=== PATIENT | female | born 1960 | race Caucasian/White ===

== ENCOUNTER 2017-06-03 11:47 | Inpatient (IN) | payer OTHER ==
[~2017-06-03] VITALS: Ht 154.9 cm; Wt 67.0 kg
[~2017-06-03 11:47] MED LIST: AMOX1TAB43 PO; BND25 PO; CETI10TA10 PO; FURO20TA PO; LEVO150T9 PO; LXP10 PO; NRN300 PO; ZVRO EXT
--- NOTE | 2017-06-03 12:41 | EMERGENCY ROOM VISIT NOTE ---
History Report prepared by Ganesh: Rachael Lewis Under the Supervision of: Dr. Pastor Ricks M.D. First contact with patient: 11:59 Chief Complaint: ABNORMAL LABS Stated Complaint: LOW BLOOD COUNT-NEED A TRANFUSION History of Present Illness The patient is a 57 year old female who presents to the Emergency Room with complaints of a low blood count. The patient reports that she was seen yesterday and was told that she had a low blood count, is anemic, and needs a transfusion. She states that she has an appointment in [address] Abdalla. She also states that she has hemorrhoids. The patient has been dizzy and light headed for a couple of months and states that she gets to the point that she can barely walk. She has also had shortness of breath and intermittent chest pain. She states that the last time she had chest pain was 2 weeks ago when she was walking. She describes the chest pain as being tight and only lasting for a few minutes. She also reports that she had black stool 1 month ago as well as bloody stool over 1 month ago. The patient admits that she has been drinking a 4 -pack of beer about every other day. She denies having abdominal pain and fevers. She also states that she does not have heart disease and that she does not take Ibuprofen or Naprosyn. She also states that she has a large hemorrhoid which she has had for some time. Source of History: patient Onset: yesterday Position: other (global) Quality: other (low blood count) Timing: constant Associated Symptoms: + chest pain, + SOB, + melena, + hematochezia, No fevers, No abdominal pain Note: additional symptoms: dizziness and light-headedness Review of Systems See HPI for pertinent positives & negatives. A total of 10 systems reviewed and were otherwise negative. Past Medical & Surgical Medical Problems: (1) Alcohol abuse (2) Anxiety (3) Benign hypertension (4) GI bleed (5) History of alcohol abuse (6) Hypothyroidism Family History No pertinent family history Social History Smoking Status: Current Every Day Smoker Alcohol Use: heavy Marital Status: Housing Status: lives with family Occupation Status: unemployed Current/Historical Medications Scheduled Furosemide (Lasix), 1 TAB PO DAILY Gabapentin (Neurontin), 300 MG PO TID Levothyroxine Sodium (Levothyroxine Sodium), 1 TAB PO DAILY Potassium Chloride (Micro-K Ext Rel), Unknown Dose PO DAILY Allergies Coded Allergies: No Known Allergies (Unverified , 06/03/17) Physical Exam Vital Signs Date Time Temp Pulse Resp B/P (MAP) Pulse Ox O2 Delivery O2 Flow Rate FiO2 06/03/17 15:05 81 135/83 99 Room Air 06/03/17 13:30 82 18 139/80 100 Room Air 06/03/17 13:14 72 06/03/17 11:54 36.8 81 17 138/76 100 Room Air Physical Exam Constitutional: Vital signs reviewed. Eyes: Pupils are equal round reactive to light. Conjunctiva are noninjected. ENT: Pharynx is clear without erythema or exudate. Mucous membranes are moist. Neck supple without meningeal signs. Respiratory: Clear to auscultation bilaterally. Breath sounds are equal bilaterally. Cardiovascular: Regular rate and rhythm. No rubs or gallops. GI: Soft, nondistended and nontender. Bowel sounds are present. Musculoskeletal: No peripheral edema. No lower extremity tenderness. Integumentary: No cyanosis. Pale. Rectal: Guaiac positive, brown stool, 2 by 4 cm mass at the 11 o'clock position above the anus with tenderness. No bleeding or thrombosis. Neurological: The patient is awake and alert. No focal deficits. Psychiatric: Normal affect. Medical Decision & Procedures ER Provider Diagnostic Interpretation: X-ray results as stated below per interpretation by me and the radiologist: CHEST ONE VIEW PORTABLE CLINICAL HISTORY: sob eval for pnea dyspnea COMPARISON STUDY: 10/02/2015 FINDINGS: The bones soft tissues and hemidiaphragms are normal. The cardiomediastinal silhouette is normal. The lungs are clear. The pulmonary vasculature is normal. IMPRESSION: Negative chest. Electronically signed by: Kirby Starr M.D. 06/03/2017 12:38 PM Dictated Date/Time: 06/03/2017 12:38 PM Laboratory Results 06/03/17 12:47 Red Blood Count 3.64, Mean Corpuscular Volume 63.5, Mean Corpuscular Hemoglobin 16.5, Mean Corpuscular Hemoglobin Concent 26.0, Neutrophils (%) (Auto) 70.2, Lymphocytes (%) (Auto) 17.1, Monocytes (%) (Auto) 12.3, Eosinophils (%) (Auto) 0.0, Basophils (%) (Auto) 0.4, Neutrophils # (Auto) 1.89, Lymphocytes # (Auto) 0.46, Monocytes # (Auto) 0.33, Eosinophils # (Auto) 0.00, Basophils # (Auto) 0.01 06/03/17 12:47 Test 06/03/17 12:47 06/03/17 13:00 White Blood Count 2.69 K/uL (4.8-10.8) Red Blood Count 3.64 M/uL (4.2-5.4) Hemoglobin 6.0 g/dL (12.0-16.0) Hematocrit 23.1 % (37-47) Mean Corpuscular Volume 63.5 fL (80-100) Mean Corpuscular Hemoglobin 16.5 pg (25-34) Mean Corpuscular Hemoglobin Concent 26.0 g/dl (32-36) Platelet Count 99 K/uL (130-400) Neutrophils (%) (Auto) 70.2 % Lymphocytes (%) (Auto) 17.1 % Monocytes (%) (Auto) 12.3 % Eosinophils (%) (Auto) 0.0 % Basophils (%) (Auto) 0.4 % Neutrophils # (Auto) 1.89 K/uL (1.4-6.5) Lymphocytes # (Auto) 0.46 K/uL (1.2-3.4) Monocytes # (Auto) 0.33 K/uL (0.11-0.59) Eosinophils # (Auto) 0.00 K/uL (0-0.5) Basophils # (Auto) 0.01 K/uL (0-0.2) RDW Standard Deviation 47.7 fL (36.4-46.3) RDW Coefficient of Variation 20.3 % (11.5-14.5) Immature Granulocyte % (Auto) 0.0 % Immature Granulocyte # (Auto) 0.00 K/uL (0.00-0.02) Platelet Estimate DECREASED Hypochromasia PRESENT Microcytosis PRESENT Prothrombin Time 14.6 SECONDS (9.0-12.0) Prothromb Time International Ratio 1.3 (0.9-1.1) Activated Partial Thromboplast Time 23.8 SECONDS (21.0-31.0) Partial Thromboplastin Ratio 0.9 Anion Gap 8.0 mmol/L (3-11) Est Creatinine Clear Calc Drug Dose 91.4 ml/min Estimated GFR () 117.9 Estimated GFR (Non- 101.7 BUN/Creatinine Ratio 16.4 (10-20) Calcium Level 9.5 mg/dl (8.5-10.1) Total Bilirubin 0.9 mg/dl (0.2-1) Direct Bilirubin 0.3 mg/dl (0-0.2) Aspartate Amino Transf (AST/SGOT) 30 U/L (15-37) Alanine Aminotransferase (ALT/SGPT) 24 U/L (12-78) Alkaline Phosphatase 93 U/L (45-117) Total Protein 7.4 gm/dl (6.4-8.2) Albumin 3.3 gm/dl (3.4-5.0) Lipase 183 U/L (73-393) Bedside Troponin I < 0.030 ng/ml (0-0.045) Laboratory results as reviewed by me. ECG Indication: weakness Rate (beats per minute): 76 Rhythm: normal sinus Findings: no acute ischemic change, no ectopy ED Course 1210: The patient was evaluated in room A12. A complete history and physical exam was performed. 1300: I obtained written and verbal consent for blood transfusion; discussed test results with patient. 1345: The blood bank says they cannot get blood for her for another 3-4 hours due to multiple antibodies requiring obtaining the blood from [place]. 1406: I spoke with Dr. Haley of [facility]. We discussed the patient and her results. 1430: I let her know about the delay for the blood products. 1442: I talked to Dr. Haley again and let him know that the blood won't be here until tomorrow morning. 1500: The patient will be further evaluated by Dr. Haley. Medical Decision This is a 57-year-old female presents with shortness breath, chest pain and anemia. Differential diagnosis includes severe anemia, GI bleed, coronary artery disease, pneumonia, kidney disease. I did perform a limited focused review of portions of the patient's old chart on the electronic medical record. The patient has had no recent pertinent visits to this hospital. Blood Pressure Screening: Patient was found to have an elevated blood pressure and was referred to their primary doctor for recheck and further treatment. Medication Reconciliation: I attest that I have personally reviewed the patient' s current medication list. I did evaluate the patient as noted above. I did perform a rectal examination on the patient. She has guaiac positive brown stool but no gross blood. There is a mass superior to her anus which looks like a hemorrhoid but appears to be an odd position for a hemorrhoid. It is tender to touch but without thrombosis or bleeding. She states she has had that for a very long time and is scheduled to see her doctor for it. This was the reason she had blood work drawn yesterday. IV access was established. The patient was placed on a continuous alarm security or surveillance monitor. I did order and personally review the patient's 12-lead EKG and chest x-ray as described above. I did order and review the patient's blood work as noted in the electronic medical record. She is pancytopenic which she has been in the past. Her hemoglobin, however, is 6 today. I did order 2 units of packed RBCs for transfusion. I did obtain written and oral consent for the transfusion after discussing risks and benefits with the patient. Unfortunately the blood bank states that because of her antibodies blood with have to be obtained from the [place] and that she would not be able to get the blood till tomorrow morning. She will be hospitalized for further evaluation and transfusion. I did discuss case with the hospitalist and caser up. Consults Time Called: 1330 Consulting Physician: Dr. Tera Brannon Returned Call: [phone] Haley of [facility]. We discussed the patient and her results. The patient will be further evaluated by Dr. Haley. Additional Consults: Time Called: 1440 Consulted Physician: Dr. Haely Returned Call: [phone] Additional Comments: I talked to Dr. Haley again and let him know that the blood won't be here until tomorrow morning. Impression Primary Impression: Severe anemia Additional Impressions: GI bleed Pancytopenia Acute chest pain Scribe Attestation The scribe's documentation has been prepared under my direct and personally reviewed by me in its entirety. I confirm that the note above accurately reflects all work, treatment, procedures, and medical decision making performed by me. Departure Information Dispostion Being Evaluated By Hospitalist Referrals Nina Abdalla D.O. (PCP) Patient Instructions My [facility] Problem Qualifiers Additional Impressions: GI bleed GI bleed type/associated pathology: unspecified gastrointestinal hemorrhage type Qualified Codes: K92.2 - Gastrointestinal hemorrhage, unspecified
[2017-06-03 13:29] LABS: INR 1.3 (0.9-1.1); PARTIAL THROMBOPLASTIN RATIO 0.9; PROTHROMBIN TIME (PATIENT) 14.6 SECONDS (9.0-12.0)
[2017-06-03 13:40] LABS: HEMATOCRIT 23.1 % (37-47); MEAN CELL VOLUME 63.5 fL (80-100); MEAN CORPUSCULAR HEMOGLOBIN 16.5 pg (25-34); PLATELET COUNT 99 K/uL (130-400); RED BLOOD COUNT 3.64 M/uL (4.2-5.4); WHITE BLOOD COUNT 2.69 K/uL (4.8-10.8)
[2017-06-03 13:42] LABS: BASO % 0.4 %; BASO ABS # 0.01 K/uL (0-0.2); BUN/CREATININE RATIO 16.4 (10-20); CALCIUM 9.5 mg/dl (8.5-10.1); COMPLETE YES; CREATININE 0.59 mg/dl (0.60-1.20); HYPOCHROMIA PRESENT; LYMPH % 17.1 %; LYMPH ABS # 0.46 K/uL (1.2-3.4); MICROCYTOSIS PRESENT; MONO % 12.3 %; NEUT % 70.2 %; PLT ESTIMATE DECREASED; POTASSIUM 3.6 mmol/L (3.5-5.1)
[2017-06-03] MEDS ORDERED: POTA10CA28 PO (13:54)
[2017-06-03] MEDS ORDERED: LEVO100T7 PO (13:54)
[2017-06-03] MEDS ORDERED: GABA-113 PO (13:54)
[2017-06-03] MEDS ORDERED: OCTREOTIDE IV BOLUS & DRIP IV STA (14:46)
[2017-06-03] MEDS ORDERED: MoRPHine SULFATE 2 MG/ML CARP IV STA (14:56)
[2017-06-03] MEDS ORDERED: ALUMINUM/MAGNESIUM/SIMETH (MAALOX MAX) 30 ML UDC PO PRN (15:00)
[2017-06-03] MEDS ORDERED: MAGNESIUM HYDROXIDE SUSP 30 ML UDC PO PRN (15:00)
[2017-06-03] MEDS ORDERED: ONDANSETRON INJ 2 MG/ML 2 ML VIAL IV PRN (15:00)
[2017-06-03] MEDS ORDERED: GABAPENTIN 600 MG TAB PO SCH ×2 (15:00→16:30)
[2017-06-03] MEDS ORDERED: LORAZEPAM 2 MG/ML 1 ML VIAL IV PRN (15:00)
[2017-06-03 16:00] VITALS: BP 127/68; PULSE 80; TEMP 36.9; O2SAT 100; Ht 154.9 cm; Wt 67.0 kg
[2017-06-03] MEDS ORDERED: OCTREOTIDE ACETATE INJ 100 MCG in SYRINGE 9 ML IV SCH (16:10)
[2017-06-03] MEDS ORDERED: OCTREOTIDE ACETATE INJ 500 MCG in NSS 100ML IV SCH (16:15)
[2017-06-03] MEDS ORDERED: PANTOprazole INJ 80 MG in DEXTROSE 5% 100ML IV SCH (16:15)
[2017-06-03] MEDS ORDERED: PANTOprazole INJ 40 MG in DEXTROSE 5% 100ML IV SCH (16:30)
[2017-06-03] MEDS ORDERED: MULTI-VITAMIN INFUSION INJ 10 ML, THIAMINE HCL INJ 100 MG, FoLIC ACID INJ 1 MG in SODIU... IV ONE (16:30)
[2017-06-03] MEDS: SODIUM CHLORIDE 0.9% 1000ML 1,000 ML IV SCH (16:33)
--- NOTE | 2017-06-03 16:46 | Gastrointestinal Consultation ---
Gastrointestinal Consultation Date of Consultation: Jun 03, 2017 Attending Physician: Martin Haley Consulting Physician: Rosie Barrera Reason for Consultation: Anemia History of Present Illness Patient is a 57 year old female w PMHx of ETOH abuse, anxiety, HTN, hypothyroidism who was referred to ED after her outpt labs showed significant anemia Hgb of 5. Repeat CBC in ED: WBC 2.69, H/H 6/23, Plt 99. PT/INR 14.6/1.3. CMP, including LFTs and Lipase normal. Pt denies any dizziness, light headedness , CP, SOB. May feels slightly tired. Though on ED H&P it was noted she was feeling dizzy, light headed, can barely walk, also having intermittent SOB, CP. She denies any n/v, abd pain. Had issues w dark colored stools up to 4 months ago but not recently. She is c/o mass on perineal area that's bleeding on daily basis. This mass has been present x 1 year, and is irritated by end of day causing some bright red bleeding notable on underwear. She denies any vaginal or rectal bleeding. She had been prescribed hemorrhoidal cream to the mass w/o relief of the discomfort, or bleeding. Past Medical/Surgical History Medical Problems: (1) Acute chest pain Status: Acute (2) Pancytopenia Status: Acute (3) Severe anemia Status: Acute Past Medical History: See above Family History No pertinent family history Social History Smoking Status: Current Some Day Smoker Alcohol Use: heavy Drug Use: none Marital Status: Housing Status: lives with family Occupation Status: unemployed Allergies Coded Allergies: No Known Allergies (Unverified , 06/03/17) Current Medications Home Meds and Scripts Medications Dose Route/Sig Max Daily Dose Days Date Category Micro-K Ext Rel (Potassium Chloride) 10 Meq Capcr Unknown Dose PO DAILY 06/03/17 Reported Neurontin (Gabapentin) 300 Mg Cap 300 Mg PO TID 06/03/17 Reported Levothyroxine Sodium 100 Mcg Tab 1 Tab PO DAILY 06/03/17 Reported Lasix (Furosemide) 20 Mg Tab 1 Tab PO DAILY 10/02/15 Rx Review of Systems Constitutional: No fever, No chills Respiratory: + dyspnea on exertion, No cough Cardiac: No chest pain Abdomen: No pain, No nausea, No vomiting Endo: + fatigue Skin: + see HPI Physical Exam Date Time Temp Pulse Resp B/P (MAP) Pulse Ox O2 Delivery O2 Flow Rate FiO2 06/03/17 16:00 36.9 80 15 127/68 100 Room Air 06/03/17 15:40 81 18 135/83 99 06/03/17 15:05 81 135/83 99 Room Air 06/03/17 13:30 82 18 139/80 100 Room Air 06/03/17 13:14 72 06/03/17 11:54 36.8 81 17 138/76 100 Room Air General Appearance: WD/WN, no apparent distress Eyes: normal inspection, PERRL, EOMI Neck: supple, no JVD, trachea midline Respiratory/Chest: normal breath sounds, no respiratory distress, no accessory muscle use Cardiovascular: regular rate, rhythm, no gallop, no murmur Abdomen: normal bowel sounds, non tender, soft Extremities: normal inspection, no pedal edema, no calf tenderness Neurologic/Psych: alert, normal mood/affect, oriented x 3 Skin: normal color, no jaundice, no rash, + pertinent finding (Perineal area w firm and tender mass; doesn't appear like an abscess (no erythema, warmth), no discharge or blood noted. ) Laboratory Results Last 24 Hours Test 06/03/17 12:47 06/03/17 13:00 White Blood Count 2.69 K/uL Red Blood Count 3.64 M/uL Hemoglobin 6.0 g/dL Hematocrit 23.1 % Mean Corpuscular Volume 63.5 fL Mean Corpuscular Hemoglobin 16.5 pg Mean Corpuscular Hemoglobin Concent 26.0 g/dl Platelet Count 99 K/uL Neutrophils (%) (Auto) 70.2 % Lymphocytes (%) (Auto) 17.1 % Monocytes (%) (Auto) 12.3 % Eosinophils (%) (Auto) 0.0 % Basophils (%) (Auto) 0.4 % Neutrophils # (Auto) 1.89 K/uL Lymphocytes # (Auto) 0.46 K/uL Monocytes # (Auto) 0.33 K/uL Eosinophils # (Auto) 0.00 K/uL Basophils # (Auto) 0.01 K/uL RDW Standard Deviation 47.7 fL RDW Coefficient of Variation 20.3 % Immature Granulocyte % (Auto) 0.0 % Immature Granulocyte # (Auto) 0.00 K/uL Platelet Estimate DECREASED Hypochromasia PRESENT Microcytosis PRESENT Prothrombin Time 14.6 SECONDS Prothromb Time International Ratio 1.3 Activated Partial Thromboplast Time 23.8 SECONDS Partial Thromboplastin Ratio 0.9 Sodium Level 142 mmol/L Potassium Level 3.6 mmol/L Chloride Level 109 mmol/L Carbon Dioxide Level 25 mmol/L Anion Gap 8.0 mmol/L Blood Urea Nitrogen 10 mg/dl Creatinine 0.59 mg/dl Est Creatinine Clear Calc Drug Dose 91.4 ml/min Estimated GFR () 117.9 Estimated GFR (Non- 101.7 BUN/Creatinine Ratio 16.4 Random Glucose 108 mg/dl Calcium Level 9.5 mg/dl Total Bilirubin 0.9 mg/dl Direct Bilirubin 0.3 mg/dl Aspartate Amino Transf (AST/SGOT) 30 U/L Alanine Aminotransferase (ALT/SGPT) 24 U/L Alkaline Phosphatase 93 U/L Total Protein 7.4 gm/dl Albumin 3.3 gm/dl Lipase 183 U/L Bedside Troponin I < 0.030 ng/ml Impression Patient is a 57 year old female currently seen for significant anemia (H/H 05/14) . She is w hx of ETOH cirrhosis (MELD 9), previous EGDs showed Grade I-II esophageal varices, Fariba Rao tear. Last EGD done in 2012. Colonoscopy in 2012 showed TA and TVA polyps w/o high grade dysplasia. She is currently w/o s/s of active GI bleeding though had been c/o perineal mass x 1 year that's irritating, tender and bleeding on daily basis. Plan - Ok for PPI IV BID - NPO after midnight for EGD eval tomorrow; she will need repeat colonoscopy though w currently how irritated perineal mass is will avoid bowel prep for colonoscopy. Will plan for outpt colonoscopy - Monitor H/H and transfuse prn - [employer] consulted for perineal mass eval.
--- NOTE | 2017-06-03 17:16 | History and Physical ---
History & Physical Date & Time of Service: Jun 03, 2017 at 17:04 Chief Complaint: Gi Bleed, Severe Anemia Primary Care Physician: Nina Abdalla D.O. History of Present Illness Source: patient, clinic records, hospital records This is a 57 year old female with a PMH of alcohol abuse, hx. of liver cirrhosis and esophageal varices, pancytopenia, hypothyroidism, depression presents to the ER after being sent by her primary care doctor - she had blood work done as an outpatient and was noted to have severe anemia. She states that she has had weakness/shortness of breath for a few weeks. She mentions that she has had dark stools a month ago, and has also vomiting with blood about two months ago, but nothing unusual since then. Currently denies fevers/chills, chest pain or shortness of breath, no nausea/vomiting/diarrhea. Painful perineal mass - unsure of when this began. Past Medical/Surgical History Medical Problems: (1) Alcohol abuse Status: Resolved (2) Anxiety Status: Chronic (3) Benign hypertension Status: Chronic (4) GI bleed Status: Resolved (5) History of alcohol abuse Status: Chronic (6) Hypothyroidism Status: Chronic Family History No pertinent family history Social History Smoking Status: Current Some Day Smoker Drug Use: none Marital Status: Occupational Status: unemployed Immunizations History of Influenza Vaccine: No Influenza Vaccine Date: Feb 01, 2012 History of Tetanus Vaccine?: Yes History of Pneumococcal: No History of Hepatitis B Vaccine: Unknown Multi-Drug Resistant Organisms History of MDRO: Yes Type of MDRO: MRSA Allergies Coded Allergies: No Known Allergies (Unverified , 06/03/17) Home Medications Scheduled Furosemide (Lasix), 1 TAB PO DAILY Gabapentin (Neurontin), 300 MG PO TID Levothyroxine Sodium (Levothyroxine Sodium), 1 TAB PO DAILY Potassium Chloride (Micro-K Ext Rel), Unknown Dose PO DAILY Review of Systems Constitutional: No fever, No chills, No sweats, No weakness, No fatigue Respiratory: No cough, No sputum, No wheezing, No shortness of breath, No dyspnea on exertion, No dyspnea at rest, No hemoptysis Cardiovascular: No chest pain, No edema, No palpitations Abdomen: + GI bleeding (dark stools), No pain, No nausea, No vomiting, No diarrhea, No constipation Musculoskeletal: No joint pain, No muscle pain Genitourinary - Female: No dysuria, No urinary frequency, No urinary urgency, No urinary incontinence, No urinary retention, No hematuria Neurologic: No memory loss, No weakness, No numbness/tingling, No balance problems Psychiatric: + substance abuse (ETOH), No depression symptoms (controlled with medications), No anxiety, No insomnia Endocrine: No fatigue Hematologic / Lymphatic: + abnormal bleeding/bruising (dark stools, hx. of vomiting bright blood) Allergic / Immunologic: No environmental allergies, No seasonal allergies Physical Exam Vital Signs Date Time Temp Pulse Resp B/P (MAP) Pulse Ox O2 Delivery O2 Flow Rate FiO2 06/03/17 16:00 36.9 80 15 127/68 100 Room Air 06/03/17 15:40 81 18 135/83 99 06/03/17 15:05 81 135/83 99 Room Air 06/03/17 13:30 82 18 139/80 100 Room Air 06/03/17 13:14 72 06/03/17 11:54 36.8 81 17 138/76 100 Room Air General Appearance: no apparent distress Head: normocephalic, atraumatic Eyes: normal inspection ENT: hearing grossly normal Respiratory/Chest: lungs clear, normal breath sounds, no respiratory distress, no accessory muscle use Cardiovascular: regular rate, rhythm, no edema, no murmur Abdomen/GI: normal bowel sounds, non tender, soft, + pertinent finding (+ perineal mass) Extremities/Musculoskelatal: no calf tenderness, normal capillary refill, no pedal edema Neurologic/Psych: no motor/sensory deficits, alert, normal mood/affect Diagnostics Laboratory Results Results Past 24 Hours Test 06/03/17 12:47 06/03/17 13:00 Range/Units White Blood Count 2.69 4.8-10.8 K/uL Red Blood Count 3.64 4.2-5.4 M/uL Hemoglobin 6.0 12.0-16.0 g/dL Hematocrit 23.1 37-47 % Mean Corpuscular Volume 63.5 80-100 fL Mean Corpuscular Hemoglobin 16.5 25-34 pg Mean Corpuscular Hemoglobin Concent 26.0 32-36 g/dl Platelet Count 99 130-400 K/uL Neutrophils (%) (Auto) 70.2 % Lymphocytes (%) (Auto) 17.1 % Monocytes (%) (Auto) 12.3 % Eosinophils (%) (Auto) 0.0 % Basophils (%) (Auto) 0.4 % Neutrophils # (Auto) 1.89 1.4-6.5 K/uL Lymphocytes # (Auto) 0.46 1.2-3.4 K/uL Monocytes # (Auto) 0.33 0.11-0.59 K/uL Eosinophils # (Auto) 0.00 0-0.5 K/uL Basophils # (Auto) 0.01 0-0.2 K/uL RDW Standard Deviation 47.7 36.4-46.3 fL RDW Coefficient of Variation 20.3 11.5-14.5 % Immature Granulocyte % (Auto) 0.0 % Immature Granulocyte # (Auto) 0.00 0.00-0.02 K/uL Platelet Estimate DECREASED Hypochromasia PRESENT Microcytosis PRESENT Prothrombin Time 14.6 9.0-12.0 SECONDS Prothromb Time International Ratio 1.3 0.9-1.1 Activated Partial Thromboplast Time 23.8 21.0-31.0 SECONDS Partial Thromboplastin Ratio 0.9 Sodium Level 142 136-145 mmol/L Potassium Level 3.6 3.5-5.1 mmol/L Chloride Level 109 98-107 mmol/L Carbon Dioxide Level 25 21-32 mmol/L Anion Gap 8.0 3-11 mmol/L Blood Urea Nitrogen 10 7-18 mg/dl Creatinine 0.59 0.60-1.20 mg/dl Est Creatinine Clear Calc Drug Dose 91.4 ml/min Estimated GFR () 117.9 Estimated GFR (Non- 101.7 BUN/Creatinine Ratio 16.4 10-20 Random Glucose 108 70-99 mg/dl Calcium Level 9.5 8.5-10.1 mg/dl Total Bilirubin 0.9 0.2-1 mg/dl Direct Bilirubin 0.3 0-0.2 mg/dl Aspartate Amino Transf (AST/SGOT) 30 15-37 U/L Alanine Aminotransferase (ALT/SGPT) 24 12-78 U/L Alkaline Phosphatase 93 45-117 U/L Total Protein 7.4 6.4-8.2 gm/dl Albumin 3.3 3.4-5.0 gm/dl Lipase 183 73-393 U/L Bedside Troponin I < 0.030 0-0.045 ng/ml Diagnostic Radiology CHEST ONE VIEW PORTABLE CLINICAL HISTORY: sob eval for pnea dyspnea COMPARISON STUDY: 10/02/2015 FINDINGS: The bones soft tissues and hemidiaphragms are normal. The cardiomediastinal silhouette is normal. The lungs are clear. The pulmonary vasculature is normal. IMPRESSION: Negative chest. EKG Normal sinus rhythm Normal ECG Impression Assessment and Plan This is a 57 year old female with a PMH of alcohol abuse, hx. of liver cirrhosis and esophageal varices, pancytopenia, hypothyroidism, depression sent to the ER for severe anemia Severe Anemia Hgb on admission = 6.0 requires blood from [place], which will arrive in AM (06/04) type and crossed, will transfuse two units when available possibly from an upper GI bleed source hx. of esophageal varices, unsure if she ever had an EGD done in the past initially started on Protonix and Sandostatin drips - stopped and now on PPI BID as per GI consulted GI for further input likely EGD in AM (06/04); colonoscopy as outpatient Perineal Mass no hemorrhoids, no abscess consulted trading assistant for further input EtOH abuse last drink was yesterday (06/02) does not admit to a drinking problem, though records indicate early cirrhosis will put in for gabapentin withdrawal protocol one day of banana bag, then switch to multivitamin, folic acid, thiamine check Mag and replace if needed Hypothyroidism continue Synthroid DVT ppx SCDs FULL CODE Advanced Directives Existing Living Will: No Existing Power of Insulator Apprentice: No VTE Prophylaxis VTE Risk Assessment Done? Y/N: Yes Risk Level: Moderate
[2017-06-03] MEDS: PANTOprazole INJ 40 MG in SYRINGE 0 ML IV SCH (17:41)
[2017-06-03] MEDS ORDERED: MoRPHine SULFATE 2 MG/ML CARP IV SCH (17:45)
[2017-06-03 19:01] VITALS: BP 123/73; PULSE 91; TEMP 37; O2SAT 95
[2017-06-03 20:00] VITALS: O2SAT 95
[2017-06-03] MEDS ORDERED: GABAPENTIN 300 MG CAP PO SCH (21:00)
[2017-06-03] MEDS: GABAPENTIN 600MG Q6H DOSE PO SCH (21:03)
[2017-06-03] MEDS: MoRPHine SULFATE 2 MG/ML CARP IV PRN (21:08)
[2017-06-03 23:32] VITALS: BP 108/72; PULSE 81; TEMP 37.1; O2SAT 96
[2017-06-03 23:59] VITALS: O2SAT 96
[2017-06-04] VITALS (18 sets, daily range): BP systolic 95–129; BP diastolic 60–79; PULSE 66–82; TEMP 36.6–37.3; O2SAT 94–100
[2017-06-04] MEDS: MoRPHine SULFATE 2 MG/ML CARP IV PRN ×6 (01:14→22:40)
[2017-06-04] MEDS: SODIUM CHLORIDE 0.9% 1000ML 1,000 ML IV SCH ×2 (01:15→18:35)
[2017-06-04] MEDS: GABAPENTIN 600MG Q6H DOSE PO SCH (05:19)
[2017-06-04] MEDS: LEVOTHYROXINE 100 MCG TAB PO SCH (05:20)
[2017-06-04] MEDS: PANTOprazole INJ 40 MG in SYRINGE 0 ML IV SCH (07:50)
[2017-06-04] MEDS: POTASSIUM CHLORIDE 20 MEQ TABCR PO SCH (07:51)
[2017-06-04] MEDS: FUROSEMIDE 20 MG TAB PO SCH (07:51)
[2017-06-04] MEDS ORDERED: PROPOFOL IV EMULSION 10 MG/ML 20 ML VIAL IV ONE (08:15)
[2017-06-04] MEDS ORDERED: LIDOCAINE HCL 2% 2 ML VIAL (20MG/ML) ONE (08:15)
--- NOTE | 2017-06-04 09:18 | GI REPORT ---
Procedure Date: 06/04/2017 8:56 AM Procedure: Upper GI endoscopy Indications: Iron deficiency anemia Medicines: Propofol per Anesthesia Complications: No immediate complications. Estimated blood loss: None. Estimated Blood Loss: Estimated blood loss: none. Procedure: Pre-Anesthesia Assessment: - Prior to the procedure, a History and Physical was performed, and patient medications, allergies and sensitivities were reviewed. The patient's tolerance of previous anesthesia was reviewed. - The risks and benefits of the procedure and the sedation options and risks were discussed with the patient. All questions were answered and informed consent was obtained. - Patient identification and proposed procedure were verified prior to the procedure by the physician and the nurse. The procedure was verified in the pre-procedure area in the procedure room. - Mental Status Examination: alert and oriented. Airway Examination: normal oropharyngeal airway and neck mobility. Respiratory Examination: clear to auscultation. CV Examination: normal. Abdominal Examination: bowel sounds present, abdomen soft and non-tender, no masses or organomegaly noted. - ASA Grade Assessment: IV - A patient with severe systemic disease that is a constant threat to life. After obtaining informed consent, the endoscope was passed under direct vision. Throughout the procedure, the patient's blood pressure, pulse, and oxygen saturations were monitored continuously. The scope was introduced through the mouth, and advanced to the second part of duodenum. The upper GI endoscopy was accomplished without difficulty. The patient tolerated the procedure well. Findings: Grade II varices were found in the lower third of the esophagus. A large amount of food (residue) was found in the gastric body. Impression: - Grade II esophageal varices. No stigmata of bleeding. not banded today secondary to a large amount of food in the stomach. Will need a repeat EGD at the time of her outpatient colonoscopy. - A large amount of food (residue) in the stomach. - No specimens collected. Recommendation: - Perform a colonoscopy at appointment to be scheduled. - Perform an upper GI endoscopy at appointment to be scheduled. - Advance diet as tolerated. - Return patient to [facility] for ongoing care. Rosie Barrera D.O. Rosie Barrera DO 06/04/2017 9:18:48 AM This report has been signed electronically. Note Initiated On: 06/04/2017 8:56 AM I attest to the content of the Intraoperative Record and orders documented therein, exceptions below
--- NOTE | 2017-06-04 09:28 | Anesthesiology Progress Note ---
Anesthesia Post Op Note Date & Time Jun 04, 2017 at 09:28 Vital Signs Pain Intensity: 8.0 Vital Signs Past 12 Hours Date Time Temp Pulse Resp B/P (MAP) Pulse Ox O2 Delivery O2 Flow Rate FiO2 06/04/17 09:21 70 18 111/69 (83) 93 Room Air 06/04/17 09:06 69 18 111/76 (88) 97 Room Air 06/04/17 08:38 37.2 75 20 129/79 96 Room Air 06/04/17 08:36 37.2 68 20 129/79 96 06/04/17 08:31 37.2 68 20 129/79 (96) 96 Room Air 06/04/17 08:00 66 18 115/71 94 06/04/17 07:30 37.0 68 20 110/70 95 06/04/17 07:15 36.8 66 20 104/72 94 06/04/17 07:10 37.2 67 16 106/71 (83) 96 Room Air 06/04/17 07:00 36.9 71 18 106/71 95 06/04/17 06:50 37.2 70 18 110/71 95 06/04/17 06:00 36.6 69 18 121/69 96 06/04/17 05:20 37.0 82 16 110/76 94 06/04/17 05:05 37.0 69 18 109/64 96 06/04/17 04:50 36.6 68 16 102/65 96 06/04/17 04:34 36.6 71 18 112/67 96 06/04/17 04:00 95 Room Air 06/04/17 04:00 37.2 81 20 122/70 (87) 95 Room Air 06/03/17 23:59 96 Room Air 06/03/17 23:32 37.1 81 20 108/72 (84) 96 Room Air Notes Mental Status: alert / awake / arousable, participated in evaluation Pt Amnestic to Procedure: Yes Nausea / Vomiting: adequately controlled Pain: adequately controlled Airway Patency, RR, SpO2: stable & adequate BP & HR: stable & adequate Hydration State: stable & adequate Anesthetic Complications: no major complications apparent
[2017-06-04 11:05] LABS: BUN/CREATININE RATIO 11.6 (10-20); CALCIUM 8.4 mg/dl (8.5-10.1); CREATININE 0.67 mg/dl (0.60-1.20); MAGNESIUM 1.8 mg/dl (1.8-2.4)
[2017-06-04 11:29] LABS: MEAN CELL VOLUME 68.5 fL (80-100); MEAN CORPUSCULAR HEMOGLOBIN 18.5 pg (25-34); PLATELET COUNT 85 K/uL (130-400); PLT ESTIMATE DECREASED; RED BLOOD COUNT 3.94 M/uL (4.2-5.4); WHITE BLOOD COUNT 2.51 K/uL (4.8-10.8)
--- NOTE | 2017-06-04 12:09 | Progress Note ---
Internal Med Progress Note Date of Service: Jun 04, 2017. Provider Documentation: SUBJECTIVE: Seen and examined at bedside. Denies any chest pain, SOB, melena, blood in stools. Feels well. Offers no complaints. Got EGD this morning OBJECTIVE: Vital Signs-as noted below Physical Exam: General Appearance:Moderately built and nourished, no apparent distress Head: normocephalic, Atraumatic Eyes: normal inspection, EOMI, PERRL Neck: supple, Trachea midline Respiratory/Chest: Normal breath sounds, CTA Cardiovascular: S1, S2, No murmur Abdomen/GI:Soft, Non tender, Bowel sounds present Extremities/Musculoskelatal:normal inspection, no edema Neurologic/Psych:AAOX3, grossly no focal neurological deficits Skin: normal color, warm Lab data as noted below. ASSESSMENT & PLAN: Patient is a 57 yr female with a PMH of alcohol abuse, hx. of liver cirrhosis and esophageal varices, pancytopenia, hypothyroidism, depression sent to the ER for severe anemia SEVERE ANEMIA/PANCYTOPENIA Hgb on admission:6.0 S/P 2 units PRBCs S/P EGD on 06/04: Grade II Esophageal Varices: no banding done secondary to large food in stomach Needs repeat EGD along with colonoscopy: likely to be done as outpatient Initially on Protonix and Sandostatin drips Continue IV PPI BID per GI GI following Monitor CBC Perineal Mass no hemorrhoids, no abscess consulted port captain for further input ETOH abuse last drink was on 06/02 does not admit to a drinking problem, though records indicate early cirrhosis Continue gabapentin withdrawal protocol Continue folic acid, thiamine Hypothyroidism continue Synthroid DVT ppx SCDs Re: pancytopenia CODE STATUS: FULL CODE Vital Signs: Date Time Temp Pulse Resp B/P (MAP) Pulse Ox O2 Delivery O2 Flow Rate FiO2 06/04/17 11:50 36.9 75 18 115/72 (86) 95 Room Air 06/04/17 09:34 70 18 112/69 (83) 95 Room Air 06/04/17 09:21 70 18 111/69 (83) 93 Room Air 06/04/17 09:06 69 18 111/76 (88) 97 Room Air 06/04/17 08:38 37.2 75 20 129/79 96 Room Air 06/04/17 08:36 37.2 68 20 129/79 96 06/04/17 08:31 37.2 68 20 129/79 (96) 96 Room Air 06/04/17 08:00 Room Air 06/04/17 08:00 66 18 115/71 94 06/04/17 07:30 37.0 68 20 110/70 95 06/04/17 07:15 36.8 66 20 104/72 94 06/04/17 07:10 37.2 67 16 106/71 (83) 96 Room Air 06/04/17 07:00 36.9 71 18 106/71 95 06/04/17 06:50 37.2 70 18 110/71 95 06/04/17 06:00 36.6 69 18 121/69 96 06/04/17 05:20 37.0 82 16 110/76 94 06/04/17 05:05 37.0 69 18 109/64 96 06/04/17 04:50 36.6 68 16 102/65 96 06/04/17 04:34 36.6 71 18 112/67 96 06/04/17 04:00 95 Room Air 06/04/17 04:00 37.2 81 20 122/70 (87) 95 Room Air 06/03/17 23:59 96 Room Air 06/03/17 23:32 37.1 81 20 108/72 (84) 96 Room Air 06/03/17 20:00 95 Room Air 06/03/17 19:01 37.0 91 18 123/73 (90) 95 Room Air 06/03/17 16:00 36.9 80 15 127/68 100 Room Air 06/03/17 15:40 81 18 135/83 99 06/03/17 15:05 81 135/83 99 Room Air 06/03/17 13:30 82 18 139/80 100 Room Air 06/03/17 13:14 72 Lab Results: Results Past 24 Hours Test 06/03/17 12:47 06/03/17 13:00 06/04/17 09:59 Range/Units White Blood Count 2.69 2.51 4.8-10.8 K/uL Red Blood Count 3.64 3.94 4.2-5.4 M/uL Hemoglobin 6.0 7.3 12.0-16.0 g/dL Hematocrit 23.1 27.0 37-47 % Mean Corpuscular Volume 63.5 68.5 80-100 fL Mean Corpuscular Hemoglobin 16.5 18.5 25-34 pg Mean Corpuscular Hemoglobin Concent 26.0 27.0 32-36 g/dl Platelet Count 99 85 130-400 K/uL Neutrophils (%) (Auto) 70.2 % Lymphocytes (%) (Auto) 17.1 % Monocytes (%) (Auto) 12.3 % Eosinophils (%) (Auto) 0.0 % Basophils (%) (Auto) 0.4 % Neutrophils # (Auto) 1.89 1.4-6.5 K/uL Lymphocytes # (Auto) 0.46 1.2-3.4 K/uL Monocytes # (Auto) 0.33 0.11-0.59 K/uL Eosinophils # (Auto) 0.00 0-0.5 K/uL Basophils # (Auto) 0.01 0-0.2 K/uL RDW Standard Deviation 47.7 56.6 36.4-46.3 fL RDW Coefficient of Variation 20.3 22.6 11.5-14.5 % Immature Granulocyte % (Auto) 0.0 % Immature Granulocyte # (Auto) 0.00 0.00-0.02 K/uL Platelet Estimate DECREASED DECREASED Hypochromasia PRESENT Microcytosis PRESENT Prothrombin Time 14.6 9.0-12.0 SECONDS Prothromb Time International Ratio 1.3 0.9-1.1 Activated Partial Thromboplast Time 23.8 21.0-31.0 SECONDS Partial Thromboplastin Ratio 0.9 Sodium Level 142 144 136-145 mmol/L Potassium Level 3.6 4.0 3.5-5.1 mmol/L Chloride Level 109 111 98-107 mmol/L Carbon Dioxide Level 25 25 21-32 mmol/L Anion Gap 8.0 8.0 3-11 mmol/L Blood Urea Nitrogen 10 8 7-18 mg/dl Creatinine 0.59 0.67 0.60-1.20 mg/dl Est Creatinine Clear Calc Drug Dose 91.4 81.3 ml/min Estimated GFR () 117.9 113.1 Estimated GFR (Non- 101.7 97.6 BUN/Creatinine Ratio 16.4 11.6 10-20 Random Glucose 108 107 70-99 mg/dl Calcium Level 9.5 8.4 8.5-10.1 mg/dl Total Bilirubin 0.9 0.2-1 mg/dl Direct Bilirubin 0.3 0-0.2 mg/dl Aspartate Amino Transf (AST/SGOT) 30 15-37 U/L Alanine Aminotransferase (ALT/SGPT) 24 12-78 U/L Alkaline Phosphatase 93 45-117 U/L Total Protein 7.4 6.4-8.2 gm/dl Albumin 3.3 3.4-5.0 gm/dl Lipase 183 73-393 U/L Bedside Troponin I < 0.030 0-0.045 ng/ml Magnesium Level 1.8 1.8-2.4 mg/dl Hepatitis C Antibody Screen NEG NEG
[2017-06-04] MEDS ORDERED: THIAMINE HCL 100 MG TAB PO ONE (12:15)
[2017-06-04] MEDS: GABAPENTIN 600MG Q8H DOSE PO SCH ×2 (14:09→22:40)
--- NOTE | 2017-06-04 17:02 | Medical Consult ---
Consultation Date of Consultation: Jun 04, 2017. Attending Physician: Ming Aburto MD Reason for Consultation: Perineal mass History of Present Illness The patient is a 57 year old female with a PMH of alcohol abuse, hx. of liver cirrhosis and esophageal varices, pancytopenia, hypothyroidism, depression was admitted to medicine for acute anemia. I am being consulted for a painful perineal mass/lesion. Per patient she has had this for at least the past 2 years and has always been told it was an external hemorrhoid. Since this January it has grown significantly and very painful. She has a hard time sitting due to the pain. On exam she has a polypoid lesion located between the vaginal opening and the anus. Upon moving the lesion there is some ulcerations bilaterally. I did explain to her that it is concerning and would need to be evaluated with a tissue sample in the form of biopsy or removal. Due to the pain it is not possible to do bedside. I recommend that she be followed up in the office and can attempt a biopsy in the office or if necessary can complete under anesthesia in the out patient surgery setting. Patient agreeable. Past Medical/Surgical History Medical Problems: (1) Acute chest pain Status: Acute (2) Pancytopenia Status: Acute (3) Severe anemia Status: Acute Family History No pertinent family history Social History Smoking Status: Current Every Day Smoker Drug Use: none Marital Status: Housing Status: lives with family Occupation Status: unemployed Allergies Coded Allergies: No Known Allergies (Unverified , 06/03/17) Home Medications Reported Home Medications Medications Dose Route/Sig Max Daily Dose Days Date Category Micro-K Ext Rel (Potassium Chloride) 10 Meq Capcr Unknown Dose PO DAILY 06/03/17 Reported Neurontin (Gabapentin) 300 Mg Cap 300 Mg PO TID 06/03/17 Reported Levothyroxine Sodium 100 Mcg Tab 1 Tab PO DAILY 06/03/17 Reported Lasix (Furosemide) 20 Mg Tab 1 Tab PO DAILY 10/02/15 Rx Current Inpatient Medications Current Inpatient Medications Medications (Trade) Dose Ordered Sig/Robby Route Start Time Stop Time Status Last Admin Dose Admin Furosemide (Lasix Tab) 20 mg DAILY PO 06/04/17 09:00 07/04/17 08:59 06/04/17 07:51 20 MG Levothyroxine Sodium (Synthroid Tab) 100 mcg DAILYBB PO 06/04/17 06:00 07/04/17 05:59 Potassium Chloride (Klor-Con Tab) 20 meq DAILY PO 06/04/17 09:00 07/04/17 08:59 06/04/17 07:51 20 MEQ Sodium Chloride 1,000 ml @ 80 mls/hr [id number] IV 06/03/17 16:10 07/03/17 16:09 06/04/17 01:15 80 MLS/HR Al Hydrox/Mg Hydrox/Simethicone (Maalox Max Susp) 15 ml Q4H PRN PO 06/03/17 15:00 07/03/17 14:59 Magnesium Hydroxide (Milk Of Magnesia Susp) 30 ml Q12H PRN PO 06/03/17 15:00 07/03/17 14:59 Ondansetron HCl (Zofran Inj) 4 mg Q6H PRN IV 06/03/17 15:00 07/03/17 14:59 Lorazepam (Ativan Inj) 1 mg ONE PRN IV 06/03/17 15:00 07/03/17 14:59 Gabapentin (Neurontin Tab) 600 mg Q8H PO 06/04/17 14:00 06/05/17 06:01 06/04/17 14:09 600 MG Gabapentin (Neurontin Tab) 600 mg Q12H PO 06/05/17 18:00 06/06/17 06:01 Gabapentin (Neurontin Tab) 600 mg Q24H PO 06/07/17 06:00 06/07/17 06:01 Pantoprazole Sodium 40 mg/ Syringe 10 ml @ 5 mls/min DAILY@09,21 IV 06/03/17 21:00 07/03/17 20:59 06/04/17 07:50 5 MLS/MIN Morphine Sulfate (MoRPHine SULFATE INJ) 1 mg Q4 PRN IV 06/03/17 21:30 06/17/17 21:29 06/04/17 14:09 1 MG Thiamine HCl (Vitamin B-1 Tab) 100 mg QAM PO 06/05/17 09:00 07/05/17 08:59 Folic Acid (Folvite Tab) 1 mg QAM PO 06/05/17 09:00 07/05/17 08:59 Review of Systems Constitutional: No fever, No chills, No sweats, No weight loss, No weakness, No fatigue, No problem reported Respiratory: No cough, No sputum, No wheezing, No shortness of breath, No dyspnea on exertion, No dyspnea at rest, No hemoptysis, No problem reported Cardiovascular: No chest pain, No orthopnea, No PND, No edema, No claudication , No palpitations, No problem reported Genitourinary - Female: + problem reported (painful perineal lesion) Integumentary: No rash, No itch, No new/changing skin lesions, No color change , No bleeding, No problem reported Physical Exam Date Time Temp Pulse Resp B/P (MAP) Pulse Ox O2 Delivery O2 Flow Rate FiO2 06/04/17 12:00 Room Air 06/04/17 11:50 36.9 75 18 115/72 (86) 95 Room Air 06/04/17 09:34 70 18 112/69 (83) 95 Room Air 06/04/17 09:21 70 18 111/69 (83) 93 Room Air 06/04/17 09:06 69 18 111/76 (88) 97 Room Air 06/04/17 08:38 37.2 75 20 129/79 96 Room Air 06/04/17 08:36 37.2 68 20 129/79 96 06/04/17 08:31 37.2 68 20 129/79 (96) 96 Room Air 06/04/17 08:00 Room Air 06/04/17 08:00 66 18 115/71 94 06/04/17 07:30 37.0 68 20 110/70 95 06/04/17 07:15 36.8 66 20 104/72 94 06/04/17 07:10 37.2 67 16 106/71 (83) 96 Room Air 06/04/17 07:00 36.9 71 18 106/71 95 06/04/17 06:50 37.2 70 18 110/71 95 06/04/17 06:00 36.6 69 18 121/69 96 06/04/17 05:20 37.0 82 16 110/76 94 06/04/17 05:05 37.0 69 18 109/64 96 06/04/17 04:50 36.6 68 16 102/65 96 06/04/17 04:34 36.6 71 18 112/67 96 06/04/17 04:00 95 Room Air 06/04/17 04:00 37.2 81 20 122/70 (87) 95 Room Air 06/03/17 23:59 96 Room Air 06/03/17 23:32 37.1 81 20 108/72 (84) 96 Room Air 06/03/17 20:00 95 Room Air 06/03/17 19:01 37.0 91 18 123/73 (90) 95 Room Air 06/03/17 16:00 36.9 80 15 127/68 100 Room Air 06/03/17 15:40 81 18 135/83 99 06/03/17 15:05 81 135/83 99 Room Air General Appearance: WD/WN, no apparent distress Respiratory/Chest: chest non-tender, lungs clear Cardiovascular: regular rate, rhythm Abdomen/GI: normal bowel sounds, soft Genitourinary - Female: + pertinent finding (enlarged inflamed perineal body lesion) Neurologic/Psych: alert, normal mood/affect, oriented x 3 Skin: normal color, warm/dry Laboratory Results Last 24 Hours Test 06/04/17 09:59 White Blood Count 2.51 K/uL Red Blood Count 3.94 M/uL Hemoglobin 7.3 g/dL Hematocrit 27.0 % Mean Corpuscular Volume 68.5 fL Mean Corpuscular Hemoglobin 18.5 pg Mean Corpuscular Hemoglobin Concent 27.0 g/dl RDW Standard Deviation 56.6 fL RDW Coefficient of Variation 22.6 % Platelet Count 85 K/uL Platelet Estimate DECREASED Sodium Level 144 mmol/L Potassium Level 4.0 mmol/L Chloride Level 111 mmol/L Carbon Dioxide Level 25 mmol/L Anion Gap 8.0 mmol/L Blood Urea Nitrogen 8 mg/dl Creatinine 0.67 mg/dl Est Creatinine Clear Calc Drug Dose 81.3 ml/min Estimated GFR () 113.1 Estimated GFR (Non- 97.6 BUN/Creatinine Ratio 11.6 Random Glucose 107 mg/dl Calcium Level 8.4 mg/dl Magnesium Level 1.8 mg/dl Hepatitis C Antibody Screen NEG Assessment & Plan (1) Vulvar lesion Status: Acute Patient was examined noting a concerning lesion located between the vagina and anus. The lesion was very painful to examine with inflammation noted. There was some ulcerations as well. Explained to the patient that the lesion is concerning and needs to be biopsied or removed. She states she would rather have this removed under anesthesia as it is extremely painful to even sit or touch. I will have her come to the office within the next week or two and can make a plan with her. Patient agreeable.
[2017-06-04 17:40] LABS: HEMATOCRIT 26.5 % (37-47)
[2017-06-04] MEDS: PANTOprazole SOD 40 MG TAB PO SCH (19:43)
[2017-06-05] VITALS (15 sets, daily range): BP systolic 100–134; BP diastolic 54–79; PULSE 69–94; TEMP 36.4–37.6; O2SAT 95–100
[2017-06-05] MEDS: MoRPHine SULFATE 2 MG/ML CARP IV PRN ×5 (02:49→21:10)
[2017-06-05] MEDS: GABAPENTIN 600MG Q8H DOSE PO SCH (06:05)
[2017-06-05] MEDS: LEVOTHYROXINE 100 MCG TAB PO SCH (06:06)
[2017-06-05] MEDS: SODIUM CHLORIDE 0.9% 1000ML 1,000 ML IV SCH (06:07)
[2017-06-05 06:19] LABS: HEMATOCRIT 25.9 % (37-47); MEAN CELL VOLUME 67.4 fL (80-100); RED BLOOD COUNT 3.84 M/uL (4.2-5.4)
[2017-06-05 06:28] LABS: MEAN CORPUSCULAR HGB CONC 26.6 g/dl (32-36)
[2017-06-05 06:33] LABS: PLATELET COUNT 85 K/uL (130-400)
[2017-06-05 06:34] LABS: ANISOCYTOSIS PRESENT; BASO % 0.4 %; BASO ABS # 0.01 K/uL (0-0.2); COMPLETE YES; EOS % 2.2 %; GIANT PLATELETS 1+; HYPOCHROMIA PRESENT; LYMPH % 32.6 %; LYMPH ABS # 0.88 K/uL (1.2-3.4); MICROCYTOSIS PRESENT; MONO % 13.3 %; NEUT % 51.5 %; PLT ESTIMATE DECREASED
[2017-06-05 06:42] LABS: BUN/CREATININE RATIO 21.8 (10-20); CALCIUM 7.9 mg/dl (8.5-10.1); CREATININE 0.57 mg/dl (0.60-1.20); POTASSIUM 3.6 mmol/L (3.5-5.1)
[2017-06-05] MEDS: PANTOprazole SOD 40 MG TAB PO SCH ×2 (08:20→21:10)
[2017-06-05] MEDS: POTASSIUM CHLORIDE 20 MEQ TABCR PO SCH (08:20)
[2017-06-05] MEDS: FUROSEMIDE 20 MG TAB PO SCH (08:20)
[2017-06-05] MEDS: THIAMINE HCL 100 MG TAB PO SCH (08:21)
--- NOTE | 2017-06-05 11:24 | Progress Note ---
Internal Med Progress Note Date of Service: Jun 05, 2017. Provider Documentation: SUBJECTIVE: Seen and examined at bedside. States having some pain at the perineal region. Denies any chest pain, SOB, melena, blood in stools. Offers no other complaints. Hb:6.9 today OBJECTIVE: Vital Signs-as noted below Physical Exam: General Appearance:Moderately built and nourished, no apparent distress Head: normocephalic, Atraumatic Eyes: normal inspection, EOMI, PERRL Neck: supple, Trachea midline Respiratory/Chest: Normal breath sounds, CTA Cardiovascular: S1, S2, No murmur Abdomen/GI:Soft, Non tender, Bowel sounds present Extremities/Musculoskelatal:normal inspection, no edema Neurologic/Psych:AAOX3, grossly no focal neurological deficits Skin: normal color, warm Lab data as noted below. ASSESSMENT & PLAN: Patient is a 57 yr female with a PMH of alcohol abuse, hx. of liver cirrhosis and esophageal varices, pancytopenia, hypothyroidism, depression sent to the ER for severe anemia SEVERE ANEMIA/PANCYTOPENIA Hgb on admission:6.0 S/P 2 units PRBCs S/P EGD on 06/04: Grade II Esophageal Varices: no banding done secondary to large food in stomach Needs repeat EGD along with colonoscopy: likely to be done as outpatient Initially on Protonix and Sandostatin drips Continue PO PPI BID Hb:6.9 today. Plan to transfuse 2 more units PRBC today GI following Monitor CBC Perineal Mass no hemorrhoids, no abscess Appreciate saddle stitch operator input Planned for follow up as outpatient for possible biopsy/removal ETOH abuse last drink was on 06/02 does not admit to a drinking problem, though records indicate early cirrhosis Continue gabapentin withdrawal protocol Continue folic acid, thiamine Hypothyroidism continue Synthroid DVT ppx SCDs Re: pancytopenia CODE STATUS: FULL CODE Vital Signs: Date Time Temp Pulse Resp B/P (MAP) Pulse Ox O2 Delivery O2 Flow Rate FiO2 06/05/17 08:00 Room Air 06/05/17 07:25 37.2 69 19 114/76 (89) 96 Room Air 06/05/17 04:00 Room Air 06/05/17 03:45 37.1 76 18 107/63 (78) 95 Room Air 06/05/17 00:01 Room Air 06/04/17 23:56 37.3 70 19 95/60 (72) 98 Room Air 06/04/17 20:00 Room Air 06/04/17 19:08 37.0 74 18 99/71 (80) 97 Room Air 06/04/17 16:00 Room Air 06/04/17 15:22 36.9 66 20 106/74 (85) 100 Room Air 06/04/17 12:00 Room Air 06/04/17 11:50 36.9 75 18 115/72 (86) 95 Room Air Lab Results: Results Past 24 Hours Test 06/04/17 16:59 06/05/17 05:41 Range/Units Hemoglobin 7.3 6.9 12.0-16.0 g/dL Hematocrit 26.5 25.9 37-47 % White Blood Count 2.70 4.8-10.8 K/uL Red Blood Count 3.84 4.2-5.4 M/uL Mean Corpuscular Volume 67.4 80-100 fL Mean Corpuscular Hemoglobin 18.0 25-34 pg Mean Corpuscular Hemoglobin Concent 26.6 32-36 g/dl Platelet Count 85 130-400 K/uL Neutrophils (%) (Auto) 51.5 % Lymphocytes (%) (Auto) 32.6 % Monocytes (%) (Auto) 13.3 % Eosinophils (%) (Auto) 2.2 % Basophils (%) (Auto) 0.4 % Neutrophils # (Auto) 1.39 1.4-6.5 K/uL Lymphocytes # (Auto) 0.88 1.2-3.4 K/uL Monocytes # (Auto) 0.36 0.11-0.59 K/uL Eosinophils # (Auto) 0.06 0-0.5 K/uL Basophils # (Auto) 0.01 0-0.2 K/uL RDW Standard Deviation 56.5 36.4-46.3 fL RDW Coefficient of Variation 22.6 11.5-14.5 % Immature Granulocyte % (Auto) 0.0 % Immature Granulocyte # (Auto) 0.00 0.00-0.02 K/uL Platelet Estimate DECREASED Giant Platelets 1+ Hypochromasia PRESENT Anisocytosis PRESENT Microcytosis PRESENT Sodium Level 145 136-145 mmol/L Potassium Level 3.6 3.5-5.1 mmol/L Chloride Level 112 98-107 mmol/L Carbon Dioxide Level 26 21-32 mmol/L Anion Gap 7.0 3-11 mmol/L Blood Urea Nitrogen 12 7-18 mg/dl Creatinine 0.57 0.60-1.20 mg/dl Est Creatinine Clear Calc Drug Dose 96.3 ml/min Estimated GFR () 119.3 Estimated GFR (Non- 102.9 BUN/Creatinine Ratio 21.8 10-20 Random Glucose 101 70-99 mg/dl Calcium Level 7.9 8.5-10.1 mg/dl
[2017-06-05] MEDS: GABAPENTIN 600MG Q12H DOSE PO SCH (18:30)
[2017-06-06] MEDS: MoRPHine SULFATE 2 MG/ML CARP IV PRN ×3 (01:08→17:40)
[2017-06-06 04:03] VITALS: BP 120/73; PULSE 71; TEMP 37.2; O2SAT 95
[2017-06-06] MEDS: LEVOTHYROXINE 100 MCG TAB PO SCH (05:58)
[2017-06-06 06:02] LABS: MEAN CORPUSCULAR HGB CONC 29.1 g/dl (32-36)
[2017-06-06 06:19] LABS: HEMATOCRIT 30.2 % (37-47); MEAN CELL VOLUME 69.9 fL (80-100); MEAN CORPUSCULAR HEMOGLOBIN 20.4 pg (25-34); RED BLOOD COUNT 4.32 M/uL (4.2-5.4); WHITE BLOOD COUNT 3.85 K/uL (4.8-10.8)
[2017-06-06 06:30] LABS: BASO % 0.3 %; BASO ABS # 0.01 K/uL (0-0.2); COMPLETE YES; EOS % 1.3 %; LYMPH % 25.7 %; LYMPH ABS # 0.99 K/uL (1.2-3.4); MICROCYTOSIS PRESENT; MONO % 13.5 %; NEUT % 59.2 %; OVALOCYTES 1+; PLATELET COUNT 80 K/uL (130-400); PLT ESTIMATE DECREASED
[2017-06-06 07:07] VITALS: BP 125/73; PULSE 70; TEMP 37.3; O2SAT 94
--- NOTE | 2017-06-06 08:02 | Progress Note ---
Internal Med Progress Note Date of Service: Jun 06, 2017. Provider Documentation: SUBJECTIVE: Seen and examined at bedside. States having some pain and minimal bleeding at the perineal region. Denies any chest pain, SOB, melena, blood in stools or hematuria. Offers no other complaints. Hb:8.8 today OBJECTIVE: Vital Signs-as noted below Physical Exam: General Appearance:Moderately built and nourished, no apparent distress Head: normocephalic, Atraumatic Eyes: normal inspection, EOMI, PERRL Neck: supple, Trachea midline Respiratory/Chest: Normal breath sounds, CTA Cardiovascular: S1, S2, No murmur Abdomen/GI:Soft, Non tender, Bowel sounds present Extremities/Musculoskelatal:normal inspection, no edema Neurologic/Psych:AAOX3, grossly no focal neurological deficits Skin: normal color, warm Lab data as noted below. ASSESSMENT & PLAN: Patient is a 57 yr female with a PMH of alcohol abuse, hx. of liver cirrhosis and esophageal varices, pancytopenia, hypothyroidism, depression sent to the ER for severe anemia SEVERE ANEMIA/PANCYTOPENIA Hgb on admission:6.0 S/P 4 units PRBCs S/P EGD on 06/04: Grade II Esophageal Varices: no banding done secondary to large food in stomach Needs repeat EGD along with colonoscopy: likely to be done as outpatient Initially on Protonix and Sandostatin drips Continue PO PPI BID Hb:8.8 today. GI following Monitor CBC Perineal Mass no hemorrhoids, no abscess Appreciate deicer repairer electric input Planned for follow up as outpatient for possible biopsy/removal ETOH abuse last drink was on 06/02 does not admit to a drinking problem, though records indicate early cirrhosis Continue gabapentin withdrawal protocol Continue folic acid, thiamine Hypothyroidism continue Synthroid DVT ppx SCDs Re: pancytopenia CODE STATUS: FULL CODE Disposition: Transfer to medical floor today Plan to discharge tomorrow if Hb stable Vital Signs: Date Time Temp Pulse Resp B/P (MAP) Pulse Ox O2 Delivery O2 Flow Rate FiO2 06/06/17 07:07 37.3 70 17 125/73 (90) 94 Room Air 06/06/17 04:03 37.2 71 18 120/73 (89) 95 Room Air 06/06/17 04:00 Room Air 06/05/17 23:59 Room Air 06/05/17 23:13 37.6 82 18 123/79 (94) 96 Room Air 06/05/17 21:00 37.2 94 16 129/71 97 06/05/17 20:30 37.3 79 16 108/65 97 06/05/17 20:00 Room Air 06/05/17 20:00 37.4 77 16 100/70 96 06/05/17 19:46 37.4 77 18 115/65 98 06/05/17 19:41 37.4 86 18 134/54 97 06/05/17 19:00 37.0 77 24 111/64 (80) 96 Room Air 06/05/17 19:00 37.2 72 18 111/64 97 06/05/17 18:30 89 17 125/66 97 06/05/17 18:08 37.1 78 16 105/71 98 06/05/17 17:41 37.1 87 17 115/73 100 06/05/17 17:24 37.0 77 20 118/68 99 0.0 06/05/17 16:08 Room Air 06/05/17 15:24 36.4 74 18 115/74 (88) 99 Room Air 06/05/17 12:06 37.2 75 19 118/70 (86) 100 Room Air 06/05/17 12:00 Room Air Lab Results: Results Past 24 Hours Test 06/05/17 16:00 06/06/17 05:35 Range/Units Hemoglobin 7.1 8.8 12.0-16.0 g/dL Hematocrit 26.0 30.2 37-47 % White Blood Count 3.85 4.8-10.8 K/uL Red Blood Count 4.32 4.2-5.4 M/uL Mean Corpuscular Volume 69.9 80-100 fL Mean Corpuscular Hemoglobin 20.4 25-34 pg Mean Corpuscular Hemoglobin Concent 29.1 32-36 g/dl Platelet Count 80 130-400 K/uL Neutrophils (%) (Auto) 59.2 % Lymphocytes (%) (Auto) 25.7 % Monocytes (%) (Auto) 13.5 % Eosinophils (%) (Auto) 1.3 % Basophils (%) (Auto) 0.3 % Neutrophils # (Auto) 2.28 1.4-6.5 K/uL Lymphocytes # (Auto) 0.99 1.2-3.4 K/uL Monocytes # (Auto) 0.52 0.11-0.59 K/uL Eosinophils # (Auto) 0.05 0-0.5 K/uL Basophils # (Auto) 0.01 0-0.2 K/uL RDW Standard Deviation 60.7 36.4-46.3 fL RDW Coefficient of Variation 23.6 11.5-14.5 % Immature Granulocyte % (Auto) 0.0 % Immature Granulocyte # (Auto) 0.00 0.00-0.02 K/uL Platelet Estimate DECREASED Microcytosis PRESENT Ovalocytes 1+
[2017-06-06] MEDS ORDERED: MoRPHine SULFATE 2 MG/ML CARP ONE (09:20)
[2017-06-06] MEDS: PANTOprazole SOD 40 MG TAB PO SCH ×2 (09:26→19:29)
[2017-06-06] MEDS: THIAMINE HCL 100 MG TAB PO SCH (09:27)
[2017-06-06] MEDS: POTASSIUM CHLORIDE 20 MEQ TABCR PO SCH (09:27)
[2017-06-06] MEDS: GABAPENTIN 600MG Q12H DOSE PO SCH (09:27)
[2017-06-06] MEDS: FUROSEMIDE 20 MG TAB PO SCH (09:27)
[2017-06-06] MEDS: OXYCODONE/ACETAMINOPHEN 5-325 TAB PO PRN ×3 (09:28→22:36)
[2017-06-06 10:50] VITALS: BP 108/73; PULSE 73; TEMP 36.7; O2SAT 99
[2017-06-06 15:37] VITALS: BP 108/73; PULSE 69; TEMP 36.6; O2SAT 95
[2017-06-06 23:02] VITALS: BP 128/77; PULSE 67; TEMP 36.1; O2SAT 98
[2017-06-07] MEDS: MoRPHine SULFATE 2 MG/ML CARP IV PRN (02:37)
[2017-06-07] MEDS ORDERED: GABAPENTIN 600MG X1 DOSE PO SCH (06:00)
[2017-06-07] MEDS: LEVOTHYROXINE 100 MCG TAB PO SCH (06:16)
[2017-06-07] MEDS: PANTOprazole SOD 40 MG TAB PO SCH (07:33)
[2017-06-07] MEDS: THIAMINE HCL 100 MG TAB PO SCH (07:33)
[2017-06-07] MEDS: FUROSEMIDE 20 MG TAB PO SCH (07:33)
[2017-06-07] MEDS: OXYCODONE/ACETAMINOPHEN 5-325 TAB PO PRN ×2 (07:33→11:44)
[2017-06-07] MEDS: POTASSIUM CHLORIDE 20 MEQ TABCR PO SCH (07:34)
[2017-06-07 07:47] VITALS: BP 122/82; PULSE 66; TEMP 36.6; O2SAT 97
[2017-06-07 07:49] LABS: HEMATOCRIT 30.5 % (37-47); MEAN CELL VOLUME 71.4 fL (80-100); MEAN CORPUSCULAR HEMOGLOBIN 20.8 pg (25-34); MEAN CORPUSCULAR HGB CONC 29.2 g/dl (32-36); PLATELET COUNT 76 K/uL (130-400); RED BLOOD COUNT 4.27 M/uL (4.2-5.4)
[2017-06-07 07:50] LABS: ANISOCYTOSIS PRESENT; COMPLETE YES; GIANT PLATELETS 2+; LYMPH % 27.1 %; LYMPH ABS # 0.84 K/uL (1.2-3.4); MICROCYTOSIS PRESENT; MONO % 11.6 %; NEUT % 61.3 %; OVALOCYTES 1+; PLT ESTIMATE DECREASED
[2017-06-07] MEDS ORDERED: POLYETHYLENE (MIRALAX) 17 GM PACK PO PRN (09:15)
--- NOTE | 2017-06-07 11:48 | Progress Note ---
Internal Med Progress Note Date of Service: Jun 07, 2017. Provider Documentation: SUBJECTIVE: Seen and examined at bedside. States having some soreness of back at site of lesion. Denies any chest pain, SOB, melena, blood in stools or hematuria. Offers no other complaints. Hb:8.9 today OBJECTIVE: Vital Signs-as noted below Physical Exam: General Appearance:Moderately built and nourished, no apparent distress Head: normocephalic, Atraumatic Eyes: normal inspection, EOMI, PERRL Neck: supple, Trachea midline Respiratory/Chest: Normal breath sounds, CTA Cardiovascular: S1, S2, No murmur Abdomen/GI:Soft, Non tender, Bowel sounds present Extremities/Musculoskelatal:normal inspection, no edema Neurologic/Psych:AAOX3, grossly no focal neurological deficits Skin: normal color, warm Lab data as noted below. ASSESSMENT & PLAN: Patient is a 57 yr female with a PMH of alcohol abuse, hx. of liver cirrhosis and esophageal varices, pancytopenia, hypothyroidism, depression sent to the ER for severe anemia SEVERE ANEMIA/PANCYTOPENIA Hgb on admission:6.0 S/P 4 units PRBCs S/P EGD on 06/04: Grade II Esophageal Varices: no banding done secondary to large food in stomach Needs repeat EGD along with colonoscopy: likely to be done as outpatient Initially on Protonix and Sandostatin drips Continue PO PPI BID Hb:8.9 today. Appreciate GI help Hb stable Perineal Mass no hemorrhoids, no abscess Appreciate delinquent account clerk input Planned for follow up as outpatient for possible biopsy/removal ETOH abuse last drink was on 06/02 does not admit to a drinking problem, though records indicate early cirrhosis Continue gabapentin withdrawal protocol Continue folic acid, thiamine Hypothyroidism continue Synthroid DVT ppx SCDs Re: pancytopenia CODE STATUS: FULL CODE Disposition: Plan to discharge home today Follow up with on June 10, 2017 at 2:25pm Follow up with your production control technologist for possible procedure on the lesion as advised Follow up with your yarn examiner skeins for repeat Endoscopy and Colonoscopy as advised Seek immediate medical attention if your symptoms reoccur or worsen Vital Signs: Date Time Temp Pulse Resp B/P (MAP) Pulse Ox O2 Delivery O2 Flow Rate FiO2 06/07/17 08:15 Room Air 06/07/17 07:47 36.6 66 16 122/82 (95) 97 Room Air 06/07/17 00:00 Room Air 06/06/17 23:02 36.1 67 18 128/77 (94) 98 Room Air 06/06/17 16:00 Room Air 06/06/17 15:37 36.6 69 18 108/73 (85) 95 Room Air Lab Results: Results Past 24 Hours Test 06/07/17 06:43 Range/Units White Blood Count 3.10 4.8-10.8 K/uL Red Blood Count 4.27 4.2-5.4 M/uL Hemoglobin 8.9 12.0-16.0 g/dL Hematocrit 30.5 37-47 % Mean Corpuscular Volume 71.4 80-100 fL Mean Corpuscular Hemoglobin 20.8 25-34 pg Mean Corpuscular Hemoglobin Concent 29.2 32-36 g/dl Platelet Count 76 130-400 K/uL Neutrophils (%) (Auto) 61.3 % Lymphocytes (%) (Auto) 27.1 % Monocytes (%) (Auto) 11.6 % Eosinophils (%) (Auto) 0.0 % Basophils (%) (Auto) 0.0 % Neutrophils # (Auto) 1.90 1.4-6.5 K/uL Lymphocytes # (Auto) 0.84 1.2-3.4 K/uL Monocytes # (Auto) 0.36 0.11-0.59 K/uL Eosinophils # (Auto) 0.00 0-0.5 K/uL Basophils # (Auto) 0.00 0-0.2 K/uL RDW Standard Deviation 62.5 36.4-46.3 fL RDW Coefficient of Variation 24.0 11.5-14.5 % Immature Granulocyte % (Auto) 0.0 % Immature Granulocyte # (Auto) 0.00 0.00-0.02 K/uL Platelet Estimate DECREASED Giant Platelets 2+ Anisocytosis PRESENT Microcytosis PRESENT Ovalocytes 1+
[2017-06-07] MEDS ORDERED: OXYC-57 PO (12:00)
[2017-06-07] MEDS ORDERED: THM100 PO (12:00)
[2017-06-07] MEDS ORDERED: PRT40 PO (12:00)
[2017-06-07] MEDS ORDERED: FLV1 PO (12:00)
--- NOTE | 2017-06-07 12:02 | Discharge Summary ---
Discharge Summary Date of Service Jun 07, 2017. Discharge Summary Admission Date: Jun 03, 2017 at 14:50 Discharge Date: Jun 07, 2017 Discharge Disposition: Home Principal Diagnosis: GI bleed, Severe Anemia Procedures: Negative chest. Consultations: GI, OBGYN Pending Studies/Follow-Up: Follow up with on June 10, 2017 at 2:25pm Follow up with your belting inspector for possible procedure on the lesion as advised Follow up with your mop worker for repeat Endoscopy and Colonoscopy as advised Seek immediate medical attention if your symptoms reoccur or worsen Medication Reconciliation New Medications: Folic Acid (Folic Acid) 1 Mg Tab 1 MG PO QAM for 30 Days, #30 TAB Oxycodone/Acetaminophen 5MG/325MG (Percocet 5MG/325MG) Tab 1 TAB PO Q4H PRN for Pain for 2 Days, #6 TAB PAIN Pantoprazole (Pantoprazole Sodium) 40 Mg Tab 40 MG PO BID for 30 Days, #60 TAB 1 Refill Thiamine HCl (Vitamin B-1) 100 Mg Tab 100 MG PO QAM for 30 Days, #30 TAB Continued Medications: Furosemide (Lasix) 20 Mg Tab 1 TAB PO DAILY, #30 TAB 1 Refill Gabapentin (Neurontin) 300 Mg Cap 300 MG PO TID, CAP Levothyroxine Sodium (Levothyroxine Sodium) 100 Mcg Tab 1 TAB PO DAILY Potassium Chloride (Micro-K Ext Rel) 10 Meq Capcr Unknown Dose PO DAILY, CAP Admission Information HPI (per Admitting provider): This is a 57 year old female with a PMH of alcohol abuse, hx. of liver cirrhosis and esophageal varices, pancytopenia, hypothyroidism, depression presents to the ER after being sent by her primary care doctor - she had blood work done as an outpatient and was noted to have severe anemia. She states that she has had weakness/shortness of breath for a few weeks. She mentions that she has had dark stools a month ago, and has also vomiting with blood about two months ago, but nothing unusual since then. Currently denies fevers/chills, chest pain or shortness of breath, no nausea/vomiting/diarrhea. Painful perineal mass - unsure of when this began. Physical Exam (per Admitting): General Appearance: no apparent distress Head: normocephalic, atraumatic Eyes: normal inspection ENT: hearing grossly normal Respiratory/Chest: lungs clear, normal breath sounds, no respiratory distress, no accessory muscle use Cardiovascular: regular rate, rhythm, no edema, no murmur Abdomen/GI: normal bowel sounds, non tender, soft, + pertinent finding (+ perineal mass) Extremities/Musculoskelatal: no calf tenderness, normal capillary refill, no pedal edema Neurologic/Psych: no motor/sensory deficits, alert, normal mood/affect Hospital Course Patient is a 57 yr female with a PMH of alcohol abuse, hx. of liver cirrhosis and esophageal varices, pancytopenia, hypothyroidism, depression sent to the ER for severe anemia SEVERE ANEMIA/PANCYTOPENIA Hgb on admission:6.0 S/P 4 units PRBCs S/P EGD on 06/04: Grade II Esophageal Varices: no banding done secondary to large food in stomach Needs repeat EGD along with colonoscopy: likely to be done as outpatient Initially on Protonix and Sandostatin drips Continue PO PPI BID Hb:8.9 today. Appreciate GI help Hb stable Perineal Mass no hemorrhoids, no abscess Appreciate director physical input Planned for follow up as outpatient for possible biopsy/removal ETOH abuse last drink was on 06/02 does not admit to a drinking problem, though records indicate early cirrhosis Continue gabapentin withdrawal protocol Continue folic acid, thiamine Hypothyroidism continue Synthroid DVT ppx SCDs Re: pancytopenia CODE STATUS: FULL CODE Disposition: Plan to discharge home today Follow up with on June 10, 2017 at 2:25pm Follow up with your belting inspector for possible procedure on the lesion as advised Follow up with your mop worker for repeat Endoscopy and Colonoscopy as advised Seek immediate medical attention if your symptoms reoccur or worsen Total time spent on discharge = 34 minutes This includes examination of the patient, discharge planning, medication reconciliation, and communication with other providers. Discharge Instructions Discharge Instructions Date of Service Jun 07, 2017. Admission Reason for Admission: Gi Bleed, Severe Anemia Discharge Discharge Diagnosis / Problem: GI bleed, Severe Anemia Discharge Goals Goal(s): Decrease discomfort, Improve function Activity Recommendations Activity Limitations: resume your previous activity Exercise/Sports Limitations: as tolerated . Instructions / Follow-Up Instructions / Follow-Up Follow up with on June 10, 2017 at 2:25pm Follow up with your belting inspector for possible procedure on the lesion as advised Follow up with your mop worker for repeat Endoscopy and Colonoscopy as advised Seek immediate medical attention if your symptoms reoccur or worsen Current Hospital Diet Patient's current hospital diet: Regular Diet Discharge Diet Recommended Diet: Regular Diet Procedures Procedures Performed: EGD Pending Studies Studies pending at discharge: no Medical Emergencies . Who to Call and When: Medical Emergencies: If at any time you feel your situation is an emergency, please call 911 immediately. . Non-Emergent Contact Non-Emergency issues call your: Primary Care Provider, Geotechnicial Properties Technician, Card Hanger Call Non-Emergent contact if: you have a fever, your pain is not controlled, your pain is worsening, your pain is unusual for you, you have any medication questions If you have bleeding . . "Provider Documentation" section prepared by Ming Aburto. . VTE Core Measure Inpt VTE Proph given/why not?: SCD's
[2017-06-07 13:00] VITALS: BP 122/82; PULSE 66; TEMP 36.6; O2SAT 97
--- NOTE | 2017-06-09 08:04 | EDITING REQUIRED CODING QUERY ---
CODING QUERY To promote full compliance with coding requirements relating to patient care, provider participation is requested in all cases of jockey's agent uncertainty. Please assist us with the question(s) below: Coding Question(s): Patient admitted with GI bleed and anemia/pancytopenia with underlying alcohol abuse/cirrhosis. EGD done - no stigmata of bleed. Banding of esophageal varices could not be done. Please document, if known, or suspected, the etiology of the GI bleed. Thank you! Kamran Urrutia [facility] Physician's Response(s): GI bleeding likely from esophageal varices Planned for repeat EGD and Colonoscopy as outpatient Principal Diagnosis: "_that condition established after study, to be chiefly responsible for occasioning the admission of the patient to the hospital for care." Co-Existing Principal Diagnosis: "_when two or more diagnoses equally meet the criteria for principal diagnosis as determined by the circumstances of admission, diagnostic work up, and/or therapy provided, and the Alphabetic Index, Tabular List, or another coding guideline does not provide sequencing direction, any one of the diagnoses may be sequenced first." "When the physician has documented what appears to be a current diagnosis in the body of the record, but has not included the diagnosis in the final diagnostic statement, the physician should be asked whether the diagnosis should be added." (Source Coding [facility] 2 QTR90. p3-4)
== END 2017-06-07 14:06 | disposition home or self-care (01) | DRG 432 ==
LOC: C.EDB 11:51 → C.2E 14:50 → ENRESERV 15:10 → CANRESERV 06-06 09:27 → ENRESERV 06-06 09:41 → C.4E 06-06 10:48
PROVIDERS: ADMIT Family Medicine; ATTEND Internal Medicine
PROC: 0DJ08ZZ Inspection of Upper Intestinal Tract, Via Natural or Artificial Opening Endoscopic (ICD-10-PCS; principal; 2017-06-04 08:26)
DX: K70.30 Alcoholic cirrhosis of liver without ascites (principal); I85.11 Secondary esophageal varices with bleeding; K92.2 Gastrointestinal hemorrhage, unspecified; D64.9 Anemia, unspecified; D61.818 Other pancytopenia; N90.9 Noninflammatory disorder of vulva and perineum, unspecified; F10.10 Alcohol abuse, uncomplicated; I10 Essential (primary) hypertension; E03.9 Hypothyroidism, unspecified; F17.200 Nicotine dependence, unspecified, uncomplicated; K64.9 Unspecified hemorrhoids; F32.9 Major depressive disorder, single episode, unspecified

== ENCOUNTER 2017-07-13 11:21 | Emergency (ER) | payer OTHER ==
[~2017-07-13] VITALS: Ht 154.9 cm; Wt 66.0 kg
[~2017-07-13 11:21] MED LIST changes: -AMOX1TAB43 PO; -BND25 PO; -CETI10TA10 PO; +FLV1 PO; +GABA-113 PO; +LEVO100T7 PO; -LEVO150T9 PO; -LXP10 PO; -NRN300 PO; +OXYC-57 PO; +POTA10CA28 PO; +PRT40 PO; +THM100 PO; -ZVRO EXT
[2017-07-13 11:26] VITALS: Ht 154.9 cm; Wt 66.0 kg
[2017-07-13] MEDS ORDERED: LEVO88TA PO (12:27)
[2017-07-13] MEDS ORDERED: FURO-85 PO (12:27)
[2017-07-13] MEDS ORDERED: MoRPHine SULFATE 4 MG/ML 1 ML CARP\\VIAL IV STA (13:21)
[2017-07-13] MEDS ORDERED: SODIUM CHLORIDE 0.9% 1000ML 1,000 ML IV STA (13:21)
[2017-07-13 13:57] LABS: MEAN CORPUSCULAR HGB CONC 29.4 g/dl (32-36)
--- NOTE | 2017-07-13 14:02 | EMERGENCY ROOM VISIT NOTE ---
History First contact with patient: 13:08 Chief Complaint: BLEEDING Stated Complaint: BLEEDING FROM BACK SIDE Nursing Triage Summary: pt had a biopsy done and was told it was cancer pt has discharge and bleeding from that area and was told to follow up with [facility]. pt friend brought her here so she could get a ambulance to take her to [facility] since her friend had her own "emergency" that she could not take her there. History of Present Illness The patient is a 57 year old female who presents to the Emergency Room with complaints of bleeding and pain from biopsy site. Patient states that she had a biopsy taken 2 weeks ago from a growth in her perineal area, between her vaginal opening and her anus. She states the biopsy has confirmed cancer, but she does not know what kind. She is supposed to follow up in [place] for further treatment of her cancer, but states she does not have an appointment scheduled yet. She states for the past 6 days she has noticed some spotting drainage from the growth, yesterday she began having worse pain and this morning she noticed a small amount of blood in her underwear. She states that her girlfriend was concerned and told her she should go to the ER to be checked. She did not speak with her primary doctor or a doctor who did her biopsy regarding the bleeding and pain. She has been taking Percocet for her pain which does help. She denies any fevers, chills, abdominal pain, back pain , vaginal discharge, urinary symptoms. Review of Systems A complete 10 point review of systems was reviewed with the patient with pertinent positives and negatives as per history of present illness. All else were negative. Past Medical/Surgical History Medical Problems: (1) Alcohol abuse (2) Anxiety (3) Benign hypertension (4) GI bleed (5) History of alcohol abuse (6) Hypothyroidism Family History No pertinent family history Social History Smoking Status: Current Every Day Smoker Alcohol Use: heavy Drug Use: none Marital Status: Housing Status: lives with family Occupation Status: unemployed Current/Historical Medications Scheduled Folic Acid (Folic Acid), 1 MG PO QAM Furosemide (Lasix), 20 MG PO DAILY Gabapentin (Neurontin), 300 MG PO TID Levothyroxine Sodium (Synthroid), 88 MCG PO DAILY Pantoprazole (Pantoprazole Sodium), 40 MG PO BID Potassium Chloride (Micro-K Ext Rel), Unknown Dose PO DAILY Thiamine HCl (Vitamin B-1), 100 MG PO QAM Scheduled PRN Oxycodone/Acetaminophen 5MG/325MG (Percocet 5MG/325MG), 1 TAB PO Q4H PRN for Pain Allergies Coded Allergies: Sulfa Antibiotics (Verified Allergy, Intermediate, HIVES, 07/13/17) Physical Exam Vital Signs Date Time Temp Pulse Resp B/P (MAP) Pulse Ox O2 Delivery O2 Flow Rate FiO2 07/13/17 15:06 78 18 154/88 97 07/13/17 13:36 73 16 140/98 97 07/13/17 11:26 36.9 83 16 141/83 96 Room Air Physical Exam CONSTITUTIONAL: No acute distress. Well appearing and well nourished. Alert and oriented X 4 with normal affect. HEENT: Normocephalic, atraumatic. Pupils equal, round and reactive to light, EOMI. TMs normal. Pharynx normal. NECK: Supple, full active range of motion without discomfort. RESPIRATORY: Clear to auscultation bilaterally with no wheezing, crackles, rhonchi or stridor. Equal expansion bilaterally. CARDIOVASCULAR: Regular rate and rhythm with no murmurs, rubs or gallops. Normal peripheral perfusion. No edema. GASTROINTESTINAL: Soft, nontender, nondistended. Bowel sounds present in all quadrants. GENITOURINARY: [] . There is a quarter-sized mass noted on the external perineal area below the vaginal opening, tender to palpation, no active bleeding or drainage noted. MUSCULOSKELETAL: Full range of motion of all joints without discomfort. INTEGUMENTARY: No rash or other significant dermatologic conditions noted. NEUROLOGIC: Cranial nerves II-XII grossly intact. No focal neurologic deficits noted. Medical Decision & Procedures Laboratory Results 07/13/17 13:21 Red Blood Count 4.53, Mean Corpuscular Volume 75.1, Mean Corpuscular Hemoglobin 22.1, Mean Corpuscular Hemoglobin Concent 29.4, Neutrophils (%) (Auto) 59.3, Lymphocytes (%) (Auto) 27.5, Monocytes (%) (Auto) 11.9, Eosinophils (%) (Auto) 1.0, Basophils (%) (Auto) 0.3, Neutrophils # (Auto) 1.75, Lymphocytes # (Auto) 0.81, Monocytes # (Auto) 0.35, Eosinophils # (Auto) 0.03, Basophils # (Auto) 0.01 07/13/17 13:25 Test 07/13/17 13:21 07/13/17 13:25 White Blood Count 2.95 K/uL (4.8-10.8) Red Blood Count 4.53 M/uL (4.2-5.4) Hemoglobin 10.0 g/dL (12.0-16.0) Hematocrit 34.0 % (37-47) Mean Corpuscular Volume 75.1 fL (80-100) Mean Corpuscular Hemoglobin 22.1 pg (25-34) Mean Corpuscular Hemoglobin Concent 29.4 g/dl (32-36) Platelet Count 90 K/uL (130-400) Neutrophils (%) (Auto) 59.3 % Lymphocytes (%) (Auto) 27.5 % Monocytes (%) (Auto) 11.9 % Eosinophils (%) (Auto) 1.0 % Basophils (%) (Auto) 0.3 % Neutrophils # (Auto) 1.75 K/uL (1.4-6.5) Lymphocytes # (Auto) 0.81 K/uL (1.2-3.4) Monocytes # (Auto) 0.35 K/uL (0.11-0.59) Eosinophils # (Auto) 0.03 K/uL (0-0.5) Basophils # (Auto) 0.01 K/uL (0-0.2) RDW Standard Deviation 63.7 fL (36.4-46.3) RDW Coefficient of Variation 23.3 % (11.5-14.5) Immature Granulocyte % (Auto) 0.0 % Immature Granulocyte # (Auto) 0.00 K/uL (0.00-0.02) Platelet Estimate DECREASED Large Platelets 1+ Anion Gap 5.0 mmol/L (3-11) Est Creatinine Clear Calc Drug Dose 66.6 ml/min Estimated GFR () 93.4 Estimated GFR (Non- 80.6 BUN/Creatinine Ratio 7.6 (10-20) Calcium Level 9.0 mg/dl (8.5-10.1) Medications Administered Medications (Trade) Dose Ordered Sig/Robby Route Start Time Stop Time Status Last Admin Dose Admin Sodium Chloride 1,000 ml @ 999 mls/hr Q1H1M STAT IV 07/13/17 13:21 07/13/17 14:21 DC 07/13/17 13:37 999 MLS/HR Morphine Sulfate (MoRPHine SULFATE INJ) 4 mg NOW STAT IV 07/13/17 13:21 07/13/17 13:23 DC 07/13/17 13:37 4 MG Medical Decision CC: Patient presenting with complaint of pain and bleeding from biopsy site Interpretation of Labs: Pancytopenia, slightly improved from baseline, no significant elective abnormalities, normal renal function. Differential Diagnosis: Includes, but not limited to bleeding from biopsy site, infection, anemia, among others. Medication Reconciliation: I attest that I have personally reviewed the patient' s current medication list. Vital signs review: I reviewed the patient's vital signs and interpret them as follows: T: Afebrile; BP: Hypertensive; HR: Within normal limits; RR: Within normal limits; Pulse Ox: Within normal limits on room air. Blood pressure screening: The patient was found to have an elevated blood pressure and was referred to their primary doctor for recheck and further treatment. Summary: Patient was evaluated at bedside, history of physical exam performed. She is alert and in no acute distress. Examination of her perineal mass reveals a tender firm skin tag/mass just below the vaginal opening. No extension into the vagina. No active bleeding or discharge. Nurse was present for vaginal exam. Orders were placed at bedside for labs, UA, IV fluids, IV morphine for pain. Patient discussed with Dr. Humphreys, who agrees with my assessment and plan. Labs reviewed as above, unchanged from baseline, no acute abnormalities. Patient reports improved pain after IV morphine. She was updated on all results and plan for discharge. I encouraged her to follow closely with her PCP and to call regarding her follow -up for her cancer treatment. She verbalized understanding. Patient discharged home in stable condition and ambulatory. Impression Primary Impression: Painful skin lesion Departure Information Dispostion Home / Self-Care Condition GOOD Referrals Self, Referred (PCP) Patient Instructions [facility] [employer] Additional Instructions Follow-up with your PCP for further pain control needs. Call for an appointment. Call to set up an appointment with [facility] for further management regarding your cancer. Continue taking her Percocet as prescribed for pain. You may also take ibuprofen or Aleve as needed for pain. Please return to the emergency Department for severe worsening pain, large amounts of bleeding or other discharge from your wound, foul smelling drainage, fevers or chills, or any other concerns.
[2017-07-13 14:07] LABS: MEAN CELL VOLUME 75.1 fL (80-100); MEAN CORPUSCULAR HEMOGLOBIN 22.1 pg (25-34); RED BLOOD COUNT 4.53 M/uL (4.2-5.4); WHITE BLOOD COUNT 2.95 K/uL (4.8-10.8)
[2017-07-13 14:13] LABS: BUN/CREATININE RATIO 7.6 (10-20); CREATININE 0.81 mg/dl (0.60-1.20); POTASSIUM 3.7 mmol/L (3.5-5.1)
[2017-07-13 14:25] LABS: BASO % 0.3 %; BASO ABS # 0.01 K/uL (0-0.2); COMPLETE YES; LARGE PLATELETS 1+; LYMPH % 27.5 %; LYMPH ABS # 0.81 K/uL (1.2-3.4); MONO % 11.9 %; NEUT % 59.3 %; PLATELET COUNT 90 K/uL (130-400); PLT ESTIMATE DECREASED
[2017-07-13 16:37] VITALS: BP 147/92; PULSE 66; TEMP 36.9; O2SAT 97
== END 2017-07-13 16:38 | disposition home or self-care (01) ==
LOC: C.EDB 11:23
DX: L98.9 Disorder of the skin and subcutaneous tissue, unspecified (principal); F41.9 Anxiety disorder, unspecified; D61.818 Other pancytopenia; I10 Essential (primary) hypertension; E03.9 Hypothyroidism, unspecified; F17.210 Nicotine dependence, cigarettes, uncomplicated; Z79.899 Other long term (current) drug therapy

== ENCOUNTER 2018-02-12 11:22 | Inpatient (IN) | payer OTHER ==
[2018-02-12] VITALS (7 sets, daily range): BP systolic 92–107; BP diastolic 54–72; PULSE 78–85; TEMP 36.9–37.3; O2SAT 96–100; BMI 28.3
[~2018-02-12] VITALS: Ht 154.9 cm; Wt 72.8 kg
[~2018-02-12 11:22] MED LIST changes: +FURO-85 PO; -FURO20TA PO; -LEVO100T7 PO; +LEVO88TA PO
[2018-02-12] MEDS ORDERED: SODIUM CHLORIDE 0.9% 1000ML 1,000 ML IV STA (11:52)
--- NOTE | 2018-02-12 12:07 | EMERGENCY ROOM VISIT NOTE ---
History Report prepared by Ganesh: Devika Wood Under the Supervision of: Dr. Usman Allen M.D. First contact with patient: 11:50 Chief Complaint: DIZZY Stated Complaint: DIZZY,LOW BACK PAIN, FEEL LIKE PASSING OUT Nursing Triage Summary: pt appears pale in triage, c/o lower back pain and dizziness and c/o syncope her PMD told her to come in yesterday pt states she needs blood History of Present Illness The patient is a 57 year old female who presents to the Emergency Room with complaints of constant dizziness beginning five days ago. The patient was sent to the ED by her PCP because she had blood work done yesterday which showed she was anemic. The patient has a history of a GI bleed in 2017 which she was admitted to the hospital for. She reports black and tarry stools beginning five days ago. The patient notes drinking liquor five days ago. The patient has a history of esophageal varices. Source of History: patient Onset: five days ago Position: other (generalized) Quality: other (dizziness) Timing: constant Associated Symptoms: + melena Review of Systems See HPI for pertinent positives & negatives. A total of 10 systems reviewed and were otherwise negative. Past Medical & Surgical Medical Problems: (1) Alcohol abuse (2) Anxiety (3) Benign hypertension (4) GI bleed (5) History of alcohol abuse (6) Hypothyroidism Family History No pertinent family history Social History Smoking Status: Current Every Day Smoker Alcohol Use: heavy Drug Use: none Marital Status: Housing Status: lives with family Occupation Status: unemployed Current/Historical Medications Scheduled Folic Acid (Folic Acid), 1 MG PO QAM Furosemide (Lasix), 20 MG PO DAILY Gabapentin (Neurontin), 300 MG PO TID Levothyroxine Sodium (Synthroid), 88 MCG PO DAILY Potassium Chloride (Micro-K Ext Rel), Unknown Dose PO DAILY Thiamine HCl (Vitamin B-1), 100 MG PO QAM Scheduled PRN Oxycodone/Acetaminophen 5MG/325MG (Percocet 5MG/325MG), 1 TAB PO Q4H PRN for Pain Allergies Coded Allergies: Sulfa Antibiotics (Verified Allergy, Intermediate, HIVES, 07/13/17) Physical Exam Vital Signs Date Time Temp Pulse Resp B/P (MAP) Pulse Ox O2 Delivery O2 Flow Rate FiO2 02/12/18 13:35 85 18 107/76 100 Room Air 3/24/18 13:31 107/76 02/12/18 13:22 80 13 100 02/12/18 13:05 100 Room Air 02/12/18 13:02 127/58 02/12/18 12:52 86 13 100 02/12/18 12:31 112/86 02/12/18 12:22 85 14 98 02/12/18 12:16 100 Room Air 02/12/18 12:16 83 02/12/18 12:14 101/63 02/12/18 11:26 89 16 105/64 100 Room Air Physical Exam GENERAL: Awake, alert, well-appearing, in no acute distress HENT: Normocephalic, atraumatic. Oropharynx unremarkable. EYES: Normal conjunctiva. Sclera non-icteric. NECK: Supple. No nuchal rigidity. FROM. No JVD. RESPIRATORY: Clear to auscultation. CARDIAC: Regular rate, normal rhythm. Extremities warm and well perfused. Pulses equal. ABDOMEN: Soft, non-distended. No tenderness to palpation. No rebound or guarding. No masses. RECTAL: Deferred. MUSCULOSKELETAL: Chest examination reveals no tenderness. The back is symmetrical on inspection without obvious abnormality. There is no CVA tenderness to palpation. No joint edema. LOWER EXTREMITIES: Calves are equal size bilaterally and non-tender. No edema. No discoloration. NEURO: Normal sensorium. No sensory or motor deficits noted. SKIN: No rash or jaundice noted. RECTAL: No masses, brown stool, heme positive. Medical Decision & Procedures Laboratory Results 02/12/18 12:06 Red Blood Count 2.23, Mean Corpuscular Volume 71.3, Mean Corpuscular Hemoglobin 19.3, Mean Corpuscular Hemoglobin Concent 27.0, Mean Platelet Volume 9.2 02/12/18 12:06 Test 02/12/18 12:06 White Blood Count 4.52 K/uL (4.8-10.8) Red Blood Count 2.23 M/uL (4.2-5.4) Hemoglobin 4.3 g/dL (12.0-16.0) Hematocrit 15.9 % (37-47) Mean Corpuscular Volume 71.3 fL (80-100) Mean Corpuscular Hemoglobin 19.3 pg (25-34) Mean Corpuscular Hemoglobin Concent 27.0 g/dl (32-36) Platelet Count 126 K/uL (130-400) Mean Platelet Volume 9.2 fL (7.4-10.4) RDW Standard Deviation 50.8 fL (36.4-46.3) RDW Coefficient of Variation 19.6 % (11.5-14.5) Neutrophils % (Manual) 78.5 % Lymphocytes % (Manual) 17.0 % Monocytes % (Manual) 2.7 % Basophils % (Manual) 1.8 % Neutrophils # (Manual) 3.55 K/uL (1.4-6.5) Total Absolute Neutrophils 3.55 K/uL (1.4-6.5) Lymphocytes # (Manual) 0.77 K/uL (1.2-3.4) Total Absolute Lymphocytes 0.77 K/uL (1.2-3.4) Monocytes # (Manual) 0.12 K/uL (0.11-0.59) Basophils # (Manual) 0.08 K/uL (0-0.2) Giant Platelets 1+ Polychromasia 1+ Hypochromasia PRESENT Microcytosis PRESENT Tear Drop Cells OCCASIONAL Prothrombin Time 13.6 SECONDS (9.0-12.0) Prothromb Time International Ratio 1.3 (0.9-1.1) Activated Partial Thromboplast Time 22.8 SECONDS (21.0-31.0) Partial Thromboplastin Ratio 0.9 Anion Gap 7.0 mmol/L (3-11) Est Creatinine Clear Calc Drug Dose 79.3 ml/min Estimated GFR () 112.0 Estimated GFR (Non- 96.6 BUN/Creatinine Ratio 21.1 (10-20) Calcium Level 8.3 mg/dl (8.5-10.1) Total Bilirubin 0.5 mg/dl (0.2-1) Direct Bilirubin 0.1 mg/dl (0-0.2) Aspartate Amino Transf (AST/SGOT) 23 U/L (15-37) Alanine Aminotransferase (ALT/SGPT) 22 U/L (12-78) Alkaline Phosphatase 99 U/L (45-117) Total Protein 6.6 gm/dl (6.4-8.2) Albumin 2.7 gm/dl (3.4-5.0) Lipase 332 U/L (73-393) Labs reviewed by ED physician. Medications Administered Medications (Trade) Dose Ordered Sig/Robby Route Start Time Stop Time Status Last Admin Dose Admin Sodium Chloride 1,000 ml @ 999 mls/hr Q1H1M STAT IV 02/12/18 11:52 02/12/18 12:52 DC 02/12/18 11:52 999 MLS/HR Pantoprazole Sodium (Protonix IV Bolus/Drip) 1 ea NOW STAT IV 02/12/18 12:26 02/12/18 12:27 DC 02/12/18 12:26 1 EA Octreotide Acetate (Sandostatin Iv Bolus & Drip) 1 ea NOW STAT IV 02/12/18 12:31 02/12/18 12:33 DC 02/12/18 12:31 1 EA Pantoprazole Sodium 80 mg/ Dextrose 120 ml @ 480 mls/hr NOW STAT IV 02/12/18 12:36 02/12/18 12:50 DC 02/12/18 12:57 480 MLS/HR Pantoprazole Sodium 40 mg/ Dextrose 100 ml @ 20 mls/hr Q5H IV 02/12/18 12:50 02/12/18 17:49 DC 02/12/18 12:57 20 MLS/HR Octreotide Acetate 100 mcg/ Syringe 10 ml @ 3 mls/min NOW STAT IV 02/12/18 12:39 02/12/18 12:43 DC 02/12/18 12:56 3 MLS/MIN Octreotide Acetate 500 mcg/ Sodium Chloride 105 ml @ 10 mls/hr [id number] IV 02/12/18 12:43 03/14/18 12:42 02/12/18 12:57 10 MLS/HR ECG Per My Interpretation Indication: weakness Rate (beats per minute): 86 Rhythm: normal sinus Findings: other (ST depression in lateral leads, prolonged QT) ED Course 1151: Past medical records reviewed. The patient was evaluated in room B2. A complete history and physical examination was performed. 1152: Ordered Sodium Chloride 1000 ml @ 999 mls/hr. 1226: Ordered Pantoprazole Sodium 1 ea. IV. 1230: Ordered Pantoprazole Sodium 40 mg/Syringe 10 ml @ 5 mls/min IV. 1231: Ordered Octreotide Acetate 1 ea IV. . 1236: Ordered Pantoprazole Sodium 80 mg/Syringe 120 ml @ 480 mls/min IV. 1239: Octreotide Acetate 100 mcg/Syringe 10 ml @ 3 mls/min. 1243: Octreotide Acetate 500 mcg/Syringe 105 ml @ 10 mls/min. 1250: Ordered Pantoprazole Sodium 40 mg/Syringe 100 ml @ 20 mls/min IV. 1252: I discussed the patient's case with Dr. Dottie Barnnon. 1315: I discussed the patient's case with Dr. John, he has agreed to evaluate the patient for further management and care. Medical Decision Differential diagnosis: Etiologies such as diverticulosis, AVM, coagulopathy, colitis, inflammatory bowel disease, malignancy, Fariba-Rao tear, esophagitis, peptic ulcer disease , variceal bleed, gastritis, epistaxis, fissure, hemorrhoids, as well as others were entertained. This is a 57-year-old known alcoholic with esophageal varices a presents to the emergency department with anemia. Her hemoglobin here is 4. Based on the patient's past medical history she was started on octreotide bolus and drip along with a Protonix bolus and drip. She was typed and crossed for 4 units packed red blood cells. Patient willingly signed the consent and this was placed in the chart. I did discuss the case with both gastroenterology as well as the hospitalist service who agreed to admit the patient. Patient was in agreement with the treatment plan. Medication Reconcilliation Current Medication List: was personally reviewed by me Blood Pressure Screening Patient's blood pressure: Normal blood pressure Consults Time Called: 1243 Consulting Physician: Dr. Dottie Brannon Returned Call: 1252 I discussed the patient's case with Dr. Dottie Brannon. Additional Consults: Time Called: 1255 Consulted Physician: Dr. John Returned Call: 1315 Additional Comments: I discussed the patient's case with Dr. John, he has agreed to evaluate the patient for further management and care. Impression Primary Impression: GI bleed Additional Impression: Anemia Critical Care I have personally spent greater than 30 minutes of critical care time in the direct management of this patient. This includes bedside care, interpretation of diagnostic studies, and testing, discussion with consultants, patient, and family members, and other required patient management activities. This 30 minutes is in excess of all separately billable procedures. Scribe Attestation The scribe's documentation has been prepared under my direction and personally reviewed by me in its entirety. I confirm that the note above accurately reflects all work, treatment, procedures, and medical decision making performed by me. Departure Information Dispostion Being Evaluated By Hospitalist Referrals Self, Referred (PCP) Patient Instructions My [facility] Problem Qualifiers Primary Impression: GI bleed GI bleed type/associated pathology: unspecified gastrointestinal hemorrhage type Qualified Codes: K92.2 - Gastrointestinal hemorrhage, unspecified Additional Impression: Anemia Anemia type: unspecified type Qualified Codes: D64.9 - Anemia, unspecified
[2018-02-12] MEDS ORDERED: PANTOprazole INJ 40 MG in SYRINGE 0 ML IV ONE (12:30)
[2018-02-12] MEDS ORDERED: OCTREOTIDE IV BOLUS & DRIP IV STA ×2 (12:31→13:38)
[2018-02-12] MEDS ORDERED: PANTOprazole INJ 80 MG in DEXTROSE 5% 100ML IV STA (12:36)
[2018-02-12 12:38] LABS: HEMATOCRIT 15.9 % (37-47); HEMOGLOBIN 4.3 g/dL (12.0-16.0); MEAN CELL VOLUME 71.3 fL (80-100); MEAN CORPUSCULAR HEMOGLOBIN 19.3 pg (25-34); MEAN PLATELET VOLUME 9.2 fL (7.4-10.4); PLATELET COUNT 126 K/uL (130-400); RED CELL DISTRIBUTION WIDTH CV 19.6 % (11.5-14.5); RED CELL DISTRIBUTION WIDTH SD 50.8 fL (36.4-46.3); WHITE BLOOD COUNT 4.52 K/uL (4.8-10.8)
[2018-02-12] MEDS ORDERED: OCTREOTIDE ACETATE INJ 100 MCG in SYR 9 ML PHA PREPARED IV STA (12:39)
[2018-02-12 12:41] LABS: INR 1.3 (0.9-1.1); PTT PATIENT 22.8 SECONDS (21.0-31.0)
[2018-02-12 12:47] LABS: ALBUMIN 2.7 gm/dl (3.4-5.0); CALCIUM 8.3 mg/dl (8.5-10.1); CREATININE 0.69 mg/dl (0.60-1.20); POTASSIUM 3.6 mmol/L (3.5-5.1)
[2018-02-12 12:50] LABS: TOTAL PROTEIN 6.6 gm/dl (6.4-8.2)
[2018-02-12] MEDS ORDERED: PANTOprazole INJ 40 MG in DEXTROSE 5% 100ML IV SCH (12:50)
[2018-02-12] MEDS: OCTREOTIDE ACETATE INJ 500 MCG in NSS 100ML IV SCH ×2 (12:57→21:47)
[2018-02-12] MEDS ORDERED: ONDANSETRON INJ 2 MG/ML 2 ML VIAL IV PRN (13:45)
[2018-02-12] MEDS ORDERED: SODIUM CHLORIDE 0.9% 1000ML 1,000 ML IV SCH (15:30)
--- NOTE | 2018-02-12 16:45 | History and Physical ---
History & Physical Date & Time of Service: Feb 12, 2018 at 16:32 Chief Complaint: Anemia, Gi Bleed Primary Care Physician: Nina Abdalla D.O. History of Present Illness Source: patient, clinic records, hospital records This is a 57 year old female with a PMH of alcohol abuse, alcoholic liver cirrhosis and esophageal varices, pancytopenia, hypothyroidism, depression - presents with dark stools for the past week; she states that she made a mistake and had too much to drink about 5 days ago. States that she had a week of dark stools, and the past few days have been normal. She went to see her primary care physician on 02/11, due to worsening generalized weakness, shortness of breath with exertion, and dizziness upon standing. Recommendation was made that the patient come to the ER; she presented to the ER on 02/12 and found to have Hgb of 4.3. Rectal exam performed by ER physician showed brown stools. As per patient, she has not had dark stools in about 4-5 days. Patient currently with no symptoms at rest. Crossing Supervisor internal consultant was notified. Protonix and Octreotide drips started. Type and Crossed Red Blood Cells. Past Medical/Surgical History Medical Problems: (1) Acute chest pain (2) Acute renal failure (3) Alcohol abuse (4) Altered mental status (5) Anemia (6) Anemia (7) Anxiety (8) Benign hypertension (9) Drug overdose (10) Elevated troponin (11) GI (gastrointestinal bleed) (12) GI bleed (13) History of alcohol abuse (14) HTN (hypertension) (15) Hypotension (16) Hypothyroidism (17) Hypoxia (18) Painful skin lesion (19) Pancytopenia (20) Severe anemia (21) Toxic encephalopathy (22) Upper GI bleed (23) Upper GI bleed (24) Vulvar lesion Family History No pertinent family history Social History Smoking Status: Current Every Day Smoker Drug Use: none Marital Status: Occupational Status: unemployed Immunizations History of Influenza Vaccine: No Influenza Vaccine Date: Feb 01, 2012 History of Tetanus Vaccine?: Yes History of Pneumococcal: No History of Hepatitis B Vaccine: Unknown Allergies Coded Allergies: Sulfa Antibiotics (Verified Allergy, Intermediate, HIVES, 07/13/17) Home Medications Scheduled Folic Acid (Folic Acid), 1 MG PO QAM Furosemide (Lasix), 20 MG PO DAILY Gabapentin (Neurontin), 300 MG PO TID Levothyroxine Sodium (Synthroid), 88 MCG PO DAILY Potassium Chloride (Micro-K Ext Rel), Unknown Dose PO DAILY Thiamine HCl (Vitamin B-1), 100 MG PO QAM Scheduled PRN Oxycodone/Acetaminophen 5MG/325MG (Percocet 5MG/325MG), 1 TAB PO Q4H PRN for Pain Review of Systems Constitutional: + weakness, + fatigue, No fever, No chills, No sweats, No weight loss Eyes: No worsening of vision ENT: No hearing loss Respiratory: + dyspnea on exertion, No cough, No sputum, No wheezing, No shortness of breath, No dyspnea at rest, No hemoptysis Cardiovascular: No chest pain, No orthopnea, No edema, No palpitations Abdomen: + GI bleeding (dark stools, now resolved), No pain, No nausea, No vomiting, No diarrhea, No constipation Musculoskeletal: No joint pain, No muscle pain Genitourinary - Female: No dysuria, No urinary frequency, No urinary urgency, No urinary incontinence, No urinary retention, No hematuria Neurologic: + weakness, + vertigo, + balance problems, No memory loss, No paralysis, No numbness/tingling Psychiatric: No depression symptoms, No anxiety, No insomnia Endocrine: No fatigue, No excessive thirst, No excessive urination Hematologic / Lymphatic: + abnormal bleeding/bruising Integumentary: No rash, No itch Allergic / Immunologic: No environmental allergies, No seasonal allergies Physical Exam Vital Signs Date Time Temp Pulse Resp B/P (MAP) Pulse Ox O2 Delivery O2 Flow Rate FiO2 02/12/18 15:00 100 Nasal Cannula 2.0 02/12/18 15:00 36.9 84 13 107/72 (84) 99 Nasal Cannula 2.0 02/12/18 14:30 83 14 109/75 100 02/12/18 14:06 109/75 02/12/18 13:52 83 14 100 02/12/18 13:35 85 18 107/76 100 Room Air 02/12/18 13:31 107/76 02/12/18 13:22 80 13 100 02/12/18 13:05 100 Room Air 02/12/18 13:02 127/58 02/12/18 12:52 86 13 100 02/12/18 12:31 112/86 02/12/18 12:22 85 14 98 02/12/18 12:16 100 Room Air 02/12/18 12:16 83 02/12/18 12:14 101/63 02/12/18 11:26 89 16 105/64 100 Room Air General Appearance: WD/WN, no apparent distress Head: normocephalic, atraumatic Eyes: normal inspection ENT: + pertinent finding (dry mucous membranes) Neck: supple Respiratory/Chest: chest non-tender, lungs clear, normal breath sounds, no respiratory distress, no accessory muscle use Cardiovascular: regular rate, rhythm, no edema, no gallop, no JVD, no murmur, normal peripheral pulses Abdomen/GI: normal bowel sounds, non tender, soft Back: no CVA tenderness, no muscle spasm Extremities/Musculoskelatal: normal inspection, no calf tenderness, normal capillary refill, no pedal edema, normal range of motion Neurologic/Psych: web content editor II-XII nml as tested, no motor/sensory deficits, alert, normal mood/affect, oriented x 3 Skin: normal color Lymphatic: no adenopathy Diagnostics Laboratory Results Results Past 24 Hours Test 02/12/18 12:06 Range/Units White Blood Count 4.52 4.8-10.8 K/uL Red Blood Count 2.23 4.2-5.4 M/uL Hemoglobin 4.3 12.0-16.0 g/dL Hematocrit 15.9 37-47 % Mean Corpuscular Volume 71.3 80-100 fL Mean Corpuscular Hemoglobin 19.3 25-34 pg Mean Corpuscular Hemoglobin Concent 27.0 32-36 g/dl Platelet Count 126 130-400 K/uL Mean Platelet Volume 9.2 7.4-10.4 fL RDW Standard Deviation 50.8 36.4-46.3 fL RDW Coefficient of Variation 19.6 11.5-14.5 % Neutrophils % (Manual) 78.5 % Lymphocytes % (Manual) 17.0 % Monocytes % (Manual) 2.7 % Basophils % (Manual) 1.8 % Neutrophils # (Manual) 3.55 1.4-6.5 K/uL Total Absolute Neutrophils 3.55 1.4-6.5 K/uL Lymphocytes # (Manual) 0.77 1.2-3.4 K/uL Total Absolute Lymphocytes 0.77 1.2-3.4 K/uL Monocytes # (Manual) 0.12 0.11-0.59 K/uL Basophils # (Manual) 0.08 0-0.2 K/uL Giant Platelets 1+ Polychromasia 1+ Hypochromasia PRESENT Microcytosis PRESENT Tear Drop Cells OCCASIONAL Prothrombin Time 13.6 9.0-12.0 SECONDS Prothromb Time International Ratio 1.3 0.9-1.1 Activated Partial Thromboplast Time 22.8 21.0-31.0 SECONDS Partial Thromboplastin Ratio 0.9 Sodium Level 139 136-145 mmol/L Potassium Level 3.6 3.5-5.1 mmol/L Chloride Level 107 98-107 mmol/L Carbon Dioxide Level 24 21-32 mmol/L Anion Gap 7.0 3-11 mmol/L Blood Urea Nitrogen 15 7-18 mg/dl Creatinine 0.69 0.60-1.20 mg/dl Est Creatinine Clear Calc Drug Dose 79.3 ml/min Estimated GFR () 112.0 Estimated GFR (Non- 96.6 BUN/Creatinine Ratio 21.1 10-20 Random Glucose 100 70-99 mg/dl Calcium Level 8.3 8.5-10.1 mg/dl Total Bilirubin 0.5 0.2-1 mg/dl Direct Bilirubin 0.1 0-0.2 mg/dl Aspartate Amino Transf (AST/SGOT) 23 15-37 U/L Alanine Aminotransferase (ALT/SGPT) 22 12-78 U/L Alkaline Phosphatase 99 45-117 U/L Total Protein 6.6 6.4-8.2 gm/dl Albumin 2.7 3.4-5.0 gm/dl Lipase 332 73-393 U/L EKG Normal sinus rhythm Nonspecific ST abnormality Prolonged QT Impression Assessment and Plan This is a 57 year old female with a PMH of alcohol abuse, alcoholic liver cirrhosis and esophageal varices, pancytopenia, hypothyroidism, depression - presents with dark stools for the past week. Upper GI Bleed in the setting of Alcoholic Liver Cirrhosis and Hx. of Esophageal Varices - hx. of esophageal varices, no hematemesis noted; dark stools; now resolved - Hgb down to 4.3, likely slow bleed due to compensation - will transfuse two units pRBCs - PPI and Sandostatin drip - will add Rocephin due to upper GI bleed - NS @ 80mL/hr for now - H/H [id number] - GI consulted for further input - monitor for withdrawal symptoms Pancytopenia - thrombocytopenia and leukopenia - chronic issue - likely secondary to alcoholism Hypothyroidism - continue Synthroid Depression - continue current home medications DVT ppx - SCDs FULL CODE Advanced Directives Existing Living Will: No Existing Power of Knocker Out: No Resuscitation Status VTE Prophylaxis Will order VTE Prophylaxis: Yes Reason for no VTE drug order: Contraindicated
[2018-02-12] MEDS ORDERED: FUROSEMIDE 20 MG TAB PO PRN (18:15)
[2018-02-12] MEDS: PANTOprazole INJ 40 MG in DEXTROSE 5% 100ML IV SCH (18:23)
[2018-02-12] MEDS: CEFTRIAXONE SOD INJ 1 GM in DEXTROSE 5% ADD-VANTAGE 50ML 50 ML IV SCH (18:39)
[2018-02-12] MEDS: GABAPENTIN 300 MG CAP PO SCH (19:44)
[2018-02-12 22:23] LABS: HEMATOCRIT 13.5 % (37-47); HEMOGLOBIN 3.7 g/dL (12.0-16.0)
--- NOTE | 2018-02-12 23:09 | Progress Note ---
Progress Note Date of Service Feb 12, 2018. Progress Note Nurse notified medical doctor that repeat labs trended down from 4.3 to 3.7. Also informed medical doctor that there is a delay as per blood bank in acquiring the 4 units of PRBC that was ordered earlier because patient has multiple antibodies from the type and screen. Called blood bank to confirm that this is situation. Given the delay in the blood product to arrive, and that patient is here for possible GI bleed with worsening anemia and low normotensive blood pressures while on IV fluids, have requested that patient be transferred to ICU for further hemodynamically monitoring from the telemetry floor in case pressors need to be given. Patient seen and examined at bedside. As per nurse there has been no changes in clinical symptoms since originally Hgb 4.3. Patient breathing on room air. She is not in distress. She has 3 peripheral IV sites. On exam, patient has pain of abdomen on palpation which according to the patient is unchanged as before.
[2018-02-13] VITALS (36 sets, daily range): BP systolic 82–130; BP diastolic 47–88; PULSE 71–89; TEMP 36.4–37.5; O2SAT 95–100
[2018-02-13] MEDS: PANTOprazole INJ 40 MG in DEXTROSE 5% 100ML IV SCH ×5 (00:14→19:50)
[2018-02-13] MEDS ORDERED: ICU PROTOCOL FOR HYPERGLYCEMIA PRN (00:30)
[2018-02-13] MEDS ORDERED: LORAZEPAM 2 MG/ML 1 ML VIAL IV PRN (02:45)
--- NOTE | 2018-02-13 03:20 | Critical Care Consultation ---
Critical Care Consultation Date of Consultation: Feb 13, 2018. Attending Physician: García Seo MD Reason for Consultation: 57-year-old female with acute blood loss anemia secondary to likely upper GI bleed from known history of esophageal varices secondary to alcoholic cirrhosis presenting with H&H of 4.3 and 15.9 requiring transfusion that has been delayed secondary to blood blank availability. History of Present Illness Patient is a 57-year-old female with a significant past medical history of alcoholism who has experienced esophageal varices bleed for the past few years. During one episode, she had a critical H&H of 2 and 9. She had subtotally been intubated and flown directly to [facility] for further intervention. Reportedly, the patient states that she has decreased her drinking since. Admittedly, she did go on a cortez this past week, drinking every day. Last week, she noted darkening of her stools. She experienced this up until 2 days ago. Her bowel movements have been brown since. Her most recent bowel movement was this morning which she is adamant was not black. She presented to the emergency department today as she complains of worsening lightheadedness as well as shortness of breath. She was concerned for repeat GI bleed and anemia which prompted her visit today. On arrival in the emergency department, the patient was found to be significantly anemic with an H &H of 4.3 and 15.9. She was typed and crossed for 4 units of blood. Emergency department physician spoke with GI and the patient was admitted under medicine services. The patient underwent repeat H&H at 2200 which demonstrated an H&H of 3.7 and 13.5. At this point, I was contacted by hospitalist service for transfer to the ICU for continued close monitoring. Patient is currently on a Sandostatin drip as well as Protonix drip. She is receiving normal saline at 80 mL/h. Apparently, after type and cross, the patient was found to have a significant amount of antibodies as well as HLA compatibility issues requiring increasing specificity of transfusable blood. This blood sample was sent emergently to the [facility] facility in [facility]. I did speak with the lab and they did not have an ETA for the blood products, however they did know that the labs were currently being processed. I did have the lab contact onset again for an established ETA. In addition, I spoke with my attending physician to discuss possible options if transfusion is not available in the event that the patient has return of bleeding. At this point, we are comfortable excepting the patient to the ICU with the caveat that the patient will undergo emergent transfusion with standard blood products in the event of return bleed. On evaluation in the ICU, the patient is pale appearing. She is pale conjunctiva. She is alert, awake, and oriented. She describes some minimal discomfort in the LEFT upper quadrant. Otherwise, she is resting comfortably. The patient denies any other melanotic or black stools. She has had no hematemesis. She does not follow regularly with a consulting database administrator. She is unaware of any prior reaction while receiving blood products. Patient currently denies any headaches, dizziness, lightheadedness, chest pain, palpitations, shortness of breath, pleuritic pain, nausea, vomiting, hematemesis , hematochezia, melena, hematuria, or dysuria. The patient is a daily smoker. She reports that she is "cut back" on her alcohol intake, but admittedly had a weeklong cortez last week. Past Medical/Surgical History Medical Problems: (1) Alcohol abuse (2) Anxiety (3) Benign hypertension (4) GI bleed (5) History of alcohol abuse (6) Hypothyroidism Family History No pertinent family history noncontributory Social History Smoking Status: Current Every Day Smoker Smokeless Tobacco Use: No Alcohol Use: heavy Drug Use: none Marital Status: Housing Status: lives with family Occupation Status: unemployed Allergies Coded Allergies: Sulfa Antibiotics (Verified Allergy, Intermediate, HIVES, 07/13/17) Home Medications Scheduled Folic Acid (Folic Acid), 1 MG PO QAM Furosemide (Lasix), 20 MG PO DAILY Gabapentin (Neurontin), 300 MG PO TID Levothyroxine Sodium (Synthroid), 88 MCG PO DAILY Potassium Chloride (Micro-K Ext Rel), Unknown Dose PO DAILY Thiamine HCl (Vitamin B-1), 100 MG PO QAM Scheduled PRN Oxycodone/Acetaminophen 5MG/325MG (Percocet 5MG/325MG), 1 TAB PO Q4H PRN for Pain Current Inpatient Medications Current Inpatient Medications Medications (Trade) Dose Ordered Sig/Robby Route Start Time Stop Time Status Last Admin Dose Admin Octreotide Acetate 500 mcg/ Sodium Chloride 105 ml @ 10 mls/hr [id number] IV 02/12/18 12:43 03/14/18 12:42 02/12/18 21:47 10 MLS/HR Ondansetron HCl (Zofran Inj) 4 mg Q6H PRN IV 02/12/18 13:45 03/14/18 13:44 Folic Acid (Folvite Tab) 1 mg QAM PO 02/13/18 09:00 03/15/18 08:59 Gabapentin (Neurontin Cap) 300 mg TID PO 02/12/18 21:00 03/14/18 20:59 02/12/18 19:44 300 MG Levothyroxine Sodium (Synthroid Tab) 88 mcg DAILYBB PO 02/13/18 06:00 03/15/18 05:59 Potassium Chloride (Klor-Con M10) 10 meq DAILY PO 02/13/18 09:00 03/15/18 08:59 Thiamine HCl (Vitamin B-1 Tab) 100 mg QAM PO 02/13/18 09:00 03/15/18 08:59 Ceftriaxone Sodium 1 gm/ Dextrose 50 ml @ 100 mls/hr Q24H IV 02/12/18 18:30 02/14/18 18:29 02/12/18 18:39 100 MLS/HR Furosemide (Lasix Tab) 20 mg ONE PRN PO 02/12/18 18:15 02/13/18 14:30 Nicotine (Nicoderm Cq 14MG Patch) 1 patch QAM TD 02/13/18 09:00 03/15/18 08:59 Miscellaneous (Remove Nicoderm Patch) 1 ea HS N/A 02/12/18 21:00 03/14/18 20:59 Pantoprazole Sodium 40 mg/ Dextrose 100 ml @ 20 mls/hr Q5H IV 02/12/18 18:30 03/14/18 18:29 02/13/18 00:14 20 MLS/HR Miscellaneous Information (Icu Protocol For Hyperglycemia) 1 ea PRN PRN N/A 02/13/18 00:30 02/15/18 00:29 Review of Systems A complete 10-point Review of Systems was discussed with the patient, with pertinent positives and negatives listed in the History of Present Illness. All remaining Review of Systems questions can be considered negative unless otherwise specified. Physical Exam Date Time Temp Pulse Resp B/P (MAP) Pulse Ox O2 Delivery O2 Flow Rate FiO2 02/13/18 02:01 81 13 86/50 (60) 98 02/13/18 01:31 78 12 89/48 (55) 98 02/13/18 01:01 80 13 94/60 (68) 98 02/13/18 00:31 81 16 101/62 (73) 96 02/13/18 00:01 37.3 02/13/18 00:01 80 15 99/59 (63) 100 02/12/18 23:59 96 Room Air 02/12/18 23:36 78 11 92/56 (65) 100 02/12/18 23:22 80 20 101/64 (68) 97 02/12/18 20:00 Room Air 02/12/18 19:07 37.3 85 16 93/54 (67) 100 Room Air 02/12/18 16:00 100 Nasal Cannula 2.0 02/12/18 15:00 100 Nasal Cannula 2.0 02/12/18 15:00 36.9 84 13 107/72 (84) 99 Nasal Cannula 2.0 02/12/18 14:30 83 14 109/75 100 02/12/18 14:06 109/75 02/12/18 13:52 83 14 100 02/12/18 13:35 85 18 107/76 100 Room Air 02/12/18 13:31 107/76 02/12/18 13:22 80 13 100 02/12/18 13:05 100 Room Air 02/12/18 13:02 127/58 02/12/18 12:52 86 13 100 02/12/18 12:31 112/86 02/12/18 12:22 85 14 98 02/12/18 12:16 100 Room Air 02/12/18 12:16 83 02/12/18 12:14 101/63 02/12/18 11:26 89 16 105/64 100 Room Air VITAL SIGNS - Vital signs and nursing notes were reviewed. GENERAL - 57-year-old female appearing her stated age who is in no acute distress. Communicates well with provider and answers questions appropriately. SKIN - Pale appearing. No jaundice. HEAD - NC/AT. EYES - PERRL with EOMI bilaterally. Sclera anicteric. Palpebral conjunctiva pale. EARS - No deformities of external structures noted on gross examination bilaterally. NOSE - Midline and without cyanosis. No epistaxis or purulent drainage noted. MOUTH/OROPHARYNX - Without perioral cyanosis. Buccal mucosa pink and moist and without leukoplakia. LUNGS - Chest wall symmetric without accessory muscle use, intercostals retractions, or central cyanosis. Normal vesicular breath sounds CTA B/L. No wheezes, rales, or rhonchi appreciated. CARDIAC - RRR with S1/S2. No murmur, rubs, or gallops appreciated. ABDOMEN - Abdominal contour obese without pulsations or visible masses. BS normoactive all four quadrants. Mild TTP in the LEFT upper quadrant. No palpable masses, hepatosplenomegaly, or ascites noted. EXTREMITIES - No clubbing or peripheral cyanosis. No pretibial edema present. +3 /5 radial and dorsalis pedis pulses palpated throughout. +5/5 strength noted in UE/LE bilaterally. NEUROLOGIC - Cranial nerves II through XII grossly intact. PSYCH - A&Ox3 and cooperates fully with examiner. Pt is very pleasant and interacts well with examiner. Laboratory Results Last 24 Hours Test 02/12/18 12:06 02/12/18 16:40 02/12/18 22:05 02/13/18 00:13 White Blood Count 4.52 K/uL Red Blood Count 2.23 M/uL Hemoglobin 4.3 g/dL 3.7 g/dL Hematocrit 15.9 % 13.5 % Mean Corpuscular Volume 71.3 fL Mean Corpuscular Hemoglobin 19.3 pg Mean Corpuscular Hemoglobin Concent 27.0 g/dl Platelet Count 126 K/uL Mean Platelet Volume 9.2 fL RDW Standard Deviation 50.8 fL RDW Coefficient of Variation 19.6 % Neutrophils % (Manual) 78.5 % Lymphocytes % (Manual) 17.0 % Monocytes % (Manual) 2.7 % Basophils % (Manual) 1.8 % Neutrophils # (Manual) 3.55 K/uL Total Absolute Neutrophils 3.55 K/uL Lymphocytes # (Manual) 0.77 K/uL Total Absolute Lymphocytes 0.77 K/uL Monocytes # (Manual) 0.12 K/uL Basophils # (Manual) 0.08 K/uL Giant Platelets 1+ Polychromasia 1+ Hypochromasia PRESENT Microcytosis PRESENT Tear Drop Cells OCCASIONAL Prothrombin Time 13.6 SECONDS Prothromb Time International Ratio 1.3 Activated Partial Thromboplast Time 22.8 SECONDS Partial Thromboplastin Ratio 0.9 Sodium Level 139 mmol/L Potassium Level 3.6 mmol/L Chloride Level 107 mmol/L Carbon Dioxide Level 24 mmol/L Anion Gap 7.0 mmol/L Blood Urea Nitrogen 15 mg/dl Creatinine 0.69 mg/dl Est Creatinine Clear Calc Drug Dose 79.3 ml/min Estimated GFR () 112.0 Estimated GFR (Non- 96.6 BUN/Creatinine Ratio 21.1 Random Glucose 100 mg/dl Calcium Level 8.3 mg/dl Total Bilirubin 0.5 mg/dl Direct Bilirubin 0.1 mg/dl Aspartate Amino Transf (AST/SGOT) 23 U/L Alanine Aminotransferase (ALT/SGPT) 22 U/L Alkaline Phosphatase 99 U/L Total Protein 6.6 gm/dl Albumin 2.7 gm/dl Lipase 332 U/L Urine Color YELLOW Urine Appearance CLEAR Urine pH 6.5 Urine Specific [place] 1.007 Urine Protein NEG Urine Glucose (UA) NEG Urine Ketones NEG Urine Occult Blood NEG Urine Nitrite NEG Urine Bilirubin NEG Urine Urobilinogen NEG Urine Leukocyte Esterase NEG Bedside Glucose 123 mg/dl Diagnostic Results Radiological imaging and reports were reviewed by myself. Assessment & Plan (1) Acute blood loss anemia (2) Melanotic stools (3) Symptomatic anemia (4) Cirrhosis, alcoholic (5) History of esophageal varices with bleeding (6) Thrombocytopenia (7) Upper GI bleed (8) Alcohol abuse (9) HTN (hypertension) Reason Critically Ill: 57-year-old female with acute blood loss anemia secondary to likely upper GI bleed from known history of esophageal varices secondary to alcoholic cirrhosis presenting with H&H of 4.3 and 15.9 requiring transfusion that has been delayed secondary to blood blank availability. Neuro - * CAM ICU: NEGATIVE * h/o EtOH Abuse: * Last drink on (02/10). * Describes no significant h/o withdraw s/s. * Will place CIWA protocol. Cardiac - * h/o HTN - hold on Rx w/ current labile BPs. * EKG: NSR at 86bpm w/o ST/T-wave changes, QTc 485ms * Will monitor closely on telemetry for any changes suggestive of hemodynamic compromise 2/2 worsening blood loss anemia. * Monitor on telemetry. * EKGs for any chest pain. Respiratory - * No h/o Pulmonary disease. * Current smoker - encouraged cessation. * Will monitor pulse oximetry for any increasing demand requirements suggesting poor oxygenation - worsening anemia. * Will monitor patient closely s/p administration of PRBCs for delayed reactions (i.e. TACO, TRALI). * Supplemental O2 PRN GI - * Presumed UGIB w/ Melanotic Stools resulting in symptomatic anemia: * ER consulted GI - appreciate guidance. * Protonix gtt * Octreotide gtt * Rocephin for SBP prophylaxis. * Transfuse products as needed. RENAL/LYTES - * No acute electrolyte abnormalities. * Will hold IVF currently at 80mL/hr while patient not receiving blood products to avoid further dilutional anemia. - * Patient refuses Rashid Catheter. Suggested to minimize activity while awaiting PRBCs. * h/o Vulvar Lesion - outpatient followup as scheduled. ENDO - * No h/o DM * Hypothyroidism - Levothyroxine. HEME - * Acute Blood Loss Anemia 2/2 UGIB: * Initially 4.3/15.9 - repeat w/o transfusion 3.7/13.5 * Most likely a component of dilution while receiving IV meds/IVFs. * Will hold maintenance fluids while awaiting blood products. * 4 U PRBCs currently being processed by the [facility] at [place], [place]. * Will plan to transfuse 3 units sequentially prior to recheck of H&H. * Will add 1U FFP in the interim. * Appreciate GI's input for evaluation of source of bleed. * If patient has return of bleed requiring persistent blood products, would have a very low threshold to ship this patient to a tertiary care facility w/ a larger blood bank given the specificity and delay in obtaining blood products for this patient. * Thrombocytopenia: * Currently 126. * Likely 2/2 bone marrow suppression from chronic alcoholism. * Will monitor. Currently no need for Platelets. ID - * No c/o infection at this point. * Agree with Rocephin for SBP coverage. LINES/IV ACCESS - * PIVs x4 in place. DVT PROPHYLAXIS - * Hold on Chemoprophylaxis 2/2 unstable H&H and likely UGIB. * SCDs. I have personally spent 55 minutes of critical care time in the direct management of this patient. This is a life/limb threatening event. This includes time spent evaluating patient, direct bedside care, chart review, placing orders, interpretation of diagnostic studies, discussion with consultants, patient, and family members, as well as other required patient management activities. This time is exclusive of all separately billable procedures, and teaching time and separate from and in addition to any other critical care service time. Thank you for this consultation allow us to be part of this patient's care. Please refer to my attending physician's documentation for any further recommendations. Attending addendum: The patient was seen, examined independently, agreed with assessment and plan of my colleagues at [facility]. The patient was admitted to the hospital with GI bleeding, she is known to have history of alcoholism, history of liver cirrhosis, history of previous esophageal varices with banding, the patient had 2 admissions since October 2017 and 2 institutions in regard of GI bleeding. The patient presented to the hospital with melanotic stools, she denies any hematemesis or hematochezia, she denies any nausea or vomiting, no dizziness no shortness of breath no chest pain or abdominal pain, she did not have any heartburn. The patient is none compliant with her medications. The patient continued to drink and her last drink was 4 days prior to her admission. She never had alcohol withdrawal symptoms according to her. The patient on admission was found to have hematocrit in the range of 13 and due to multiple blood transfusions in the past her blood matching was somewhat cumbersome however she was able to tolerate 4 units of blood matched to her blood group. The patient hematocrit has gone up to 22. As she has been asymptomatic persistently. Vital signs has been stable. Her physical exam revealed a middle-aged female, does not appear to be in any distress, O2 saturation 96% on room air, blood pressure and heart rate has been maintained at 115/79 and 74 respectively. No JVP. Heart examination S1-S2 regular rate and rhythm. Distant breath sounds bilaterally. Abdomen is benign with a slight tenderness mainly in the right upper quadrant, no edema in the periphery. Neurologically she is intact she has no asterixis. No tremor either. Her labs and imaging were reviewed personally. Impression: 1. Recurrence of upper GI bleed likely from esophageal varices, the patient started empirically on Protonix drip and octreotide drip, GI has been consulted. The patient kept n.p.o. for GI intervention. She has adequate IV access. 2. Continue to follow hematocrit periodically, blood transfusions, as needed, I would be conservative with her initial hematocrit dropped down below than 21. Clinically she is asymptomatic. I am not sure when GI bleeding and the drop in hematocrit curve. She is hemodynamically stable. 3. The patient with history of alcoholism, never required medications for alcohol withdrawal according to her. She has been watched for the past 24 hours in the ICU without evidence of alcohol withdrawal symptoms and signs. 4. Liver cirrhosis with esophageal varices status post banding. 5. Due to the presence of a blood in her GI tract, I would change most of her medications to IV form. 6. Awaiting GI input. 7. Case discussed with the staff on rounds and details and with my colleague, critical care time spent with the patient was 45 minutes P Problem Qualifiers (1) Cirrhosis, alcoholic: Ascites presence: unspecified Qualified Codes: K70.30 - Alcoholic cirrhosis of liver without ascites
[2018-02-13] MEDS: LEVOTHYROXINE 88 MCG TAB PO SCH (05:33)
[2018-02-13] MEDS: GABAPENTIN 300 MG CAP PO SCH ×3 (09:00→19:50)
[2018-02-13] MEDS: POTASSIUM CHLORIDE 10 MEQ TABCR PO SCH (09:00)
[2018-02-13] MEDS ORDERED: THIAMINE HCL 100 MG TAB PO SCH (09:00)
[2018-02-13] MEDS: NICOTINE 14 MG/24 HR TDSY TD SCH (09:00)
[2018-02-13] MEDS ORDERED: FUROSEMIDE 20 MG TAB PO SCH (09:00)
[2018-02-13 09:43] LABS: INR 1.3 (0.9-1.1)
[2018-02-13 09:51] LABS: HEMATOCRIT 23.9 % (37-47); HEMOGLOBIN 7.3 g/dL (12.0-16.0); MEAN CELL VOLUME 77.6 fL (80-100); MEAN CORPUSCULAR HEMOGLOBIN 23.7 pg (25-34); MEAN CORPUSCULAR HGB CONC 30.5 g/dl (32-36); MEAN PLATELET VOLUME 9.9 fL (7.4-10.4); PLATELET COUNT 87 K/uL (130-400); RED CELL DISTRIBUTION WIDTH CV 20.3 % (11.5-14.5); RED CELL DISTRIBUTION WIDTH SD 57.6 fL (36.4-46.3); WHITE BLOOD COUNT 4.53 K/uL (4.8-10.8)
[2018-02-13] MEDS: OCTREOTIDE ACETATE INJ 500 MCG in NSS 100ML IV SCH ×2 (09:55→19:50)
--- NOTE | 2018-02-13 09:57 | Progress Note ---
Medicine Progress Note Date & Time of Visit: Feb 13, 2018 at 09:50. Subjective seen resting in bed, comfortable alert, oriented x 3 states she feels ok overall, just tired denies abdominal pain, nausea (+) BMs yesterday 3x, formed, brown, none today no chest pain, dyspnea, palpitations, dizziness no other symptoms Objective Last 8 Hrs Date Time Temp Pulse Resp B/P (MAP) Pulse Ox O2 Delivery O2 Flow Rate FiO2 02/13/18 08:34 37.4 71 16 95/66 (76) 99 Room Air 02/13/18 06:45 37.2 72 14 98/67 98 02/13/18 06:36 37.1 71 14 111/73 98 02/13/18 06:30 37.1 73 13 111/73 97 02/13/18 06:16 72 14 100/75 (82) 98 02/13/18 06:01 85 18 127/88 (93) 99 02/13/18 06:00 36.9 74 14 127/88 98 02/13/18 05:42 36.9 79 14 88/57 98 02/13/18 05:31 78 13 88/57 (65) 99 02/13/18 05:27 37.0 74 12 92/64 98 02/13/18 05:15 37.0 75 13 94/64 97 02/13/18 05:01 75 12 88/55 (63) 100 02/13/18 04:31 73 16 90/55 (59) 100 02/13/18 04:30 37.1 73 15 90/55 100 02/13/18 04:01 71 13 82/49 (54) 99 02/13/18 04:00 37.1 76 12 84/49 97 02/13/18 04:00 97 Room Air 02/13/18 03:47 37.4 80 14 113/67 100 02/13/18 03:46 76 12 113/67 (84) 100 02/13/18 03:31 77 12 95/63 (70) 98 02/13/18 03:01 78 12 84/47 (54) 97 02/13/18 02:31 78 13 89/53 (64) 99 02/13/18 02:01 81 13 86/50 (60) 98 Physical Exam: General- oriented x 3, not in distress, speaks in sentences with no effort Head- atraumatic Eyes- PERRL, EOMI, anicteric ENT- oropharynx clear Neck- supple, no JVD, no adenopathy, no thyromegaly; carotids +2/2 Lungs- clear to auscultation bilaterally Heart- regular rhythm; no murmur, normal rate Abdomen- normal bowel sounds, soft, nontender Extremities- no pretibial edema, no calf tenderness; peripheral pulses intact Neuro- alert, oriented x 3; PERRL, EOMI; no facial palsy; no dysarthria; motor 5 /5 bilaterally; no other gross focal deficit Skin- warm & dry Laboratory Results: Last 24 Hours Test 02/12/18 12:06 02/12/18 16:40 02/12/18 22:05 02/13/18 00:13 White Blood Count 4.52 K/uL Red Blood Count 2.23 M/uL Hemoglobin 4.3 g/dL 3.7 g/dL Hematocrit 15.9 % 13.5 % Mean Corpuscular Volume 71.3 fL Mean Corpuscular Hemoglobin 19.3 pg Mean Corpuscular Hemoglobin Concent 27.0 g/dl Platelet Count 126 K/uL Mean Platelet Volume 9.2 fL RDW Standard Deviation 50.8 fL RDW Coefficient of Variation 19.6 % Neutrophils % (Manual) 78.5 % Lymphocytes % (Manual) 17.0 % Monocytes % (Manual) 2.7 % Basophils % (Manual) 1.8 % Neutrophils # (Manual) 3.55 K/uL Total Absolute Neutrophils 3.55 K/uL Lymphocytes # (Manual) 0.77 K/uL Total Absolute Lymphocytes 0.77 K/uL Monocytes # (Manual) 0.12 K/uL Basophils # (Manual) 0.08 K/uL Giant Platelets 1+ Polychromasia 1+ Hypochromasia PRESENT Microcytosis PRESENT Tear Drop Cells OCCASIONAL Prothrombin Time 13.6 SECONDS Prothromb Time International Ratio 1.3 Activated Partial Thromboplast Time 22.8 SECONDS Partial Thromboplastin Ratio 0.9 Sodium Level 139 mmol/L Potassium Level 3.6 mmol/L Chloride Level 107 mmol/L Carbon Dioxide Level 24 mmol/L Anion Gap 7.0 mmol/L Blood Urea Nitrogen 15 mg/dl Creatinine 0.69 mg/dl Est Creatinine Clear Calc Drug Dose 79.3 ml/min Estimated GFR () 112.0 Estimated GFR (Non- 96.6 BUN/Creatinine Ratio 21.1 Random Glucose 100 mg/dl Calcium Level 8.3 mg/dl Total Bilirubin 0.5 mg/dl Direct Bilirubin 0.1 mg/dl Aspartate Amino Transf (AST/SGOT) 23 U/L Alanine Aminotransferase (ALT/SGPT) 22 U/L Alkaline Phosphatase 99 U/L Total Protein 6.6 gm/dl Albumin 2.7 gm/dl Lipase 332 U/L Urine Color YELLOW Urine Appearance CLEAR Urine pH 6.5 Urine Specific [place] 1.007 Urine Protein NEG Urine Glucose (UA) NEG Urine Ketones NEG Urine Occult Blood NEG Urine Nitrite NEG Urine Bilirubin NEG Urine Urobilinogen NEG Urine Leukocyte Esterase NEG Bedside Glucose 123 mg/dl Test 02/13/18 05:41 02/13/18 09:05 Bedside Glucose 114 mg/dl Prothrombin Time 13.5 SECONDS Prothromb Time International Ratio 1.3 Date/Time Source Procedure Growth Status 02/12/18 23:40 Nasal MRSA DNA Surveillance Screen - Final Specimen Positive for MRSA by DNA Probe Complete Assessment & Plan This is a 57 year old female with a PMH of alcohol abuse, alcoholic liver cirrhosis and esophageal varices, pancytopenia, hypothyroidism, depression - presents with dark stools for the past week. Acute Blood Loss Anemia likely secondary to Upper GI Bleed in the setting of Alcoholic Liver Cirrhosis and Hx. of Esophageal Varices - hx. of esophageal varices, no hematemesis noted; dark stools; now resolved - s/p 3 units PRBC Hg pending - check anemia panel - continue Protonix continue Octreotide - patient reports last drink was last week, has not consumed alcohol in months prior to that Pancytopenia - thrombocytopenia and leukopenia - chronic issue - likely secondary to alcoholism Hypothyroidism - continue Synthroid Depression - continue current home medications DVT ppx - SCDs FULL CODE Disposition pending anticipate d/c home when medically stable Current Inpatient Medications: Current Inpatient Medications Medications (Trade) Dose Ordered Sig/Robby Route Start Time Stop Time Status Last Admin Dose Admin Octreotide Acetate 500 mcg/ Sodium Chloride 105 ml @ 10 mls/hr [id number] IV 02/12/18 12:43 03/14/18 12:42 02/12/18 21:47 10 MLS/HR Ondansetron HCl (Zofran Inj) 4 mg Q6H PRN IV 02/12/18 13:45 4/23/18 13:44 Folic Acid (Folvite Tab) 1 mg QAM PO 02/13/18 09:00 03/15/18 08:59 Gabapentin (Neurontin Cap) 300 mg TID PO 02/12/18 21:00 03/14/18 20:59 02/12/18 19:44 300 MG Levothyroxine Sodium (Synthroid Tab) 88 mcg DAILYBB PO 02/13/18 06:00 03/15/18 05:59 Potassium Chloride (Klor-Con M10) 10 meq DAILY PO 02/13/18 09:00 03/15/18 08:59 Ceftriaxone Sodium 1 gm/ Dextrose 50 ml @ 100 mls/hr Q24H IV 02/12/18 18:30 02/14/18 18:29 02/12/18 18:39 100 MLS/HR Furosemide (Lasix Tab) 20 mg ONE PRN PO 02/12/18 18:15 02/13/18 14:30 Nicotine (Nicoderm Cq 14MG Patch) 1 patch QAM TD 02/13/18 09:00 03/15/18 08:59 Miscellaneous (Remove Nicoderm Patch) 1 ea HS N/A 02/12/18 21:00 03/14/18 20:59 Pantoprazole Sodium 40 mg/ Dextrose 100 ml @ 20 mls/hr Q5H IV 02/12/18 18:30 03/14/18 18:29 02/13/18 04:34 20 MLS/HR Miscellaneous Information (Icu Protocol For Hyperglycemia) 1 ea PRN PRN N/A 02/13/18 00:30 02/15/18 00:29 Lorazepam (Ativan Inj) 1 mg ONE PRN IV 02/13/18 02:45 Thiamine HCl 300 mg/Sodium Chloride 53 ml @ 208 mls/hr QAM IV 02/14/18 09:00 03/16/18 08:59 UNV
[2018-02-13 10:07] LABS: CALCIUM 8.1 mg/dl (8.5-10.1); CREATININE 0.75 mg/dl (0.60-1.20); POTASSIUM 3.8 mmol/L (3.5-5.1)
[2018-02-13] MEDS ORDERED: LIDODERM (LIDOCAINE) PATCH 5% TD ONE (10:15)
[2018-02-13] MEDS: THIAMINE HCL INJ 300 MG in SODIUM CHLORIDE 0.9% 50ML 50 ML IV SCH (10:20)
--- NOTE | 2018-02-13 12:09 | Gastrointestinal Consultation ---
Gastrointestinal Consultation Date of Consultation: Feb 13, 2018 Attending Physician: Dr. Seo Consulting Physician: Dr. Barrera Reason for Consultation: Gi bleed, anemia History of Present Illness Patient is a 57 year old female with a known history of ETOH cirrhosis and known esophageal varices who is still actively drinking ETOH. She presented to the ER after seeing her PCP for worsening fatigue and SOB and found to have a hgb of 4. She notes that about a week prior she had several days of dark tarry stool. THis has since resolved. No nausea or vomiting. Last ETOH reportedly about 4-5 days ago. She had a EGD in May for iron deficiency anemia and cirrhosis. At that time she did have grade 2 varices but banding not done that day because she had a large amount of food in the stomahc. She was supposed to have a repeat EGD as well as a colonoscopy in the following weeks but never followed up. Denies NSAIDs but does have a history of NSAID use in the past. She was started on PPI and octreotide gtt in the ER and has received 3 units of PRBC. Her hgb today is in the 7's. Last BM was formed and brown. Her BUN is not elevated. She is hemodynamically stable. She had a similar presentation in May 2017. Past Medical/Surgical History Medical Problems: (1) Acute blood loss anemia Status: Acute (2) Acute chest pain Status: Acute (3) Anemia Status: Acute (4) Cirrhosis, alcoholic Status: Chronic (5) HTN (hypertension) Status: Chronic (6) Melanotic stools Status: Acute (7) Painful skin lesion Status: Acute (8) Pancytopenia Status: Acute (9) Severe anemia Status: Acute (10) Symptomatic anemia Status: Acute (11) Thrombocytopenia Status: Chronic (12) Upper GI bleed Status: Acute Past Medical History: as noted Past Surgical History: non-contributory Family History No pertinent family history Social History Smoking Status: Current Every Day Smoker Alcohol Use: heavy Drug Use: none Marital Status: Housing Status: lives with family Occupation Status: unemployed Allergies Coded Allergies: Sulfa Antibiotics (Verified Allergy, Intermediate, HIVES, 07/13/17) Current Medications Home Meds and Scripts Medications Dose Route/Sig Max Daily Dose Days Date Category Dose Instructions Lasix (Furosemide) 20 Mg Tab 20 Mg PO DAILY 07/13/17 Reported Synthroid (Levothyroxine Sodium) 88 Mcg Tab 88 Mcg PO DAILY 07/13/17 Reported Vitamin B-1 (Thiamine HCl) 100 Mg Tab 100 Mg PO QAM 30 06/07/17 Rx Folic Acid 1 Mg Tab 1 Mg PO QAM 30 06/07/17 Rx Percocet 5MG/325MG (Oxycodone/Acetaminophen) Tab 1 Tab PO Q4H PRN 2 06/07/17 Rx PAIN Micro-K Ext Rel (Potassium Chloride) 10 Meq Capcr Unknown Dose PO DAILY 06/03/17 Reported Neurontin (Gabapentin) 300 Mg Cap 300 Mg PO TID 06/03/17 Reported Physical Exam Date Time Temp Pulse Resp B/P (MAP) Pulse Ox O2 Delivery O2 Flow Rate FiO2 02/13/18 11:23 37.1 76 18 123/85 98 02/13/18 10:45 37.5 83 18 120/80 98 02/13/18 10:30 37.4 71 20 113/71 97 02/13/18 10:16 37.5 81 18 115/76 98.0 02/13/18 10:00 79 16 98/65 (76) 99 Room Air 02/13/18 08:34 37.4 71 16 95/66 (76) 99 Room Air 02/13/18 08:00 Room Air 02/13/18 06:45 37.2 72 14 98/67 98 02/13/18 06:36 37.1 71 14 111/73 98 02/13/18 06:30 37.1 73 13 111/73 97 02/13/18 06:16 72 14 100/75 (82) 98 02/13/18 06:01 85 18 127/88 (93) 99 02/13/18 06:00 36.9 74 14 127/88 98 02/13/18 05:42 36.9 79 14 88/57 98 02/13/18 05:31 78 13 88/57 (65) 99 02/13/18 05:27 37.0 74 12 92/64 98 02/13/18 05:15 37.0 75 13 94/64 97 02/13/18 05:01 75 12 88/55 (63) 100 02/13/18 04:31 73 16 90/55 (59) 100 02/13/18 04:30 37.1 73 15 90/55 100 02/13/18 04:01 71 13 82/49 (54) 99 02/13/18 04:00 37.1 76 12 84/49 97 02/13/18 04:00 97 Room Air 02/13/18 03:47 37.4 80 14 113/67 100 02/13/18 03:46 76 12 113/67 (84) 100 02/13/18 03:31 77 12 95/63 (70) 98 02/13/18 03:01 78 12 84/47 (54) 97 02/13/18 02:31 78 13 89/53 (64) 99 02/13/18 02:01 81 13 86/50 (60) 98 02/13/18 01:31 78 12 89/48 (55) 98 02/13/18 01:01 80 13 94/60 (68) 98 02/13/18 00:31 81 16 101/62 (73) 96 02/13/18 00:01 37.3 02/13/18 00:01 80 15 99/59 (63) 100 02/12/18 23:59 96 Room Air 02/12/18 23:36 78 11 92/56 (65) 100 02/12/18 23:22 80 20 101/64 (68) 97 02/12/18 20:00 Room Air 02/12/18 19:07 37.3 85 16 93/54 (67) 100 Room Air 02/12/18 16:00 100 Nasal Cannula 2.0 02/12/18 15:00 100 Nasal Cannula 2.0 02/12/18 15:00 36.9 84 13 107/72 (84) 99 Nasal Cannula 2.0 02/12/18 14:30 83 14 109/75 100 02/12/18 14:06 109/75 02/12/18 13:52 83 14 100 02/12/18 13:35 85 18 107/76 100 Room Air 02/12/18 13:31 107/76 02/12/18 13:22 80 13 100 02/12/18 13:05 100 Room Air 02/12/18 13:02 127/58 02/12/18 12:52 86 13 100 02/12/18 12:31 112/86 02/12/18 12:22 85 14 98 02/12/18 12:16 100 Room Air 02/12/18 12:16 83 02/12/18 12:14 101/63 General Appearance: WD/WN, no apparent distress Eyes: normal inspection, PERRL ENT: normal ENT inspection, hearing grossly normal, pharynx normal Neck: supple, no adenopathy, no JVD Respiratory/Chest: chest non-tender, lungs clear, normal breath sounds Cardiovascular: regular rate, rhythm, no edema Abdomen: normal bowel sounds, non tender, soft Extremities: normal range of motion, non-tender Neurologic/Psych: tip puncher II-XII nml as tested, no motor/sensory deficits, alert, normal mood/affect, oriented x 3 Skin: normal color, no jaundice, warm/dry, no rash Laboratory Results Last 24 Hours Test 02/12/18 12:06 02/12/18 16:40 02/12/18 22:05 02/13/18 00:13 White Blood Count 4.52 K/uL Red Blood Count 2.23 M/uL Hemoglobin 4.3 g/dL 3.7 g/dL Hematocrit 15.9 % 13.5 % Mean Corpuscular Volume 71.3 fL Mean Corpuscular Hemoglobin 19.3 pg Mean Corpuscular Hemoglobin Concent 27.0 g/dl Platelet Count 126 K/uL Mean Platelet Volume 9.2 fL RDW Standard Deviation 50.8 fL RDW Coefficient of Variation 19.6 % Neutrophils % (Manual) 78.5 % Lymphocytes % (Manual) 17.0 % Monocytes % (Manual) 2.7 % Basophils % (Manual) 1.8 % Neutrophils # (Manual) 3.55 K/uL Total Absolute Neutrophils 3.55 K/uL Lymphocytes # (Manual) 0.77 K/uL Total Absolute Lymphocytes 0.77 K/uL Monocytes # (Manual) 0.12 K/uL Basophils # (Manual) 0.08 K/uL Giant Platelets 1+ Polychromasia 1+ Hypochromasia PRESENT Microcytosis PRESENT Tear Drop Cells OCCASIONAL Prothrombin Time 13.6 SECONDS Prothromb Time International Ratio 1.3 Activated Partial Thromboplast Time 22.8 SECONDS Partial Thromboplastin Ratio 0.9 Sodium Level 139 mmol/L Potassium Level 3.6 mmol/L Chloride Level 107 mmol/L Carbon Dioxide Level 24 mmol/L Anion Gap 7.0 mmol/L Blood Urea Nitrogen 15 mg/dl Creatinine 0.69 mg/dl Est Creatinine Clear Calc Drug Dose 79.3 ml/min Estimated GFR () 112.0 Estimated GFR (Non- 96.6 BUN/Creatinine Ratio 21.1 Random Glucose 100 mg/dl Calcium Level 8.3 mg/dl Total Bilirubin 0.5 mg/dl Direct Bilirubin 0.1 mg/dl Aspartate Amino Transf (AST/SGOT) 23 U/L Alanine Aminotransferase (ALT/SGPT) 22 U/L Alkaline Phosphatase 99 U/L Total Protein 6.6 gm/dl Albumin 2.7 gm/dl Lipase 332 U/L Urine Color YELLOW Urine Appearance CLEAR Urine pH 6.5 Urine Specific Clarkson 1.007 Urine Protein NEG Urine Glucose (UA) NEG Urine Ketones NEG Urine Occult Blood NEG Urine Nitrite NEG Urine Bilirubin NEG Urine Urobilinogen NEG Urine Leukocyte Esterase NEG Bedside Glucose 123 mg/dl Test 02/13/18 05:41 02/13/18 09:05 02/13/18 09:57 Bedside Glucose 114 mg/dl White Blood Count 4.53 K/uL Red Blood Count 3.08 M/uL Hemoglobin 7.3 g/dL Hematocrit 23.9 % Mean Corpuscular Volume 77.6 fL Mean Corpuscular Hemoglobin 23.7 pg Mean Corpuscular Hemoglobin Concent 30.5 g/dl RDW Standard Deviation 57.6 fL RDW Coefficient of Variation 20.3 % Platelet Count 87 K/uL Mean Platelet Volume 9.9 fL Platelet Estimate DECREASED Prothrombin Time 13.5 SECONDS Prothromb Time International Ratio 1.3 Sodium Level 139 mmol/L Potassium Level 3.8 mmol/L Chloride Level 111 mmol/L Carbon Dioxide Level 21 mmol/L Anion Gap 7.0 mmol/L Blood Urea Nitrogen 12 mg/dl Creatinine 0.75 mg/dl Est Creatinine Clear Calc Drug Dose 73.1 ml/min Estimated GFR () 102.6 Estimated GFR (Non- 88.5 BUN/Creatinine Ratio 16.2 Random Glucose 110 mg/dl Calcium Level 8.1 mg/dl Magnesium Level 1.8 mg/dl Transferrin % Saturation % Impression Patient is a 57 year old female with ETOH cirrhosis and a history of chronic anemia as well as esophageal varices and a MW tear admitted with hgb of 4 and a history of several days of melena (has since resolved). Interestingly, her BUN is not elevated. Suspect she bled and it has since stopped. She needs both an EGD and a colonoscopy. More importantly, she needs formal ETOH rehab. Plan - Continue the octreotide and PPI gtt, though labs not suggestive of acute or ongoing bleeding. - Follow H/H. - Clear liquid diet today. - Start prep for colonoscopy - 4 dulcolax now now. Miralax 7 packets in 32 oz gatorade at 3 PM today. Repeat 7 packets in 32 oz gatorade at 3AM tonight. - EGD and colonoscopy tomorrow. - ETOH counseling.
[2018-02-13 14:14] LABS: HEMOGLOBIN 8.6 g/dL (12.0-16.0)
[2018-02-13] MEDS: CEFTRIAXONE SOD INJ 1 GM in DEXTROSE 5% ADD-VANTAGE 50ML 50 ML IV SCH (18:11)
[2018-02-14] MEDS: SODIUM CHLORIDE 0.9% 1000ML 1,000 ML IV SCH ×2 (00:23→13:24)
[2018-02-14] MEDS: PANTOprazole INJ 40 MG in DEXTROSE 5% 100ML IV SCH ×5 (00:23→23:19)
--- NOTE | 2018-02-14 02:05 | Progress Note ---
Post ICU Progress Note Date & Time Feb 14, 2018 at 01:36 Vital Signs Vital Signs Past 12 Hours Date Time Temp Pulse Resp B/P (MAP) Pulse Ox O2 Delivery O2 Flow Rate FiO2 02/14/18 00:08 Room Air 02/13/18 23:59 36.4 76 18 104/72 (83) 98 02/13/18 20:01 Room Air 02/13/18 19:15 36.8 71 22 127/81 (96) 99 Room Air 02/13/18 16:00 37.1 76 16 130/87 (101) 97 Room Air 02/13/18 16:00 Room Air 02/13/18 14:00 75 16 123/87 (99) 95 Room Air Notes Mental Status: see Notes Nausea / Vomiting: adequately controlled Pain: adequately controlled Airway Patency, RR, SpO2: stable & adequate BP & HR: stable & adequate Patient is a 57-year-old female with a significant past medical history of alcoholic cirrhosis with previous upper GI bleeds from esophageal varices resulting in massive transfusions. She was admitted 2 days ago through the emergency department with an H&H of 4.3 and 15.9, respectively she had a repeat lab draw with some delusional changes of an H&H of 3.7 and 13.5. The patient was subsequently transferred to the ICU for close monitoring as there were no available blood products for the patient secondary to altered when compared abilities with her blood. Eventually, we are able to obtain 4 units of O+ blood for transfusion. At that point, we did have the patient transfused with 3 subsequent units followed by a repeat H&H which had climbed to 7.3 and 23.9, respectively. The additional fourth unit was provided. Her repeat H&H was 8.6 and 27.0. She had been evaluated by GI. Plans for upper endoscopy as well as colonoscopy were arranged. On review of patient's record today, the patient has not had an H&H performed since 1400 yesterday. There are no orders for repeat labs present. I did contact the on-call overnight provider who informed me that, apparently, they had held off on repeat labs as the patient had stabilized with transfusion, and there were no further blood products to be provided for the patient at this time. Apparently, the closest match for the patient's blood products is out of a [place] branch in [place]. They will be unable to contact this group until this morning at 8 AM. Because of this, it was decided to refrain from further phlebotomy until blood products are readily available. I did confirm this with the lab. On evaluation, the patient is resting comfortably. She is sleeping. On review of vital signs, she remains hemodynamically stable. She remains on Protonix and octreotide drips. She is currently prepping for colonoscopy as well as upper endoscopy procedures. Consider outpatient follow up in 1 to 2 weeks with: GI, PCP, Substance Abuse Counseling Repeat imaging needed: None at this time. Follow up cultures: None Reviewed progress notes, labs, and inpatient medication list Continue current management Additional recommendations: At this point, given the complexity of the patient' s blood type and issues with previous history of need for massive transfusions with upper GI bleeding, I would have low threshold to transfer this patient in the event that A) she begins to bleed abruptly or B) we are unable to obtain blood products within a relatively appropriate timeframe. She has had prior transfusions performed at [facility] during previous episodes of UGIB. [facility] would likely be most appropriate as their blood supply is independent from where we currently source from. Additionally, while recognizing the need to minimize phlebotomy, it may be prudent to evaluate an H&H alone to assess responsiveness to transfusion therapy. Additional options for minimization of blood losses during lab draws could be placement of PICC line with use of inline Safe Set device which eliminates wasting during blood draws. Thank you for allowing us to participate in the care of this patient. At this time, Critical Care Services will sign off on this case. Please feel free to reconsult as needed. Consults & Procedures Consultants: GI
[2018-02-14 02:55] VITALS: BP 113/75; PULSE 73; TEMP 37.2; O2SAT 96
[2018-02-14] MEDS: OCTREOTIDE ACETATE INJ 500 MCG in NSS 100ML IV SCH ×2 (05:40→17:02)
[2018-02-14] MEDS: LEVOTHYROXINE 88 MCG TAB PO SCH (05:40)
[2018-02-14 07:05] VITALS: BP 122/76; PULSE 73; TEMP 36.7; O2SAT 96
[2018-02-14] MEDS: THIAMINE HCL INJ 300 MG in SODIUM CHLORIDE 0.9% 50ML 50 ML IV SCH (08:14)
[2018-02-14] MEDS: LIDODERM (LIDOCAINE) PATCH 5% TD SCH (08:15)
[2018-02-14] MEDS: NICOTINE 14 MG/24 HR TDSY TD SCH (08:34)
[2018-02-14] MEDS ORDERED: MoRPHine SULFATE 2 MG/ML CARP IV STA ×2 (08:46→12:08)
[2018-02-14 08:59] LABS: MEAN CORPUSCULAR HGB CONC 31.5 g/dl (32-36)
[2018-02-14 09:13] LABS: HEMOGLOBIN 8.5 g/dL (12.0-16.0); MEAN CELL VOLUME 77.6 fL (80-100); MEAN CORPUSCULAR HEMOGLOBIN 24.4 pg (25-34); RED CELL DISTRIBUTION WIDTH CV 19.5 % (11.5-14.5); WHITE BLOOD COUNT 2.91 K/uL (4.8-10.8)
[2018-02-14 09:14] LABS: CREATININE 0.84 mg/dl (0.60-1.20); POTASSIUM 3.7 mmol/L (3.5-5.1)
[2018-02-14 09:31] LABS: MEAN PLATELET VOLUME 9.1 fL (7.4-10.4); PLATELET COUNT 77 K/uL (130-400)
[2018-02-14 09:32] LABS: BASO % 0.7 %; BASO ABS # 0.02 K/uL (0-0.2); IG# 0.01 K/uL (0.00-0.02); LYMPH % 24.4 %; LYMPH ABS # 0.71 K/uL (1.2-3.4); MONO % 10.3 %; NEUT % 64.3 %; NEUT ABS # 1.87 K/uL (1.4-6.5)
--- NOTE | 2018-02-14 10:02 | Progress Note ---
Medicine Progress Note Date & Time of Visit: Feb 14, 2018 at 09:54. Subjective Seen sitting up in bed comfortable No GI bleed overnight Denies abdominal pain nausea No chest pain shortness of breath dizziness reporting low back pain which is chronic but has been past few days after working last week Denies other symptoms Objective Last 8 Hrs Date Time Temp Pulse Resp B/P (MAP) Pulse Ox O2 Delivery O2 Flow Rate FiO2 02/14/18 09:38 36.9 79 20 132/87 (102) 96 Room Air 02/14/18 07:05 36.7 73 18 122/76 (91) 96 Room Air 02/14/18 04:06 Room Air 02/14/18 02:55 37.2 73 16 113/75 (88) 96 Physical Exam: General- oriented x 3, not in distress, speaks in sentences with no effort Eyes-anicteric ENT- oropharynx clear Neck- supple, no JVD Lungs- clear breath sounds bilaterally Heart- regular rhythm; no murmur, normal rate Abdomen- normal bowel sounds, nondistended soft, nontender Extremities- no pretibial edema, no calf tenderness; peripheral pulses intact Neuro- alert, oriented x 3; no gross focal motor or sensory deficits Skin- warm & dry Laboratory Results: Last 24 Hours Test 02/13/18 11:39 02/13/18 14:02 02/14/18 05:34 Bedside Glucose 124 mg/dl Hemoglobin 8.6 g/dL 8.5 g/dL Hematocrit 27.0 % 27.0 % Iron Level 192 mcg/dl Total Iron Binding Capacity 447 mcg/dl Transferrin 342 mg/dl Transferrin % Saturation 40 % Ferritin 6.2 ng/ml White Blood Count 2.91 K/uL Red Blood Count 3.48 M/uL Mean Corpuscular Volume 77.6 fL Mean Corpuscular Hemoglobin 24.4 pg Mean Corpuscular Hemoglobin Concent 31.5 g/dl Platelet Count 77 K/uL Mean Platelet Volume 9.1 fL Neutrophils (%) (Auto) 64.3 % Lymphocytes (%) (Auto) 24.4 % Monocytes (%) (Auto) 10.3 % Eosinophils (%) (Auto) 0.0 % Basophils (%) (Auto) 0.7 % Neutrophils # (Auto) 1.87 K/uL Lymphocytes # (Auto) 0.71 K/uL Monocytes # (Auto) 0.30 K/uL Eosinophils # (Auto) 0.00 K/uL Basophils # (Auto) 0.02 K/uL RDW Standard Deviation 55.0 fL RDW Coefficient of Variation 19.5 % Immature Granulocyte % (Auto) 0.3 % Immature Granulocyte # (Auto) 0.01 K/uL Platelet Estimate DECREASED Giant Platelets 2+ Polychromasia 1+ Hypochromasia PRESENT Anisocytosis PRESENT Sodium Level 142 mmol/L Potassium Level 3.7 mmol/L Chloride Level 112 mmol/L Carbon Dioxide Level 23 mmol/L Anion Gap 8.0 mmol/L Blood Urea Nitrogen 10 mg/dl Creatinine 0.84 mg/dl Est Creatinine Clear Calc Drug Dose 66.4 ml/min Estimated GFR () 89.4 Estimated GFR (Non- 77.2 BUN/Creatinine Ratio 11.6 Random Glucose 111 mg/dl Calcium Level 8.0 mg/dl Vitamin B12 Level 531 pg/mL Folate 9.47 ng/mL Assessment & Plan This is a 57 year old female with a PMH of alcohol abuse, alcoholic liver cirrhosis and esophageal varices, pancytopenia, hypothyroidism, depression - presents with dark stools for the past week. Acute Blood Loss Anemia likely secondary to Upper GI Bleed in the setting of Alcoholic Liver Cirrhosis and Hx. of Esophageal Varices - hx. 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 intake resumed will suggest tramadol Try to avoid narcotics because of patient's history of alcoholism Pancytopenia - thrombocytopenia and leukopenia - chronic issue - likely secondary to alcoholism Hypothyroidism - continue Synthroid Depression - continue current home medications DVT ppx - SCDs FULL CODE Disposition pending anticipate d/c home when medically stable and cleared by GI Current Inpatient Medications: Current Inpatient Medications Medications (Trade) Dose Ordered Sig/Robby Route Start Time Stop Time Status Last Admin Dose Admin Octreotide Acetate 500 mcg/ Sodium Chloride 105 ml @ 10 mls/hr [id number] IV 02/12/18 12:43 03/14/18 12:42 02/14/18 05:40 10 MLS/HR Ondansetron HCl (Zofran Inj) 4 mg Q6H PRN IV 02/12/18 13:45 03/14/18 13:44 Folic Acid (Folvite Tab) 1 mg QAM PO 02/13/18 09:00 03/15/18 08:59 Gabapentin (Neurontin Cap) 300 mg TID PO 02/12/18 21:00 03/14/18 20:59 02/13/18 19:50 300 MG Levothyroxine Sodium (Synthroid Tab) 88 mcg DAILYBB PO 02/13/18 06:00 03/15/18 05:59 02/14/18 05:40 88 MCG Potassium Chloride (Klor-Con M10) 10 meq DAILY PO 02/13/18 09:00 03/15/18 08:59 Ceftriaxone Sodium 1 gm/ Dextrose 50 ml @ 100 mls/hr Q24H IV 02/12/18 18:30 02/14/18 18:29 02/13/18 18:11 100 MLS/HR Nicotine (Nicoderm Cq 14MG Patch) 1 patch QAM TD 02/13/18 09:00 03/15/18 08:59 Miscellaneous (Remove Nicoderm Patch) 1 ea HS N/A 02/12/18 21:00 03/14/18 20:59 Pantoprazole Sodium 40 mg/ Dextrose 100 ml @ 20 mls/hr Q5H IV 02/12/18 18:30 03/14/18 18:29 02/14/18 05:40 20 MLS/HR Miscellaneous Information (Icu Protocol For Hyperglycemia) 1 ea PRN PRN N/A 02/13/18 00:30 02/15/18 00:29 Thiamine HCl 300 mg/Sodium Chloride 53 ml @ 208 mls/hr QAM IV 02/13/18 11:00 03/15/18 10:59 02/14/18 08:14 208 MLS/HR Lidocaine (Lidoderm Patch 5%) 1 patch QAM TD 02/14/18 09:00 03/16/18 08:59 02/14/18 08:15 1 PATCH Miscellaneous (Remove Lidoderm Patch) 1 ea DAILY@21 N/A 02/13/18 22:00 03/15/18 21:59 Sodium Chloride 1,000 ml @ 75 mls/hr [id number] IV 02/14/18 00:00 03/16/18 00:00 02/14/18 00:23 75 MLS/HR
--- NOTE | 2018-02-14 10:05 | Endo History and Physical ---
History & Physical Date of Service: Feb 14, 2018. Chief Complaint: Referring Physician: History of Present Illness Alcoholic liver cirrhosis with Hx of melena and has anemia which improved with transfusion. Past Medical History Anxiety, Thyroid Disease, Liver Disease, Other Past Surgical History Hx Cardiac Surgery: No Hx Abdominal Surgery: Yes (C-SECTIONS) Hx Post-Op Nausea and Vomiting: No Hx Cancer Surgery: No Hx Thoracic Surgery: No Hx Orthopedic: No Hx Urinary Tract Surgery: No Social History Smoking Status: Current Every Day Smoker Smokeless Tobacco Use: No Hx Substance Use: No Hx Alcohol Use: Yes (1-2 beers daily) Allergies Coded Allergies: Sulfa Antibiotics (Verified Allergy, Intermediate, HIVES, 07/13/17) Current Medications Reported Home Medications Medications Dose Route/Sig Max Daily Dose Days Date Category Dose Instructions Lasix (Furosemide) 20 Mg Tab 20 Mg PO DAILY 07/13/17 Reported Synthroid (Levothyroxine Sodium) 88 Mcg Tab 88 Mcg PO DAILY 07/13/17 Reported Vitamin B-1 (Thiamine HCl) 100 Mg Tab 100 Mg PO QAM 30 06/07/17 Rx Folic Acid 1 Mg Tab 1 Mg PO QAM 30 06/07/17 Rx Percocet 5MG/325MG (Oxycodone/Acetaminophen) Tab 1 Tab PO Q4H PRN 2 06/07/17 Rx PAIN Micro-K Ext Rel (Potassium Chloride) 10 Meq Capcr Unknown Dose PO DAILY 06/03/17 Reported Neurontin (Gabapentin) 300 Mg Cap 300 Mg PO TID 06/03/17 Reported Vital Signs Weight (Kilograms): 70.600 Height (Feet): 5 Height (Inches): 1.00 Date Time Temp Pulse Resp B/P (MAP) Pulse Ox O2 Delivery O2 Flow Rate FiO2 02/14/18 09:38 36.9 79 20 132/87 (102) 96 Room Air 02/14/18 07:05 36.7 73 18 122/76 (91) 96 Room Air 02/14/18 04:06 Room Air 02/14/18 02:55 37.2 73 16 113/75 (88) 96 02/14/18 00:08 Room Air 02/13/18 23:59 36.4 76 18 104/72 (83) 98 02/13/18 20:01 Room Air 02/13/18 19:15 36.8 71 22 127/81 (96) 99 Room Air 02/13/18 16:00 37.1 76 16 130/87 (101) 97 Room Air 02/13/18 16:00 Room Air 02/13/18 14:00 75 16 123/87 (99) 95 Room Air 02/13/18 12:00 Room Air 02/13/18 12:00 37.1 89 16 106/72 (83) 97 Room Air 02/13/18 11:23 37.1 76 18 123/85 98 02/13/18 10:45 37.5 83 18 120/80 98 02/13/18 10:30 37.4 71 20 113/71 97 02/13/18 10:16 37.5 81 18 115/76 98.0 Physical Exam General Appearance: no apparent distress Respiratory/Chest: Auscultation: breath sounds normal Cardiovascular: Heart Auscultation: RRR Abdomen: Inspection & Palpation: non-distended Liver: non-tender Assessment and Plan Stable for EGD
[2018-02-14] MEDS ORDERED: MIDAZOLAM HCL 1 MG/ML 2ML VIAL ONE (10:07)
[2018-02-14] MEDS ORDERED: PROPOFOL IV EMULSION 10 MG/ML 20 ML VIAL IV ONE (10:19)
[2018-02-14] MEDS ORDERED: LIDOCAINE HCL 2% 2 ML VIAL (20MG/ML) ONE (10:19)
--- NOTE | 2018-02-14 10:27 | GI REPORT ---
Procedure Date: 02/14/2018 9:53 AM Procedure: Upper GI endoscopy Indications: Anemia Medicines: Monitored Anesthesia Care Complications: No immediate complications. Estimated Blood Loss: Estimated blood loss: none. Procedure: Pre-Anesthesia Assessment: - Prior to the procedure, a History and Physical was performed, and patient medications and allergies were reviewed. The patient is competent. The risks and benefits of the procedure and the sedation options and risks were discussed with the patient. All questions were answered and informed consent was obtained. Patient identification and proposed procedure were verified by the physician and the nurse in the procedure room. Mental Status Examination: alert and oriented. Airway Examination: normal oropharyngeal airway and neck mobility. Respiratory Examination: clear to auscultation. CV Examination: normal. ASA Grade Assessment: III - A patient with severe systemic disease. After reviewing the risks and benefits, the patient was deemed in satisfactory condition to undergo the procedure. The anesthesia plan was to use monitored anesthesia care (MAC). Immediately prior to administration of medications, the patient was re-assessed for adequacy to receive sedatives. The heart rate, respiratory rate, oxygen saturations, blood pressure, adequacy of pulmonary ventilation, and response to care were monitored throughout the procedure. The physical status of the patient was re-assessed after the procedure. After obtaining informed consent, the endoscope was passed under direct vision. Throughout the procedure, the patient's blood pressure, pulse, and oxygen saturations were monitored continuously. The scope was introduced through the mouth, and advanced to the second part of duodenum. The upper GI endoscopy was accomplished without difficulty. The patient tolerated the procedure well. Findings: Grade I, small varices were found in the lower third of the esophagus which flattens with air insuffilation. No red bal sign or stigmata of recent bleed. The entire examined stomach was normal. The duodenal bulb and second portion of the duodenum were normal. Impression: - Grade I, non-bleeding esophageal varices. No red bal sign or stigmata of recent bleed. - Normal stomach. Bile noted. No blood. - Normal duodenal bulb and second portion of the duodenum. - No specimens collected. Recommendation: - Return patient to [facility] for ongoing care. - Repeat upper endoscopy in 1 year for surveillance. Consider BB if no contraindications. - Perform a colonoscopy tomorrow. Ester Calixto MD 02/14/2018 10:27:22 AM This report has been signed electronically. Note Initiated On: 02/14/2018 9:53 AM I attest to the content of the Intraoperative Record and orders documented therein, exceptions below
--- NOTE | 2018-02-14 10:37 | Anesthesiology Progress Note ---
Anesthesia Post Op Note Date & Time Feb 14, 2018 at 10:37 Vital Signs Pain Intensity: 0 Vital Signs Past 12 Hours Date Time Temp Pulse Resp B/P (MAP) Pulse Ox O2 Delivery O2 Flow Rate FiO2 02/14/18 10:21 77 16 108/81 (90) 98 Room Air 98.0 02/14/18 09:38 36.9 79 20 132/87 (102) 96 Room Air 02/14/18 07:05 36.7 73 18 122/76 (91) 96 Room Air 02/14/18 04:06 Room Air 02/14/18 02:55 37.2 73 16 113/75 (88) 96 02/14/18 00:08 Room Air 02/13/18 23:59 36.4 76 18 104/72 (83) 98 Notes Mental Status: alert / awake / arousable, participated in evaluation Pt Amnestic to Procedure: Yes Nausea / Vomiting: adequately controlled Pain: adequately controlled Airway Patency, RR, SpO2: stable & adequate BP & HR: stable & adequate Hydration State: stable & adequate Anesthetic Complications: no major complications apparent
[2018-02-14 12:00] VITALS: BP 127/86; PULSE 65; TEMP 36.9; O2SAT 7
[2018-02-14] MEDS ORDERED: NURSING VERBAL MED ORDER ONE (12:00)
[2018-02-14] MEDS: GABAPENTIN 300 MG CAP PO SCH ×3 (12:09→20:17)
[2018-02-14] MEDS: POTASSIUM CHLORIDE 10 MEQ TABCR PO SCH (12:11)
[2018-02-14 15:38] VITALS: BP 110/77; PULSE 81; TEMP 36.7; O2SAT 99
--- NOTE | 2018-02-14 16:40 | Gastroenterology Progress Note ---
Gastroenterology Progress Note Patient underwent EGD today. No source of active bleeding seen. Please start bowel prep for colonoscopy tomorrow.
[2018-02-14] MEDS ORDERED: BISACODYL 5 MG TABEC PO ONE (17:00)
[2018-02-14] MEDS: POLYETHYLENE (MIRALAX) 17 GM PACK PO SCH (17:03)
[2018-02-14 19:32] VITALS: BP 129/94; PULSE 71; TEMP 36.9; O2SAT 99
[2018-02-14 23:46] VITALS: BP 129/89; PULSE 79; TEMP 36.8; O2SAT 97
[2018-02-15 03:28] VITALS: BP 106/68; PULSE 72; TEMP 37.2; O2SAT 94
[2018-02-15] MEDS: PANTOprazole INJ 40 MG in DEXTROSE 5% 100ML IV SCH ×4 (03:32→22:44)
[2018-02-15] MEDS: SODIUM CHLORIDE 0.9% 1000ML 1,000 ML IV SCH ×2 (03:32→15:41)
[2018-02-15] MEDS: OCTREOTIDE ACETATE INJ 500 MCG in NSS 100ML IV SCH ×3 (03:33→22:44)
[2018-02-15] MEDS: POLYETHYLENE (MIRALAX) 17 GM PACK PO SCH (05:16)
[2018-02-15] MEDS: LEVOTHYROXINE 88 MCG TAB PO SCH (05:17)
[2018-02-15 07:32] VITALS: BP 125/79; PULSE 74; TEMP 37.1; O2SAT 98
[2018-02-15] MEDS: THIAMINE HCL INJ 300 MG in SODIUM CHLORIDE 0.9% 50ML 50 ML IV SCH (08:39)
[2018-02-15] MEDS: NICOTINE 14 MG/24 HR TDSY TD SCH (09:00)
[2018-02-15] MEDS: LIDODERM (LIDOCAINE) PATCH 5% TD SCH (09:00)
--- NOTE | 2018-02-15 09:47 | Progress Note ---
Medicine Progress Note Date & Time of Visit: Feb 15, 2018 at 09:22. Subjective Pt was seen and examined Lying in bed with no distress Pt said that she does have some back pain she said that she would like to go home today after the colonoscopy Refused inpatient alcohol rehab Denies any chest pain, palpitation, dizziness and SOB Objective Last 8 Hrs Date Time Temp Pulse Resp B/P (MAP) Pulse Ox O2 Delivery O2 Flow Rate FiO2 02/15/18 08:00 Room Air 02/15/18 07:32 37.1 74 16 125/79 (94) 98 Room Air 02/15/18 04:00 Room Air 98.0 02/15/18 03:28 37.2 72 16 106/68 (81) 94 Room Air Physical Exam: General- No acute distress Head- atraumatic Eyes- PERRL, EOMI, anicteric ENT- oropharynx clear Neck- supple, no JVD Lungs- No wheezing Heart- regular rhythm Abdomen- normal bowel sounds Extremities- no calf tenderness Neuro- alert, oriented x 3; PERRL, EOMI Skin- warm & dry Assessment & Plan This is a 57 year old female with a PMH of alcohol abuse, alcoholic liver cirrhosis and esophageal varices, pancytopenia, hypothyroidism, depression - presents with dark stools for the past week. Acute Blood Loss Anemia likely secondary to Upper GI Bleed in the setting of Alcoholic Liver Cirrhosis and Hx. of Esophageal Varices Present with Hgb on admission 4.3 then dropped to 3.7 hx. Received 4 units PRBC Last Hg improved 8.5 yesterday Anemia panel: Iron actually high vitamin B12 and folate normal EGD done yesterday showed Grade non bleeding esophageal varices. No red xochitl sign or stigmata of recent bleed. 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 Avoiding NSAIDs because of GI bleed Received Morphine IV yesterday that helped Lidoderm patch Pancytopenia Secondary to alcoholism Chronic thrombocytopenia and leukopenia Hypothyroidism Continue Synthroid Depression Continue current home medications DVT ppx - SCDs FULL CODE Disposition Colonoscopy pending Will discharge once medically stable Consultants: Gastro Current Inpatient Medications: Current Inpatient Medications Medications (Trade) Dose Ordered Sig/Robby Route Start Time Stop Time Status Last Admin Dose Admin Octreotide Acetate 500 mcg/ Sodium Chloride 105 ml @ 10 mls/hr [id number] IV 02/12/18 12:43 03/14/18 12:42 02/15/18 03:33 10 MLS/HR Ondansetron HCl (Zofran Inj) 4 mg Q6H PRN IV 02/12/18 13:45 03/14/18 13:44 Folic Acid (Folvite Tab) 1 mg QAM PO 02/13/18 09:00 03/15/18 08:59 02/14/18 12:09 1 MG Gabapentin (Neurontin Cap) 300 mg TID PO 02/12/18 21:00 03/14/18 20:59 02/14/18 20:17 300 MG Levothyroxine Sodium (Synthroid Tab) 88 mcg DAILYBB PO 02/13/18 06:00 03/15/18 05:59 02/15/18 05:17 88 MCG Potassium Chloride (Klor-Con M10) 10 meq DAILY PO 02/13/18 09:00 03/15/18 08:59 02/14/18 12:11 10 MEQ Nicotine (Nicoderm Cq 14MG Patch) 1 patch QAM TD 02/13/18 09:00 03/15/18 08:59 Miscellaneous (Remove Nicoderm Patch) 1 ea HS N/A 02/12/18 21:00 03/14/18 20:59 Pantoprazole Sodium 40 mg/ Dextrose 100 ml @ 20 mls/hr Q5H IV 02/12/18 18:30 03/14/18 18:29 02/15/18 08:37 20 MLS/HR Thiamine HCl 300 mg/Sodium Chloride 53 ml @ 208 mls/hr QAM IV 02/13/18 11:00 03/15/18 10:59 02/15/18 08:39 208 MLS/HR Lidocaine (Lidoderm Patch 5%) 1 patch QAM TD 02/14/18 09:00 03/16/18 08:59 02/14/18 08:15 1 PATCH Miscellaneous (Remove Lidoderm Patch) 1 ea DAILY@21 N/A 02/13/18 22:00 03/15/18 21:59 Sodium Chloride 1,000 ml @ 75 mls/hr [id number] IV 02/14/18 00:00 03/16/18 00:00 02/15/18 03:32 75 MLS/HR
[2018-02-15] MEDS ORDERED: BISACODYL 5 MG TABEC PO ONE (11:02)
--- NOTE | 2018-02-15 11:14 | Gastroenterology Progress Note ---
Progress Note Date of Service: Feb 15, 2018 Subjective Pt evaluation today including: conversation w/ patient, physical exam, chart review, lab review, review of studies, review of inpatient medication list 57 yr old female with ETOH liver disease, hx of colon polyps was admitted on for melena, anemia. Hb on arrival 4.3, and repeat 3.7. Received 4 units of RBCs on 02/13. Hb yesterday 8.5. No gross GI bleeding during hospitalization. EGD on 02/14 w/o cause of anemia. Remains hemodynamically stable. Complete Miralax/dulcolax prep as colonoscopy was planned for today but minimal response to the prep. Two BMs, both formed and brown. Review of Systems Constitutional: No fever Respiratory: No cough Cardiac: No chest pain Abdomen: No pain, No nausea, No vomiting, No diarrhea Musculoskeletal: No joint pain Female : No dysuria Neuro: No memory loss Psych: No depression symptoms Heme: No abnormal bleeding/bruising Endo: + fatigue Skin: No rash Medications Current Inpatient Medications Medications (Trade) Dose Ordered Sig/Robby Route Start Time Stop Time Status Last Admin Dose Admin Octreotide Acetate 500 mcg/ Sodium Chloride 105 ml @ 10 mls/hr [id number] IV 02/12/18 12:43 03/14/18 12:42 02/15/18 03:33 10 MLS/HR Ondansetron HCl (Zofran Inj) 4 mg Q6H PRN IV 02/12/18 13:45 03/14/18 13:44 Folic Acid (Folvite Tab) 1 mg QAM PO 02/13/18 09:00 03/15/18 08:59 02/14/18 12:09 1 MG Gabapentin (Neurontin Cap) 300 mg TID PO 02/12/18 21:00 03/14/18 20:59 02/14/18 20:17 300 MG Levothyroxine Sodium (Synthroid Tab) 88 mcg DAILYBB PO 02/13/18 06:00 03/15/18 05:59 02/15/18 05:17 88 MCG Potassium Chloride (Klor-Con M10) 10 meq DAILY PO 02/13/18 09:00 03/15/18 08:59 02/14/18 12:11 10 MEQ Nicotine (Nicoderm Cq 14MG Patch) 1 patch QAM TD 02/13/18 09:00 03/15/18 08:59 Miscellaneous (Remove Nicoderm Patch) 1 ea HS N/A 02/12/18 21:00 03/14/18 20:59 Pantoprazole Sodium 40 mg/ Dextrose 100 ml @ 20 mls/hr Q5H IV 02/12/18 18:30 03/14/18 18:29 02/15/18 08:37 20 MLS/HR Thiamine HCl 300 mg/Sodium Chloride 53 ml @ 208 mls/hr QAM IV 02/13/18 11:00 03/15/18 10:59 02/15/18 08:39 208 MLS/HR Lidocaine (Lidoderm Patch 5%) 1 patch QAM TD 02/14/18 09:00 03/16/18 08:59 02/14/18 08:15 1 PATCH Miscellaneous (Remove Lidoderm Patch) 1 ea DAILY@21 N/A 02/13/18 22:00 03/15/18 21:59 Sodium Chloride 1,000 ml @ 75 mls/hr [id number] IV 02/14/18 00:00 03/16/18 00:00 02/15/18 03:32 75 MLS/HR Objective Vital Signs Date Time Temp Pulse Resp B/P (MAP) Pulse Ox O2 Delivery O2 Flow Rate FiO2 02/15/18 08:00 Room Air 02/15/18 07:32 37.1 74 16 125/79 (94) 98 Room Air 02/15/18 04:00 Room Air 98.0 02/15/18 03:28 37.2 72 16 106/68 (81) 94 Room Air 02/14/18 23:59 Room Air 02/14/18 23:46 36.8 79 18 129/89 (102) 97 Room Air 02/14/18 20:00 Room Air 02/14/18 19:32 36.9 71 18 129/94 (106) 99 Room Air 02/14/18 16:00 Room Air 02/14/18 15:38 36.7 81 18 110/77 (88) 99 Room Air 02/14/18 12:00 Room Air 02/14/18 12:00 36.9 65 20 127/86 (100) 7 Room Air Physical Exam General Appearance: no apparent distress Neck: no JVD Respiratory/Chest: lungs clear Cardiovascular: regular rate, rhythm, no JVD, no murmur Abdomen: non tender, soft Extremities: non-tender, no pedal edema Neurologic/Psych: alert, oriented x 3, + pertinent finding (dull affect) Skin: no jaundice Assessment and Plan Ms. Younger is a 57 yr old female with ETOH cirrhosis and known esophageal varices who is still actively drinking ETOH who was admitted for melena, anemia. EGD w/o cause. Plan: Because poor response to colonoscopy prep, will delay colonoscopy until tomorrow and will repeat prep today. I performed a history and physical examination of the patient, including specifically on physical exam - no abdominal tenderness. I have discussed the patient's management with OSCAR Carmona. Please refer to the nurse practitioner's note for the documented findings and plan of care. 2 Day prep and colonoscopy tomorrow
[2018-02-15] MEDS ORDERED: LAVAGE SOLUTION 4000ML PO ONE (11:15)
[2018-02-15 11:45] VITALS: BP 128/86; PULSE 81; TEMP 37.4; O2SAT 96
[2018-02-15] MEDS: GABAPENTIN 300 MG CAP PO SCH ×3 (12:59→21:22)
[2018-02-15] MEDS: POTASSIUM CHLORIDE 10 MEQ TABCR PO SCH (12:59)
[2018-02-15] MEDS: TRAMADOL HCL 50 MG TAB PO PRN ×2 (13:31→21:21)
[2018-02-15] MEDS ORDERED: BISACODYL 5 MG TABEC ONE (15:32)
[2018-02-15 16:29] VITALS: BP 135/91; PULSE 77; TEMP 36.7; O2SAT 98
[2018-02-15 19:49] VITALS: BP 131/79; PULSE 82; TEMP 36.5; O2SAT 98
[2018-02-16 00:02] VITALS: BP 118/71; PULSE 77; TEMP 36.6; O2SAT 97
[2018-02-16 03:47] VITALS: BP 124/71; PULSE 66; TEMP 36.8; O2SAT 95
[2018-02-16] MEDS: PANTOprazole INJ 40 MG in DEXTROSE 5% 100ML IV SCH (03:52)
[2018-02-16] MEDS: SODIUM CHLORIDE 0.9% 1000ML 1,000 ML IV SCH (03:52)
[2018-02-16] MEDS: TRAMADOL HCL 50 MG TAB PO PRN ×2 (05:15→17:01)
[2018-02-16] MEDS: LEVOTHYROXINE 88 MCG TAB PO SCH (05:15)
[2018-02-16 07:35] VITALS: BP 106/69; PULSE 72; TEMP 36.9; O2SAT 94
[2018-02-16] MEDS: THIAMINE HCL INJ 300 MG in SODIUM CHLORIDE 0.9% 50ML 50 ML IV SCH (07:43)
[2018-02-16] MEDS: GABAPENTIN 300 MG CAP PO SCH ×2 (07:43→14:43)
[2018-02-16] MEDS: NICOTINE 14 MG/24 HR TDSY TD SCH (07:44)
[2018-02-16] MEDS: LIDODERM (LIDOCAINE) PATCH 5% TD SCH (07:44)
[2018-02-16] MEDS: POTASSIUM CHLORIDE 10 MEQ TABCR PO SCH (07:44)
[2018-02-16] MEDS ORDERED: PANTOprazole SOD 40 MG TAB PO SCH (09:00)
[2018-02-16 09:36] VITALS: Ht 154.9 cm; Wt 72.8 kg
[2018-02-16 10:15] LABS: MEAN CORPUSCULAR HGB CONC 30.6 g/dl (32-36)
[2018-02-16 10:30] LABS: HEMATOCRIT 26.5 % (37-47); HEMOGLOBIN 8.1 g/dL (12.0-16.0); MEAN CELL VOLUME 78.9 fL (80-100); MEAN CORPUSCULAR HEMOGLOBIN 24.1 pg (25-34); RED CELL DISTRIBUTION WIDTH CV 20.5 % (11.5-14.5); RED CELL DISTRIBUTION WIDTH SD 58.5 fL (36.4-46.3); WHITE BLOOD COUNT 3.36 K/uL (4.8-10.8)
[2018-02-16] MEDS ORDERED: SODIUM CHLORIDE 0.9% 500ML 500 ML IV ONE (10:39)
[2018-02-16 10:41] LABS: MEAN PLATELET VOLUME 9.5 fL (7.4-10.4); PLATELET COUNT 79 K/uL (130-400)
--- NOTE | 2018-02-16 10:41 | Endo History and Physical ---
History & Physical Date of Service: Feb 16, 2018. Chief Complaint: Referring Physician: History of Present Illness Alcoholic liver cirrhosis with Hx of melena and has anemia which improved with transfusion. Past Medical History Anxiety, Thyroid Disease, Liver Disease, Other Past Surgical History Hx Cardiac Surgery: No Hx Abdominal Surgery: Yes (C-SECTIONS) Hx Post-Op Nausea and Vomiting: No Hx Cancer Surgery: No Hx Thoracic Surgery: No Hx Orthopedic: No Hx Urinary Tract Surgery: No Social History Smoking Status: Current Every Day Smoker Smokeless Tobacco Use: No Hx Substance Use: No Hx Alcohol Use: Yes (1-2 beers daily) Allergies Coded Allergies: Sulfa Antibiotics (Verified Allergy, Intermediate, HIVES, 07/13/17) Current Medications Reported Home Medications Medications Dose Route/Sig Max Daily Dose Days Date Category Dose Instructions Lasix (Furosemide) 20 Mg Tab 20 Mg PO DAILY 07/13/17 Reported Synthroid (Levothyroxine Sodium) 88 Mcg Tab 88 Mcg PO DAILY 07/13/17 Reported Vitamin B-1 (Thiamine HCl) 100 Mg Tab 100 Mg PO QAM 30 06/07/17 Rx Folic Acid 1 Mg Tab 1 Mg PO QAM 30 06/07/17 Rx Percocet 5MG/325MG (Oxycodone/Acetaminophen) Tab 1 Tab PO Q4H PRN 2 06/07/17 Rx PAIN Micro-K Ext Rel (Potassium Chloride) 10 Meq Capcr Unknown Dose PO DAILY 06/03/17 Reported Neurontin (Gabapentin) 300 Mg Cap 300 Mg PO TID 06/03/17 Reported Vital Signs Weight (Kilograms): 72.800 Height (Feet): 5 Height (Inches): 1.00 Date Time Temp Pulse Resp B/P (MAP) Pulse Ox O2 Delivery O2 Flow Rate FiO2 02/16/18 10:32 36.9 70 20 129/90 (103) 97 Room Air 02/16/18 08:00 Room Air 02/16/18 07:35 36.9 72 16 106/69 (81) 94 02/16/18 04:00 Room Air 02/16/18 03:47 36.8 66 18 124/71 (88) 95 Room Air 02/16/18 00:02 36.6 77 18 118/71 (87) 97 02/15/18 23:59 Room Air 02/15/18 20:00 Room Air 02/15/18 19:49 36.5 82 20 131/79 (96) 98 Room Air 02/15/18 16:29 36.7 77 20 135/91 (106) 98 Room Air 02/15/18 16:00 Room Air 02/15/18 12:00 Room Air 02/15/18 11:45 37.4 81 20 128/86 (100) 96 Room Air Physical Exam General Appearance: no apparent distress Respiratory/Chest: Auscultation: breath sounds normal Cardiovascular: Heart Auscultation: RRR Abdomen: Inspection & Palpation: soft Liver: non-tender Assessment and Plan Stable for colonoscopy
[2018-02-16] MEDS ORDERED: LIDOCAINE HCL 2% 2 ML VIAL (20MG/ML) ONE (11:59)
[2018-02-16] MEDS ORDERED: PROPOFOL IV EMULSION 10 MG/ML 20 ML VIAL IV ONE (11:59)
[2018-02-16 12:00] VITALS: BP 134/93; PULSE 60; TEMP 36.6; O2SAT 99
--- NOTE | 2018-02-16 12:00 | GI REPORT ---
Procedure Date: 02/16/2018 11:02 AM Procedure: Colonoscopy Indications: Rectal bleeding, Anemia Medicines: Monitored Anesthesia Care Complications: No immediate complications. Estimated Blood Loss: Estimated blood loss: none. Procedure: Pre-Anesthesia Assessment: - Prior to the procedure, a History and Physical was performed, and patient medications and allergies were reviewed. The patient is competent. The risks and benefits of the procedure and the sedation options and risks were discussed with the patient. All questions were answered and informed consent was obtained. Patient identification and proposed procedure were verified by the physician and the nurse in the procedure room. Mental Status Examination: alert and oriented. Airway Examination: normal oropharyngeal airway and neck mobility. Respiratory Examination: clear to auscultation. CV Examination: normal. ASA Grade Assessment: III - A patient with severe systemic disease. After reviewing the risks and benefits, the patient was deemed in satisfactory condition to undergo the procedure. The anesthesia plan was to use monitored anesthesia care (MAC). Immediately prior to administration of medications, the patient was re-assessed for adequacy to receive sedatives. The heart rate, respiratory rate, oxygen saturations, blood pressure, adequacy of pulmonary ventilation, and response to care were monitored throughout the procedure. The physical status of the patient was re-assessed after the procedure. After I obtained informed consent, the scope was passed under direct vision. Throughout the procedure, the patient's blood pressure, pulse, and oxygen saturations were monitored continuously. The Scope was introduced through the anus and advanced to the terminal ileum. The colonoscopy was performed without difficulty. The patient tolerated the procedure well. The quality of the bowel preparation was good. The terminal ileum, ileocecal valve, appendiceal orifice, and rectum were photographed. Scope withdrawal time was 15 minutes. Findings: The perianal and digital rectal examinations were normal. The terminal ileum appeared normal. A post polypectomy scar was found in the transverse colon. There was residual polyp tissue. A 22 mm residual polyp tissue was found in the transverse colon. The polyp was sessile. The polyp was removed with a hot snare underwater EMR, en bloc. Resection and retrieval were complete. Verification of patient identification for the specimen was done by the physician and nurse using the patient's name and date. A tattoo was seen in the transverse colon. A post-polypectomy scar was found at the tattoo site. A 8 mm polyp was found in the sigmoid colon. The polyp was sessile. The polyp was removed with a hot snare. Resection and retrieval were complete. Non-bleeding internal hemorrhoids were found during retroflexion. The hemorrhoids were small. Impression: - The examined portion of the ileum was normal. - A tattoo and post-polypectomy scar in the transverse colon. A Residual 22 mm polyp seen, removed with a hot snare. Resected and retrieved. - One 8 mm polyp in the sigmoid colon, removed with a hot snare. Resected and retrieved. - Non-bleeding internal hemorrhoids. Recommendation: - Return patient to [facility] for [facility] care. - Full liquid/ soft diet today then advance tomorrow. - Avoid NSAIDs for 2 weeks. - Continue present medications. - Await pathology results. - Repeat colonoscopy in 1 year for surveillance. Ester Calixto MD 02/16/2018 12:00:12 PM This report has been signed electronically. Note Initiated On: 02/16/2018 11:02 AM I attest to the content of the Intraoperative Record and orders documented therein, exceptions below
--- NOTE | 2018-02-16 12:07 | Anesthesiology Progress Note ---
Anesthesia Post Op Note Date & Time Feb 16, 2018 at 12:06 Vital Signs Pain Intensity: 0 Vital Signs Past 12 Hours Date Time Temp Pulse Resp B/P (MAP) Pulse Ox O2 Delivery O2 Flow Rate FiO2 02/16/18 12:02 74 20 128/78 (95) 97 Room Air 02/16/18 11:59 75 20 125/85 (98) 96 Room Air 02/16/18 10:32 36.9 70 20 129/90 (103) 97 Room Air 02/16/18 08:00 Room Air 02/16/18 07:35 36.9 72 16 106/69 (81) 94 02/16/18 04:00 Room Air 02/16/18 03:47 36.8 66 18 124/71 (88) 95 Room Air Notes Mental Status: alert / awake / arousable, participated in evaluation Pt Amnestic to Procedure: Yes Nausea / Vomiting: adequately controlled Pain: adequately controlled Airway Patency, RR, SpO2: stable & adequate BP & HR: stable & adequate Hydration State: stable & adequate Anesthetic Complications: no major complications apparent
--- NOTE | 2018-02-16 14:27 | Progress Note ---
Medicine Progress Note Date & Time of Visit: Feb 16, 2018 at 14:10. Subjective Pt was seen and examined Lying in bed with no distress Pt said that she does not have any bloody stool anymore She said that she is hungry Complaint of back pain Denies any chest pain, palpitation, dizziness and SOB Objective Last 8 Hrs Date Time Temp Pulse Resp B/P (MAP) Pulse Ox O2 Delivery O2 Flow Rate FiO2 02/16/18 12:29 71 20 135/87 (103) 97 Room Air 02/16/18 12:18 67 20 131/94 (106) 98 Room Air 02/16/18 12:08 76 20 137/82 (100) 98 Room Air 02/16/18 12:02 74 20 128/78 (95) 97 Room Air 02/16/18 12:00 36.6 60 16 134/93 (107) 99 Room Air 02/16/18 12:00 Room Air 02/16/18 11:59 75 20 125/85 (98) 96 Room Air 02/16/18 10:32 36.9 70 20 129/90 (103) 97 Room Air 02/16/18 08:00 Room Air 02/16/18 07:35 36.9 72 16 106/69 (81) 94 Physical Exam: General- No acute distress Head- atraumatic Eyes- PERRL, EOMI, anicteric ENT- oropharynx clear Neck- supple, no JVD Lungs- No wheezing Heart- regular rhythm Abdomen- normal bowel sounds Extremities- no calf tenderness Neuro- alert, oriented x 3; PERRL, EOMI Skin- warm & dry Laboratory Results: Last 24 Hours Test 02/16/18 10:01 White Blood Count 3.36 K/uL Red Blood Count 3.36 M/uL Hemoglobin 8.1 g/dL Hematocrit 26.5 % Mean Corpuscular Volume 78.9 fL Mean Corpuscular Hemoglobin 24.1 pg Mean Corpuscular Hemoglobin Concent 30.6 g/dl RDW Standard Deviation 58.5 fL RDW Coefficient of Variation 20.5 % Platelet Count 79 K/uL Mean Platelet Volume 9.5 fL Platelet Estimate DECREASED Assessment & Plan This is a 57 year old female with a PMH of alcohol abuse, alcoholic liver cirrhosis and esophageal varices, pancytopenia, hypothyroidism, depression - presents with dark stools for the past week. Acute Blood Loss Anemia likely secondary to Upper GI Bleed in the setting of Alcoholic Liver Cirrhosis and Hx. of Esophageal Varices Present with Hgb on admission 4.3 then dropped to 3.7 hx. Received 4 units PRBC Last Hg improved 8.1 today Anemia panel: Iron actually high vitamin B12 and folate normal EGD done yesterday showed Grade non bleeding esophageal varices. No red xochitl sign or stigmata of recent bleed. Colonoscopy done today showed a residual 22 mm polyp and 8 mm polyp in the sigmoid colon. 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 Pham (Dr. Abdalla's colleague) on 02/23 @ 10:00 Consultants: Gastro Current Inpatient Medications: Current Inpatient Medications Medications (Trade) Dose Ordered Sig/Robby Route Start Time Stop Time Status Last Admin Dose Admin Ondansetron HCl (Zofran Inj) 4 mg Q6H PRN IV 02/12/18 13:45 03/14/18 13:44 Folic Acid (Folvite Tab) 1 mg QAM PO 02/13/18 09:00 03/15/18 08:59 02/16/18 07:44 1 MG Gabapentin (Neurontin Cap) 300 mg TID PO 02/12/18 21:00 03/14/18 20:59 02/16/18 07:43 300 MG Levothyroxine Sodium (Synthroid Tab) 88 mcg DAILYBB PO 02/13/18 06:00 03/15/18 05:59 02/16/18 05:15 88 MCG Potassium Chloride (Klor-Con M10) 10 meq DAILY PO 02/13/18 09:00 03/15/18 08:59 02/16/18 07:44 10 MEQ Nicotine (Nicoderm Cq 14MG Patch) 1 patch QAM TD 02/13/18 09:00 03/15/18 08:59 Miscellaneous (Remove Nicoderm Patch) 1 ea HS N/A 02/12/18 21:00 03/14/18 20:59 Thiamine HCl 300 mg/Sodium Chloride 53 ml @ 208 mls/hr QAM IV 02/13/18 11:00 03/15/18 10:59 02/16/18 07:43 208 MLS/HR Lidocaine (Lidoderm Patch 5%) 1 patch QAM TD 02/14/18 09:00 03/16/18 08:59 02/14/18 08:15 1 PATCH Miscellaneous (Remove Lidoderm Patch) 1 ea DAILY@21 N/A 02/13/18 22:00 03/15/18 21:59 Sodium Chloride 1,000 ml @ 75 mls/hr [id number] IV 02/14/18 00:00 03/16/18 00:00 02/16/18 03:52 75 MLS/HR Tramadol HCl (Ultram Tab) 50 mg Q8 PRN PO 02/15/18 13:30 03/17/18 13:29 02/16/18 05:15 50 MG Pantoprazole Sodium (Protonix Tab) 40 mg QAM PO 02/16/18 09:00 03/18/18 08:59 02/16/18 13:53 40 MG Sodium Chloride 500 ml @ 15 mls/hr Q24H ONCE IV 02/16/18 10:39 02/17/18 10:38
[2018-02-16] MEDS ORDERED: PRT40 PO (15:11)
--- NOTE | 2018-02-16 15:21 | Discharge Instructions ---
Discharge Instructions Date of Service Feb 16, 2018. Admission Reason for Admission: Anemia, Gi Bleed Discharge Discharge Diagnosis / Problem: Acute Blood Loss Anemia likely secondary to Upper GI Bleed, Alcohol abuse Discharge Goals Goal(s): Decrease discomfort, Improve function, Improve disease control Activity Recommendations Activity Limitations: resume your previous activity (as tolerated) Instructions / Follow-Up Instructions / Follow-Up Follow up with Dr. Pham (Dr. Abdalla Colleague) on 02/23 @ 10:00 AM Follow up with gastroenterology as an outpatient No NSAIDS (such as Aspirin, Motrin, Aleve, Ibuprofen, Naproxen, Advil,.. ) for at least 2 weeks Counseling on alcohol cessation Continue pantoprazole daily Continue soft diet for today, then advance as tolerated tomorrow Check CBC within 1 week . Current Hospital Diet Patient's current hospital diet: Regular Diet Discharge Diet Diet Texture: Mechanical Soft (ground) Procedures Procedures Performed: EGD and COLONOSCOPY Pending Studies Studies pending at discharge: yes (COLONOSCOPY PATHOLOGY ) Medical Emergencies . Who to Call and When: Medical Emergencies: If at any time you feel your situation is an emergency, please call 911 immediately. . Non-Emergent Contact Non-Emergency issues call your: Primary Care Provider, Electronic Engineering Draftsperson Call Non-Emergent contact if: you have any medication questions . . "Provider Documentation" section prepared by Eliud Yu. . [place] Drug Monitoring Program Search Results: no issues identified
[2018-02-16 15:37] VITALS: BP 127/73; PULSE 66; TEMP 36.7; O2SAT 98
[2018-02-16 17:02] VITALS: BP 127/73; PULSE 66; TEMP 36.7; O2SAT 98
--- NOTE | 2018-02-18 00:08 | Discharge Summary ---
Discharge Summary Date of Service Feb 17, 2018. Discharge Summary Admission Date: Feb 12, 2018 at 13:47 Discharge Date: Feb 16, 2018 Discharge Disposition: Home Principal Diagnosis: Acute Blood Loss Anemia likely secondary to Upper GI Bleed Secondary Diagnoses/Problems: Alcohol abuse Alcoholic Liver Cirrhosis Hx. of Esophageal Varices Low back pain pancytopenia Depression Hypothyroidism Procedures: DICTATED BY: Ester Calixto M.D. Procedure Date: 02/16/2018 11:02 AM Procedure: Colonoscopy Indications: Rectal bleeding, Anemia Medicines: Monitored Anesthesia Care Complications: No immediate complications. Estimated Blood Loss: Estimated blood loss: none. Procedure: Pre-Anesthesia Assessment: - Prior to the procedure, a History and Physical was performed, and patient medications and allergies were reviewed. The patient is competent. The risks and benefits of the procedure and the sedation options and risks were discussed with the patient. All questions were answered and informed consent was obtained. Patient identification and proposed procedure were verified by the physician and the nurse in the procedure room. Mental Status Examination: alert and oriented. Airway Examination: normal oropharyngeal airway and neck mobility. Respiratory Examination: clear to auscultation. CV Examination: normal. ASA Grade Assessment: III - A patient with severe systemic disease. After reviewing the risks and benefits, the patient was deemed in satisfactory condition to undergo the procedure. The anesthesia plan was to use monitored anesthesia care (MAC). Immediately prior to administration of medications, the patient was re-assessed for adequacy to receive sedatives. The heart rate, respiratory rate, oxygen saturations, blood pressure, adequacy of pulmonary ventilation, and response to care were monitored throughout the procedure. The physical status of the patient was re-assessed after the procedure. After I obtained informed consent, the scope was passed under direct vision. Throughout the procedure, the patient's blood pressure, pulse, and oxygen saturations were monitored continuously. The Scope was introduced through the anus and advanced to the terminal ileum. The colonoscopy was performed without difficulty. The patient tolerated the procedure well. The quality of the bowel preparation was good. The terminal ileum, ileocecal valve, appendiceal orifice, and rectum were photographed. Scope withdrawal time was 15 minutes. Findings: The perianal and digital rectal examinations were normal. The terminal ileum appeared normal. A post polypectomy scar was found in the transverse colon. There was residual polyp tissue. A 22 mm residual polyp tissue was found in the transverse colon. The polyp was sessile. The polyp was removed with a hot snare underwater EMR, en bloc. Resection and retrieval were complete. Verification of patient identification for the specimen was done by the physician and nurse using the patient's name and date. A tattoo was seen in the transverse colon. A post-polypectomy scar was found at the tattoo site. A 8 mm polyp was found in the sigmoid colon. The polyp was sessile. The polyp was removed with a hot snare. Resection and retrieval were complete. Non-bleeding internal hemorrhoids were found during retroflexion. The hemorrhoids were small. Impression: - The examined portion of the ileum was normal. - A tattoo and post-polypectomy scar in the transverse colon. A Residual 22 mm polyp seen, removed with a hot snare. Resected and retrieved. - One 8 mm polyp in the sigmoid colon, removed with a hot snare. Resected and retrieved. - Non-bleeding internal hemorrhoids. Recommendation: - Return patient to [facility] for [facility] care. - Full liquid/ soft diet today then advance tomorrow. - Avoid NSAIDs for 2 weeks. - Continue present medications. - Await pathology results. - Repeat colonoscopy in 1 year for surveillance. Ester Calixto MD 02/16/2018 12:00:12 PM This report has been signed electronically. Note Initiated On: 02/16/2018 11:02 AM I attest to the content of the Intraoperative Record and orders documented therein, exceptions below Dictated: 02/16/18 1102 Signed: 02/16/18 1200 DICTATED BY: Ester Calixto M.D. Procedure Date: 02/14/2018 9:53 AM Procedure: Upper GI endoscopy Indications: Anemia Medicines: Monitored Anesthesia Care Complications: No immediate complications. Estimated Blood Loss: Estimated blood loss: none. Procedure: Pre-Anesthesia Assessment: - Prior to the procedure, a History and Physical was performed, and patient medications and allergies were reviewed. The patient is competent. The risks and benefits of the procedure and the sedation options and risks were discussed with the patient. All questions were answered and informed consent was obtained. Patient identification and proposed procedure were verified by the physician and the nurse in the procedure room. Mental Status Examination: alert and oriented. Airway Examination: normal oropharyngeal airway and neck mobility. Respiratory Examination: clear to auscultation. CV Examination: normal. ASA Grade Assessment: III - A patient with severe systemic disease. After reviewing the risks and benefits, the patient was deemed in satisfactory condition to undergo the procedure. The anesthesia plan was to use monitored anesthesia care (MAC). Immediately prior to administration of medications, the patient was re-assessed for adequacy to receive sedatives. The heart rate, respiratory rate, oxygen saturations, blood pressure, adequacy of pulmonary ventilation, and response to care were monitored throughout the procedure. The physical status of the patient was re-assessed after the procedure. After obtaining informed consent, the endoscope was passed under direct vision. Throughout the procedure, the patient's blood pressure, pulse, and oxygen saturations were monitored continuously. The scope was introduced through the mouth, and advanced to the second part of duodenum. The upper GI endoscopy was accomplished without difficulty. The patient tolerated the procedure well. Findings: Grade I, small varices were found in the lower third of the esophagus which flattens with air insuffilation. No red bal sign or stigmata of recent bleed. The entire examined stomach was normal. The duodenal bulb and second portion of the duodenum were normal. Impression: - Grade I, non-bleeding esophageal varices. No red bal sign or stigmata of recent bleed. - Normal stomach. Bile noted. No blood. - Normal duodenal bulb and second portion of the duodenum. - No specimens collected. Recommendation: - Return patient to [facility] for ongoing care. - Repeat upper endoscopy in 1 year for surveillance. Consider BB if no contraindications. - Perform a colonoscopy tomorrow. Ester Calixto MD 02/14/2018 10:27:22 AM This report has been signed electronically. Note Initiated On: 02/14/2018 9:53 AM I attest to the content of the Intraoperative Record and orders documented therein, exceptions below Dictated: 02/14/18 0953 Signed: 02/14/18 1027 Consultations: Gastro Medication Reconciliation New Medications: Pantoprazole (Pantoprazole Sodium) 40 Mg Tab 40 MG PO QAM for 30 Days, #30 TAB Continued Medications: Folic Acid (Folic Acid) 1 Mg Tab 1 MG PO QAM for 30 Days, #30 TAB Furosemide (Lasix) 20 Mg Tab 20 MG PO DAILY, TAB Gabapentin (Neurontin) 300 Mg Cap 300 MG PO TID, CAP Levothyroxine Sodium (Synthroid) 88 Mcg Tab 88 MCG PO DAILY, TAB Oxycodone/Acetaminophen 5MG/325MG (Percocet 5MG/325MG) Tab 1 TAB PO Q4H PRN for Pain for 2 Days, #6 TAB PAIN Potassium Chloride (Micro-K Ext Rel) 10 Meq Capcr Unknown Dose PO DAILY, CAP Thiamine HCl (Vitamin B-1) 100 Mg Tab 100 MG PO QAM for 30 Days, #30 TAB Admission Information HPI (per Admitting provider): This is a 57 year old female with a PMH of alcohol abuse, alcoholic liver cirrhosis and esophageal varices, pancytopenia, hypothyroidism, depression - presents with dark stools for the past week; she states that she made a mistake and had too much to drink about 5 days ago. States that she had a week of dark stools, and the past few days have been normal. She went to see her primary care physician on 02/11, due to worsening generalized weakness, shortness of breath with exertion, and dizziness upon standing. Recommendation was made that the patient come to the ER; she presented to the ER on 02/12 and found to have Hgb of 4.3. Rectal exam performed by ER physician showed brown stools. As per patient, she has not had dark stools in about 4-5 days. Patient currently with no symptoms at rest. 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 Protonix and Octreotide drips started. Type and Crossed Red Blood Cells. Physical Exam (per Admitting): General Appearance: WD/WN, no apparent distress Head: normocephalic, atraumatic Eyes: normal inspection ENT: + pertinent finding (dry mucous membranes) Neck: supple Respiratory/Chest: chest non-tender, lungs clear, normal breath sounds, no respiratory distress, no accessory muscle use Cardiovascular: regular rate, rhythm, no edema, no gallop, no JVD, no murmur , normal peripheral pulses Abdomen/GI: normal bowel sounds, non tender, soft Back: no CVA tenderness, no muscle spasm Extremities/Musculoskelatal: normal inspection, no calf tenderness, normal capillary refill, no pedal edema, normal range of motion Neurologic/Psych: success coach II-XII nml as tested, no motor/sensory deficits, alert , normal mood/affect, oriented x 3 Skin: normal color Lymphatic: no adenopathy Hospital Course This is a 57 year old female with a PMH of alcohol abuse, alcoholic liver cirrhosis and esophageal varices, pancytopenia, hypothyroidism, depression - presents with dark stools for the past week. Acute Blood Loss Anemia likely secondary to Upper GI Bleed in the setting of Alcoholic Liver Cirrhosis and Hx. of Esophageal Varices Present with Hgb on admission 4.3 then dropped to 3.7 hx. Received 4 units PRBC Last Hg improved 8.1 today Anemia panel: Iron actually high vitamin B12 and folate normal EGD done yesterday showed Grade non bleeding esophageal varices. No red xochitl sign or stigmata of recent bleed. Colonoscopy done today showed a residual 22 mm polyp and 8 mm polyp in the sigmoid colon. 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 Pham (Dr. Abdalla's colleague) on 02/23 @ 10:00 Total time spent on discharge = 35 minutes This includes examination of the patient, discharge planning, medication reconciliation, and communication with other providers. Discharge Instructions DI: Medical v5 Discharge Instructions Date of Service Feb 16, 2018. Admission Reason for Admission: Anemia, Gi Bleed Discharge Discharge Diagnosis / Problem: Acute Blood Loss Anemia likely secondary to Upper GI Bleed, Alcohol abuse Discharge Goals Goal(s): Decrease discomfort, Improve function, Improve disease control Activity Recommendations Activity Limitations: resume your previous activity (as tolerated) Instructions / Follow-Up Instructions / Follow-Up Follow up with Dr. Pham (Dr. Abdalla Colleague) on 02/23 @ 10:00 AM Follow up with gastroenterology as an outpatient No NSAIDS (such as Aspirin, Motrin, Aleve, Ibuprofen, Naproxen, Advil,.. ) for at least 2 weeks Counseling on alcohol cessation Continue pantoprazole daily Continue soft diet for today, then advance as tolerated tomorrow Check CBC within 1 week . Current Hospital Diet Patient's current hospital diet: Regular Diet Discharge Diet Diet Texture: Mechanical Soft (ground) Procedures Procedures Performed: EGD and COLONOSCOPY Pending Studies Studies pending at discharge: yes (COLONOSCOPY PATHOLOGY ) Medical Emergencies . Who to Call and When: Medical Emergencies: If at any time you feel your situation is an emergency, please call 911 immediately. . Non-Emergent Contact Non-Emergency issues call your: Primary Care Provider, [employer] Driver Call Non-Emergent contact if: you have any medication questions . . "Provider Documentation" section prepared by Eliud Yu. Jonny PA Drug Monitoring Program Search Results: no issues identified Additional Copies To Salomon Pham M.D.
== END 2018-02-16 18:08 | disposition home or self-care (01) | DRG 378 ==
LOC: C.EDB 11:24 → C.2E 13:47 → ENRESERV 13:57 → C.MSICU 23:06 → ENRESERV 02-13 17:59 → C.2E 02-13 18:47
PROVIDERS: ADMIT Family Medicine; ATTEND Internal Medicine
PROC: 0DJ08ZZ Inspection of Upper Intestinal Tract, Via Natural or Artificial Opening Endoscopic (ICD-10-PCS; principal; 2018-02-14 09:23)
PROC: 0DBN8ZX Excision of Sigmoid Colon, Via Natural or Artificial Opening Endoscopic, Diagnostic (ICD-10-PCS; 2018-02-16)
PROC: 0DBL8ZX Excision of Transverse Colon, Via Natural or Artificial Opening Endoscopic, Diagnostic (ICD-10-PCS; 2018-02-16)
DX: K92.2 Gastrointestinal hemorrhage, unspecified (principal); D62 Acute posthemorrhagic anemia; D61.818 Other pancytopenia; K70.30 Alcoholic cirrhosis of liver without ascites; I85.10 Secondary esophageal varices without bleeding; F10.20 Alcohol dependence, uncomplicated; D12.3 Benign neoplasm of transverse colon; D12.5 Benign neoplasm of sigmoid colon; M54.5 Low back pain; E03.9 Hypothyroidism, unspecified; F32.9 Major depressive disorder, single episode, unspecified; F17.200 Nicotine dependence, unspecified, uncomplicated; K64.8 Other hemorrhoids; Z86.010 Personal history of colon polyps; Z79.899 Other long term (current) drug therapy; Z88.2 Allergy status to sulfonamides